=== PATIENT | female | born 1990 | race African-American/Black ===

== ENCOUNTER 2019-08-28 00:24 | Emergency (ER) | payer SELFPAY, OTHER ==
--- OUTSIDE RECORDS SUMMARY | 2019-08-28 00:28 | XMS REPORT ---
:1990 [facility] Organization [facility] Address [address] [place] [address] Care Team Providers Name Role Phone Unavailable Unavailable Unavailable Payers Payer Name Policy Type Policy Number Effective Date Expiration Date Problems This patient has no known problems. Allergies, Adverse Reactions, Alerts Allergy Allergy Status Severity Reaction(s) Onset Inactive Treating Comments Name Type Date Date Clinician No Known DA Active U 2013-01 Allergies -13 00:00:0 0 Medications This patient has no known medications. Results Test Description Test Time Test Comments Text Results Atomic Results Result Comments CBC W/O DIFF 2019-02-26 19:05:00 Test Item Value Reference Range Comments WHITE BLOOD CELL (test code=WBC) 8.4 K/MM3 3.8-9.8 RED BLOOD CELL (test code=RBC) 5.01 M/MM3 3.58-4.97 HEMOGLOBIN (test code=HGB) 10.9 G/DL 11.2-14.9 HEMATOCRIT (test code=HCT) 34.6 % 33.2-43.5 MEAN CELL VOLUME (test code=MCV) 69 fL 80.7-99.1 MEAN CELL HGB (test code=MCH) 21.8 pg 27.0-34.1 MEAN CELL HGB CONCETRATION (test code=MCHC) 31.5 % 32.2-35.7 RED CELL DISTRIBUTION WIDTH (test code=RDW) 17.2 % 12.1-15.2 PLATELET COUNT (test code=PLT) 338 K/MM3 129-368 NEUTROPHIL # (test code=NT#) 2.86 K/mm3 2.0-7.6 IMMATURE GRANULOCYTE # (test code=IG#) 0.02 x10 3/uL 0-0.03 LYMPHOCYTE # (test code=LY#) 4.77 K/mm3 1.0-3.8 MONOCYTE # (test code=MO#) 0.59 K/mm3 0.1-0.8 EOSINOPHIL # (test code=EO#) 0.11 K/mm3 0.0-0.2 BASOPHIL # (test code=BA#) 0.05 K/mm3 0.0-0.2 NUCLEATED RBC # (test code=NRBC#) 0.00 K/mm3 0.0-0.1 DIFFERENTIAL [id number] 19:05:00 Test Item Value Reference Range Comments RBC MORPHOLOGY REQUIRED (test code=RBCM) ABNORMAL ANISOCYTOSIS (test code=ANISO) SLIGHT NONE MICROCYTOSIS (test code=MICR) MODERATE NONE MACROCYTOSIS (test code=MACR) FEW NONE TARGET CELLS (test code=TGT) MODERATE NONE ELLIPTOCYTES (test code=ELL) FEW NONE PLATELET ESTIMATE (test code=PLTEST) ADEQUATE ADEQUATE PLATELET MORPHOLOGY (test code=PLTMORPH) NORMAL NORMAL BASIC METABOLIC [id number] 18:42:00 Test Item Value Reference Range Comments SODIUM (test code=NA) 138 MMOL/L 137-145 POTASSIUM (test code=K) 4.5 MMOL/L 3.5-5.1 CHLORIDE (test code=CL) 110 MMOL/L 98-107 CARBON DIOXIDE (test code=CO2) 22 MMOL/L 22-30 GLUCOSE (test code=GLU) 91 MG/DL 74-106 BLOOD UREA NITROGEN (test 15 MG/DL 7-17 code=BUN) GLOMERULAR FILTRATION RATE > 60 Reporting units: ml/min/1.73 (test code=GFR) m2 (Modified MDRD Formula)Reference Range: > or=60 ml/min/1.73 m2 CREATININE (test code=CREAT) 0.70 MG/DL 0.52-1.04 CALCIUM (test code=CA) 9.2 MG/DL 8.4-10.2 HEPATIC FUNCTION [id number] 18:42:00 Test Item Value Reference Range Comments TOTAL PROTEIN (test code=PROT) 7.1 G/DL 6.3-8.2 ALBUMIN (test code=ALB) 4.2 G/DL 3.5-5.0 BILIRUBIN TOTAL (test code=BILT) 0.5 MG/DL 0.2-1.3 BILIRUBIN DIRECT (test code=BILD) 0.0 MG/DL 0.0-0.3 SGOT/AST (test code=AST) 19 UNITS/L 14-36 SGPT/ALT (test code=ALT) 12 UNITS/L 9-52 ALKALINE PHOSPHATASE (test code=ALKP) 85 UNITS/L 38-126 [id number] 18:42:00 Test Item Value Reference Range Comments LIPASE (test code=LIP) 109 UNITS/L 23-300 HCG SERUM [id number] 18:42:00 Test Item Value Reference Range Comments HCG SERUM QUAL (test code=HCGQL) NEGATIVE NEGATIVE BASIC METABOLIC [id number] 18:40:00 Test Item Value Reference Range Comments SODIUM (test code=NA) 138 MMOL/L 137-145 POTASSIUM (test code=K) 4.5 MMOL/L 3.5-5.1 CHLORIDE (test code=CL) 110 MMOL/L 98-107 CARBON DIOXIDE (test code=CO2) 22 MMOL/L 22-30 GLUCOSE (test code=GLU) 91 MG/DL 74-106 BLOOD UREA NITROGEN (test 15 MG/DL 7-17 code=BUN) GLOMERULAR FILTRATION RATE > 60 Reporting units: ml/min/1.73 (test code=GFR) m2 (Modified MDRD Formula)Reference Range: > or=60 ml/min/1.73 m2 CREATININE (test code=CREAT) 0.70 MG/DL 0.52-1.04 CALCIUM (test code=CA) 9.2 MG/DL 8.4-10.2 HEPATIC FUNCTION [id number] 18:40:00 Test Item Value Reference Range Comments TOTAL PROTEIN (test code=PROT) 7.1 G/DL 6.3-8.2 ALBUMIN (test code=ALB) 4.2 G/DL 3.5-5.0 BILIRUBIN TOTAL (test code=BILT) 0.5 MG/DL 0.2-1.3 BILIRUBIN DIRECT (test code=BILD) 0.0 MG/DL 0.0-0.3 SGOT/AST (test code=AST) 19 UNITS/L 14-36 SGPT/ALT (test code=ALT) 12 UNITS/L 9-52 ALKALINE PHOSPHATASE (test code=ALKP) 85 UNITS/L 38-126 [id number] 18:40:00 Test Item Value Reference Range Comments LIPASE (test code=LIP) 109 UNITS/L 23-300 HCG SERUM [id number] 18:40:00 Test Item Value Reference Range Comments HCG SERUM QUAL (test code=HCGQL) NEGATIVE BASIC METABOLIC [id number] 18:39:00 Test Item Value Reference Range Comments SODIUM (test code=NA) 138 MMOL/L 137-145 POTASSIUM (test code=K) 4.5 MMOL/L 3.5-5.1 CHLORIDE (test code=CL) 110 MMOL/L 98-107 CARBON DIOXIDE (test code=CO2) 22 MMOL/L 22-30 GLUCOSE (test code=GLU) 91 MG/DL 74-106 BLOOD UREA NITROGEN (test 15 MG/DL 7-17 code=BUN) GLOMERULAR FILTRATION RATE > 60 Reporting units: ml/min/1.73 (test code=GFR) m2 (Modified MDRD Formula)Reference Range: > or=60 ml/min/1.73 m2 CREATININE (test code=CREAT) 0.70 MG/DL 0.52-1.04 CALCIUM (test code=CA) MG/DL 8.7-9.7 HEPATIC FUNCTION [id number] 18:39:00 Test Item Value Reference Range Comments TOTAL PROTEIN (test code=PROT) 7.1 G/DL 6.3-8.2 ALBUMIN (test code=ALB) 4.2 G/DL 3.5-5.0 BILIRUBIN TOTAL (test code=BILT) 0.5 MG/DL 0.2-1.3 BILIRUBIN DIRECT (test code=BILD) 0.0 MG/DL 0.0-0.3 SGOT/AST (test code=AST) 19 UNITS/L 14-36 SGPT/ALT (test code=ALT) UNITS/L 9-52 ALKALINE PHOSPHATASE (test code=ALKP) 85 UNITS/L 38-126 [id number] 18:39:00 Test Item Value Reference Range Comments LIPASE (test code=LIP) UNITS/L 23-300 HCG SERUM [id number] 18:39:00 Test Item Value Reference Range Comments HCG SERUM QUAL (test code=HCGQL) NEGATIVE BASIC METABOLIC [id number] 18:37:00 Test Item Value Reference Range Comments SODIUM (test code=NA) 138 MMOL/L 137-145 POTASSIUM (test code=K) 4.5 MMOL/L 3.5-5.1 CHLORIDE (test code=CL) 110 MMOL/L 98-107 CARBON DIOXIDE (test code=CO2) MMOL/L 22-30 GLUCOSE (test code=GLU) MG/DL 74-106 BLOOD UREA NITROGEN (test code=BUN) MG/DL 7-17 GLOMERULAR FILTRATION RATE (test code=GFR) CREATININE (test code=CREAT) MG/DL 0.52-1.04 CALCIUM (test code=CA) MG/DL 8.7-9.7 HEPATIC FUNCTION [id number] 18:37:00 Test Item Value Reference Range Comments TOTAL PROTEIN (test code=PROT) G/DL 6.3-8.2 ALBUMIN (test code=ALB) 4.2 G/DL 3.5-5.0 BILIRUBIN TOTAL (test code=BILT) MG/DL 0.2-1.3 BILIRUBIN DIRECT (test code=BILD) MG/DL 0.0-0.3 SGOT/AST (test code=AST) UNITS/L 15-37 SGPT/ALT (test code=ALT) UNITS/L 9-52 ALKALINE PHOSPHATASE (test code=ALKP) UNITS/L 38-126 [id number] 18:37:00 Test Item Value Reference Range Comments LIPASE (test code=LIP) UNITS/L 23-300 HCG SERUM [id number] 18:37:00 Test Item Value Reference Range Comments HCG SERUM QUAL (test code=HCGQL) NEGATIVE BASIC METABOLIC [id number] 18:36:00 Test Item Value Reference Range Comments SODIUM (test code=NA) 138 MMOL/L 137-145 POTASSIUM (test code=K) MMOL/L 3.5-5.1 CHLORIDE (test code=CL) 110 MMOL/L 98-107 CARBON DIOXIDE (test code=CO2) MMOL/L 22-30 GLUCOSE (test code=GLU) MG/DL 74-106 BLOOD UREA NITROGEN (test code=BUN) MG/DL 7-17 GLOMERULAR FILTRATION RATE (test code=GFR) CREATININE (test code=CREAT) MG/DL 0.52-1.04 CALCIUM (test code=CA) MG/DL 8.7-9.7 HEPATIC FUNCTION [id number] 18:36:00 Test Item Value Reference Range Comments TOTAL PROTEIN (test code=PROT) G/DL 6.3-8.2 ALBUMIN (test code=ALB) 4.2 G/DL 3.5-5.0 BILIRUBIN TOTAL (test code=BILT) MG/DL 0.2-1.3 BILIRUBIN DIRECT (test code=BILD) MG/DL 0.0-0.3 SGOT/AST (test code=AST) UNITS/L 15-37 SGPT/ALT (test code=ALT) UNITS/L 9-52 ALKALINE PHOSPHATASE (test code=ALKP) UNITS/L 38-126 [id number] 18:36:00 Test Item Value Reference Range Comments LIPASE (test code=LIP) UNITS/L 23-300 HCG SERUM [id number] 18:36:00 Test Item Value Reference Range Comments HCG SERUM QUAL (test code=HCGQL) NEGATIVE URINALYSIS [id number] 18:33:00 Test Item Value Reference Range Comments UA COLOR (test code=COLU) YELLOW YELLOW UA APPEARANCE (test SLIGHT CLOUDY CLEAR Previously reported code=APPU) result: CLEAR Edited by: [email or web address] on 02/26/19:162724 183: APPEARANCE previously reported as: CLEAR UA GLUCOSE DIPSTICK (test NORMAL MG/DL NORMAL code=DGLUU) UA BILIRUBIN DIPSTICK NEGATIVE MG/DL NEGATIVE (test code=BILU) UA KETONE DIPSTICK (test NEGATIVE MG/DL NEGATIVE code=KETU) UA SPECIFIC GRAVITY (test 1.015 1.003-1.030 code=SGU) UA BLOOD DIPSTICK (test 50 Art/mm3 NEGATIVE code=ARLENE) UA PH DIPSTICK (test 7.0 5.0-9.0 code=BREE) UA PROTEIN DIPSTICK (test NEGATIVE MG/DL NEGATIVE code=PROU) UA UROBILINIOGEN DIPSTICK 4 MG/DL NORMAL (test code=URO) UA NITRITE DIPSTICK (test NEGATIVE NEGATIVE code=ABEL) UA LEUKOCYTE ESTERASE 100 /mm3 NEGATIVE DIPSTICK (test code=LEUU) UA CULTURE NEEDED? (test NO, WBC<10 Criteria Culture Chk code=UACULT) SOURCE OF URINE: CLEAN CATCHUA [id number] 18:33:00 Test Item Value Reference Range Comments UA RBC (test code=RBCU) 3-5 RBC/HPF 0-3 UA WBC (test code=XWBCU) 3-5 WBC/HPF 0-5 UA EPITHELIAL CELLS (test code=EPIU) FEW EPI/HPF FEW UA BACTERIA (test code=XBACU) FEW NONE UA AMORPHOUS SEDIMENT (test code=AMORU) FEW NONE SOURCE OF URINE: CLEAN CATCHURINALYSIS [id number] 18:27:00 Test Item Value Reference Range Comments UA COLOR (test code=COLU) YELLOW YELLOW UA APPEARANCE (test code=APPU) CLEAR CLEAR UA GLUCOSE DIPSTICK (test code=DGLUU) NORMAL MG/DL NORMAL UA BILIRUBIN DIPSTICK (test code=BILU) NEGATIVE MG/DL NEGATIVE UA KETONE DIPSTICK (test code=KETU) NEGATIVE MG/DL NEGATIVE UA SPECIFIC GRAVITY (test code=SGU) 1.015 1.003-1.030 UA BLOOD DIPSTICK (test code=ARLENE) 50 Art/mm3 NEGATIVE UA PH DIPSTICK (test code=BREE) 7.0 5.0-9.0 UA PROTEIN DIPSTICK (test code=PROU) NEGATIVE MG/DL NEGATIVE UA UROBILINIOGEN DIPSTICK (test code=URO) 4 MG/DL NORMAL UA NITRITE DIPSTICK (test code=ABEL) NEGATIVE NEGATIVE UA LEUKOCYTE ESTERASE DIPSTICK (test 100 /mm3 NEGATIVE code=LEUU) UA CULTURE NEEDED? (test code=UACULT) Criteria Culture Chk SOURCE OF URINE: CLEAN CATCHUA [id number] 18:27:00 Test Item Value Reference Range Comments UA RBC (test code=RBCU) RBC/HPF 0-3 UA WBC (test code=XWBCU) WBC/HPF 0-5 UA EPITHELIAL CELLS (test code=EPIU) EPI/HPF FEW UA BACTERIA (test code=XBACU) NONE SOURCE OF URINE: CLEAN CATCHURINALYSIS [id number] 18:27:00 Test Item Value Reference Range Comments UA COLOR (test code=COLU) YELLOW YELLOW UA APPEARANCE (test code=APPU) CLEAR CLEAR UA GLUCOSE DIPSTICK (test code=DGLUU) NORMAL MG/DL NORMAL UA BILIRUBIN DIPSTICK (test code=BILU) NEGATIVE MG/DL NEGATIVE UA KETONE DIPSTICK (test code=KETU) NEGATIVE MG/DL NEGATIVE UA SPECIFIC GRAVITY (test code=SGU) 1.015 1.003-1.030 UA BLOOD DIPSTICK (test code=ARLENE) 50 Art/mm3 NEGATIVE UA PH DIPSTICK (test code=BREE) 7.0 5.0-9.0 UA PROTEIN DIPSTICK (test code=PROU) NEGATIVE MG/DL NEGATIVE UA UROBILINIOGEN DIPSTICK (test code=URO) 4 MG/DL NORMAL UA NITRITE DIPSTICK (test code=ABEL) NEGATIVE NEGATIVE UA LEUKOCYTE ESTERASE DIPSTICK (test 100 /mm3 NEGATIVE code=LEUU) UA CULTURE NEEDED? (test code=UACULT) Criteria Culture Chk SOURCE OF URINE: CLEAN CATCHUA [id number] 18:27:00 Test Item Value Reference Range Comments UA RBC (test code=RBCU) RBC/HPF 0-3 UA WBC (test code=XWBCU) WBC/HPF 0-5 UA EPITHELIAL CELLS (test code=EPIU) EPI/HPF FEW UA BACTERIA (test code=XBACU) NONE SOURCE OF URINE: CLEAN CATCHCBC W/O [id number] 18:25:00 Test Item Value Reference Range Comments WHITE BLOOD CELL (test code=WBC) 8.4 K/MM3 3.8-9.8 RED BLOOD CELL (test code=RBC) 5.01 M/MM3 3.58-4.97 HEMOGLOBIN (test code=HGB) 10.9 G/DL 11.2-14.9 HEMATOCRIT (test code=HCT) 34.6 % 33.2-43.5 MEAN CELL VOLUME (test code=MCV) 69 fL 80.7-99.1 MEAN CELL HGB (test code=MCH) 21.8 pg 27.0-34.1 MEAN CELL HGB CONCETRATION (test code=MCHC) 31.5 % 32.2-35.7 RED CELL DISTRIBUTION WIDTH (test code=RDW) 17.2 % 12.1-15.2 PLATELET COUNT (test code=PLT) 338 K/MM3 129-368 NEUTROPHIL # (test code=NT#) 2.86 K/mm3 2.0-7.6 IMMATURE GRANULOCYTE # (test code=IG#) 0.02 x10 3/uL 0-0.03 LYMPHOCYTE # (test code=LY#) 4.77 K/mm3 1.0-3.8 MONOCYTE # (test code=MO#) 0.59 K/mm3 0.1-0.8 EOSINOPHIL # (test code=EO#) 0.11 K/mm3 0.0-0.2 BASOPHIL # (test code=BA#) 0.05 K/mm3 0.0-0.2 NUCLEATED RBC # (test code=NRBC#) 0.00 K/mm3 0.0-0.1 DIFFERENTIAL [id number] 18:25:00 Test Item Value Reference Range Comments RBC MORPHOLOGY REQUIRED (test code=RBCM) PLATELET ESTIMATE (test code=PLTEST) ADEQUATE PLATELET MORPHOLOGY (test code=PLTMORPH) NORMAL CBC W/O [id number] 18:25:00 Test Item Value Reference Range Comments WHITE BLOOD CELL (test code=WBC) 8.4 K/MM3 3.8-9.8 RED BLOOD CELL (test code=RBC) 5.01 M/MM3 3.58-4.97 HEMOGLOBIN (test code=HGB) 10.9 G/DL 11.2-14.9 HEMATOCRIT (test code=HCT) 34.6 % 33.2-43.5 MEAN CELL VOLUME (test code=MCV) 69 fL 80.7-99.1 MEAN CELL HGB (test code=MCH) 21.8 pg 27.0-34.1 MEAN CELL HGB CONCETRATION (test code=MCHC) 31.5 % 32.2-35.7 RED CELL DISTRIBUTION WIDTH (test code=RDW) 17.2 % 12.1-15.2 PLATELET COUNT (test code=PLT) 338 K/MM3 129-368 NEUTROPHIL # (test code=NT#) 2.86 K/mm3 2.0-7.6 IMMATURE GRANULOCYTE # (test code=IG#) 0.02 x10 3/uL 0-0.03 LYMPHOCYTE # (test code=LY#) 4.77 K/mm3 1.0-3.8 MONOCYTE # (test code=MO#) 0.59 K/mm3 0.1-0.8 EOSINOPHIL # (test code=EO#) 0.11 K/mm3 0.0-0.2 BASOPHIL # (test code=BA#) 0.05 K/mm3 0.0-0.2 NUCLEATED RBC # (test code=NRBC#) 0.00 K/mm3 0.0-0.1 DIFFERENTIAL [id number] 18:25:00 Test Item Value Reference Range Comments RBC MORPHOLOGY REQUIRED (test code=RBCM) PLATELET ESTIMATE (test code=PLTEST) ADEQUATE PLATELET MORPHOLOGY (test code=PLTMORPH) NORMAL
[2019-08-28] MEDS ORDERED: AMLODIPINE 5 MG TAB ONE (01:04)
[2019-08-28] MEDS ORDERED: MORPHINE 2 MG/ML SYR ONE (01:04)
[2019-08-28] MEDS ORDERED: ONDANSETRON 4 MG/2 ML VIAL ONE (01:04)
[2019-08-28] MEDS ORDERED: LABETALOL 20 MG/4ML SYRINGE IV ONE ×2 (01:04→02:08)
[2019-08-28 01:33] LABS: Absolute Lymphocytes (CBC) 5.9 K/uL (0.7-4.9); Basophils % 0.5 % (0-1.3); Lymphocytes % 52.2 % (15.3-44.8); MPV 7.5 fL (7.6-11.3); RBC Red Blood Cell Count 5.62 M/uL (3.86-4.86)
[2019-08-28 01:34] LABS: Urine Blood 2+ (NEG); Urine Glucose NEGATIVE (NEG); Urine Protein NEGATIVE (NEG); Urine Specific Gravity >1.030 (1.005-1.030)
[2019-08-28 01:34] LABS: Protime INR 1.15
[2019-08-28 01:48] LABS: ALT/SGPT 53 U/L (12-78); AST/SGOT 27 U/L (15-37); Alkaline Phosphatase 109 U/L (45-117); BUN Blood Urea Nitrogen 14 mg/dL (7-18); Bicarbonate 26 mmol/L (21-32); Bilirubin Direct 0.1 mg/dL (0-0.2); Bilirubin Total 0.4 mg/dL (0.2-1.0); Glucose Level 87 mg/dL (74-106); Lipase 138 U/L (73-393); Magnesium 2.1 mg/dL (1.8-2.4); NT PRO-BNP 153 pg/mL (<125); Potassium 3.9 mmol/L (3.5-5.1); Protein, Total 7.6 g/dL (6.4-8.2); Sodium Level 139 mmol/L (136-145); Troponin (Emerg Dept Use Only) < 0.02 ng/mL (0.0-0.045)
[2019-08-28 01:59] LABS: Urine Amorphous Sediment 1+ /HPF (NONE SEEN); Urine Bacteria 20-50 /HPF (<20); Urine Culture Reflex Order REFLEXED; Urine Mucus 2+ /HPF (NONE SEEN)
[2019-08-28 02:00] LABS: Urine Sperm PRESENT (NONE SEEN); Urine Trichomonas PRESENT (NONE SEEN); Urine Yeast MANY (NONE SEEN)
[2019-08-28 02:03] LABS: Barbiturates NEGATIVE (NEGATIVE); Benzodiazepines NEGATIVE (NEGATIVE); Cocaine NEGATIVE (NEGATIVE); METHAMPHETAM NEGATIVE (NEGATIVE); Methadone NEGATIVE (NEGATIVE); Opiates NEGATIVE (NEGATIVE); Phencyclidine NEGATIVE (NEGATIVE); THC Cannibis POSITIVE (NEGATIVE)
[2019-08-28] MEDS ORDERED: LABETALOL HCL 100 MG TAB ONE (02:07)
[2019-08-28 02:14] LABS: Blood Morphology Comment NOTED (NOT SEEN); Elliptocytes 1+; Hypochromasia 2+; Macrocytosis 1+; Platelet Estimate ADEQ; Target Cells 2+
--- NOTE | 2019-08-28 02:40 | ER ---
Nurse's Notes [facility] Name: Karsten Zamora Age: 29 yrs Sex: Female : 1990 Arrival Date: 08/28/2019 Time: 00:28 Bed 5 Private MD: Diagnosis: Headache;Essential (primary) hypertension;Urinary tract infection, site not specified;Trichomoniasis Presentation: 08/27 00:45 Chief complaint: Patient states: Headache that began yesterday, worse today with light lp1 sensitivity, pain behind eyes, noise sensitivity; Patient states hx of migraines but knows this is more related to her blood pressure being high; Denies any chest pain, shortness of breath. Coronavirus screen: The patient has NOT traveled to a country currently being monitored by the CDC within the last 14 days. The patient has NOT had contact with any known and/or suspected case of coronavirus. Ebola Screen: No symptoms or risks identified at this time. Initial Sepsis Screen: Does the patient meet any 2 criteria? No. Patient's initial sepsis screen is negative. Does the patient have a suspected source of infection? No. Patient's initial sepsis screen is negative. Risk Assessment: Do you want to hurt yourself or someone else? Patient reports no desire to harm self or others. Onset of symptoms was August 27, 2019. 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 - Social history:: Smoking status: Patient reports the use of cigarette tobacco products, smokes one-half pack cigarettes per day. - Family history:: not pertinent. Screenin:47 Abuse screen: Denies threats or abuse. Denies injuries from another. Nutritional lp1 screening: No deficits noted. Tuberculosis screening: No symptoms or risk factors identified. Fall Risk None identified. Assessment: 08/26 12:55 General: Appears distressed, Behavior is crying. Pain: Complains of pain in forehead, ah right eye and left eye Pain does not radiate. Pain currently is 10 out of 10 on a pain scale. Quality of pain is described as throbbing, Pain began 1 day ago. Is continuous, Alleviated by darkness Aggravated by light Also complains of nausea. Neuro: Level of Consciousness is awake, alert, Oriented to person, place, time. Cardiovascular: Reports shortness of breath, when lying flat Heart tones S1 S2 present Capillary refill < 3 seconds. Respiratory: Airway is patent Respiratory effort is even, unlabored, Respiratory pattern is regular, symmetrical, Breath sounds are clear. GI: Bowel sounds present X 4 quads. Reports nausea. : No signs and/or symptoms were reported regarding the genitourinary system. EENT: No signs and/or symptoms were reported regarding the EENT system. Derm: Skin is intact, Skin is dry. Musculoskeletal: No signs and/or symptoms reported regarding the musculoskeletal system. 08/27 01:30 Reassessment: Patient appears in no apparent distress at this time. Patient is alert, ah oriented x 3, equal unlabored respirations, skin warm/dry/pink. Pt laughing and joking with her daughter about the way the morphine makes her feel. She states that she does have some relief right now with her headache. 02:30 Reassessment: Patient appears in no apparent distress at this time. Patient and/or ah family updated on plan of care and expected duration. Pain level reassessed. Patient is alert, oriented x 3, equal unlabored respirations, skin warm/dry/pink. Pt lying in bed resting with eyes closed and resp even and unlabored. No needs voiced at this time. Patient states feeling better. Patient states symptoms have improved. Vital Signs: 00:45 BP 187 / 116; Pulse 84; Resp 18; Temp 98.3(O); Pulse Ox 99% on R/A; Weight 83.91 kg lp1 (R); Height 5 ft. 5 in. (165.10 cm); Pain 10/10; 01:15 BP 186 / 122; ah 01:20 BP 187 / 112; ah 02:40 BP 150 / 81; Pulse 81; Resp 17; Pulse Ox 99% ; rr5 02:45 BP 142 / 89; ah 00:45 Body Mass Index 30.79 (83.91 kg, 165.10 cm) lp1 ED Course: 00:28 Patient arrived in ED. jg7 00:47 Triage completed. lp1 00:47 Arm band placed on. lp1 00:48 Anny Ochoa, RN is Primary Nurse. ah 00:48 Patient has correct armband on for positive identification. Pulse ox on. NIBP on. lp1 00:51 Thor Thornton MD is Attending Physician. toñito 01:21 UDS Sent. ds4 01:21 CBC with Automated Diff Sent. ds4 01:22 Basic Metabolic Panel Sent. ds4 01:22 Basic Metabolic Panel Sent. ds4 01:22 CBC with Diff Sent. ds4 01:22 LFT's Sent. ds4 01:22 Magnesium Sent. ds4 01:22 NT PRO-BNP Sent. ds4 01:22 PT-INR Sent. ds4 01:22 Troponin (emerg Dept Use Only) Sent. ds4 01:31 X-ray(s) taken. ah 01:34 XRAY Chest (1 view) In Process Unspecified. EDMS 01:[address] via wheelchair. ah 01:50 Patient moved back from CT. ah 01:54 ED physician to see patient. ah 01:56 CT Head Brain wo Cont In Process Unspecified. EDMS 02:39 Suleman Vazquez MD is Referral Physician. toñito 03:00 No provider procedures requiring assistance completed. IV discontinued, intact, ah bleeding controlled, No redness/swelling at site. Pressure dressing applied. Administered Medications: 01:20 Drug: Norvasc 10 mg Route: PO; ah 03:09 Follow up: Response: No adverse reaction ah 01:22 Drug: Zofran (Ondansetron) 4 mg Route: IVP; Site: left antecubital; ah 03:09 Follow up: Response: No adverse reaction ah 01:23 Drug: morphine 2 mg Route: IVP; Site: left antecubital; ah 03:09 Follow up: Response: No adverse reaction ah 01:25 Drug: Trandate 10 mg Route: IVP; Site: left antecubital; ah 03:09 Follow up: Response: No adverse reaction ah 02:05 Drug: Trandate 100 mg Route: PO; ah 03:08 Follow up: Response: No adverse reaction ah 02:15 Drug: Trandate 20 mg Route: IVP; Site: left antecubital; ah 03:08 Follow up: Response: No adverse reaction 02:44 Drug: Rocephin 1 grams Route: IV; Rate: per protocol; Site: left antecubital; rr5 03:08 Follow up: Response: No adverse reaction; IV Status: Completed infusion; IV Intake: 10ml 02:44 Drug: Hydrochlorothiazide 25 mg Route: PO; rr5 03:08 Follow up: Response: No adverse reaction ah Intake: 03:08 IV: 10ml; Total: 10ml. Outcome: 02:39 Discharge ordered by . toñito 03:00 Discharged to home ambulatory. 03:00 Condition: stable 03:00 Discharge instructions given to patient, Instructed on discharge instructions, follow up and referral plans. no drinking with medication, medication usage, Demonstrated understanding of instructions, follow-up care, medications, Prescriptions given X 5 03:11 Patient left the ED. Signatures: Dispatcher [employer] EDMS Thor Thornton MD MD cha Pena, Laura, RN RN lp1 Cirilo Truong ds4 Jt Blank RN RN rr5 Veronica Duggan Amy, RN RN
--- NOTE | 2019-08-28 02:41 | EDPHYS ---
Physician Documentation [facility] Name: Karsten Zamora Age: 29 yrs Sex: Female : 1990 Arrival Date: 08/28/2019 Time: 00:28 Bed 5 Private MD: KATIE Physician Thor Thornton HPI: 08/27 01:57 This 29 yrs old Black Female presents to ER via Ambulatory with complaints of Headache, toñito High Blood Pressure, Numbness Of Face. 01:57 The patient complains of pain to the forehead, right eye, left eye, left side of toñito forehead, left temporal area, right temporal area and right side of forehead. The patient describes the headache as a pressure. Onset: The symptoms/episode began/occurred 3 day(s) ago. Associated signs and symptoms: The patient has no apparent associated signs or symptoms. Severity of symptoms: At its worst the pain was mild, moderate, in the emergency department the pain is unchanged. Headache History: Denies prior headaches. The symptoms are alleviated by nothing. the symptoms are aggravated by nothing. The patient has experienced similar episodes in the past, a few times. 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 - Social history:: Smoking status: Patient reports the use of cigarette tobacco products, smokes one-half pack cigarettes per day. - Family history:: not pertinent. ROS: 01:57 Constitutional: Negative for fever, chills, and weight loss, Eyes: Negative for injury, toñito pain, redness, and discharge, ENT: Negative for injury, pain, and discharge, Neck: Negative for injury, pain, and swelling, Cardiovascular: Negative for chest pain, palpitations, and edema, Respiratory: Negative for shortness of breath, cough, wheezing, and pleuritic chest pain, Abdomen/GI: Negative for abdominal pain, nausea, vomiting, diarrhea, and constipation, Back: Negative for injury and pain, : Negative for injury, bleeding, discharge, and swelling, MS/Extremity: Negative for injury and deformity, Skin: Negative for injury, rash, and discoloration, Psych: Negative for depression, anxiety, suicide ideation, homicidal ideation, and hallucinations, Allergy/Immunology: Negative for hives, rash, and allergies, Endocrine: Negative for neck swelling, polydipsia, polyuria, polyphagia, and marked weight changes, Hematologic/Lymphatic: Negative for swollen nodes, abnormal bleeding, and unusual bruising. Exam: 01:57 Constitutional: This is a well developed, well nourished patient who is awake, alert, toñito and in no acute distress. Head/Face: Normocephalic, atraumatic. Eyes: Pupils equal round and reactive to light, extra-ocular motions intact. Lids and lashes normal. Conjunctiva and sclera are non-icteric and not injected. Cornea within normal limits. Periorbital areas with no swelling, redness, or edema. ENT: Nares patent. No nasal discharge, no septal abnormalities noted. Tympanic membranes are normal and external auditory canals are clear. Oropharynx with no redness, swelling, or masses, exudates, or evidence of obstruction, uvula midline. Mucous membranes moist. Neck: Trachea midline, no thyromegaly or masses palpated, and no cervical lymphadenopathy. Supple, full range of motion without nuchal rigidity, or vertebral point tenderness. No Meningismus. Chest/axilla: Normal chest wall appearance and motion. Nontender with no deformity. No lesions are appreciated. Cardiovascular: Regular rate and rhythm with a normal S1 and S2. No gallops, murmurs, or rubs. Normal PMI, no JVD. No pulse deficits. Respiratory: Lungs have equal breath sounds bilaterally, clear to auscultation and percussion. No rales, rhonchi or wheezes noted. No increased work of breathing, no retractions or nasal flaring. Abdomen/GI: Soft, non-tender, with normal bowel sounds. No distension or tympany. No guarding or rebound. No evidence of tenderness throughout. Back: No spinal tenderness. No costovertebral tenderness. Full range of motion. Skin: Warm, dry with normal turgor. Normal color with no rashes, no lesions, and no evidence of cellulitis. MS/ Extremity: Pulses equal, no cyanosis. Neurovascular intact. Full, normal range of motion. Neuro: Awake and alert, GCS 15, oriented to person, place, time, and situation. Cranial nerves II-XII grossly intact. Motor strength 5/5 in all extremities. Sensory grossly intact. Cerebellar exam normal. Normal gait. Psych: Awake, alert, with orientation to person, place and time. Behavior, mood, and affect are within normal limits. 01:57 Musculoskeletal/extremity: DVT Exam: No signs of deep vein thrombosis. no pain, no swelling, no tenderness, negative Homans' sign noted on exam, no appreciated bluish discoloration, no erythema, no increased warmth. Vital Signs: 00:45 BP 187 / 116; Pulse 84; Resp 18; Temp 98.3(O); Pulse Ox 99% on R/A; Weight 83.91 kg lp1 (R); Height 5 ft. 5 in. (165.10 cm); Pain 10/10; 01:15 BP 186 / 122; ah 01:20 BP 187 / 112; ah 02:40 BP 150 / 81; Pulse 81; Resp 17; Pulse Ox 99% ; rr5 02:45 BP 142 / 89; ah 00:45 Body Mass Index 30.79 (83.91 kg, 165.10 cm) lp1 MDM: 00:56 Patient medically screened. [place] 01:59 Data reviewed: vital signs, nurses notes, lab test result(s), EKG, radiologic studies, [place] CT scan, plain films. 03 00:55 Order name: Basic Metabolic Panel [place] 08/27 00:55 Order name: CBC with Diff [place] 08/27 00:55 Order name: LFT's; Complete Time: 01:55 [place] 08/27 00:55 Order name: Magnesium; Complete Time: 01:56 [place] 08/27 00:55 Order name: NT PRO-BNP; Complete Time: 01:55 [place] 08/27 00:55 Order name: PT-INR; Complete Time: 01:55 [place] 08/27 00:55 Order name: Troponin (emerg Dept Use Only); Complete Time: 01:56 [place] 08/27 00:55 Order name: Lipase; Complete Time: 01:56 [place] 08/27 00:55 Order name: UDS; Complete Time: 02:36 [place] 08/27 00:55 Order name: Basic Metabolic Panel; Complete Time: 01:55 [facility]OR 08/27 00:55 Order name: CBC with Automated Diff; Complete Time: 02:36 EDMS 08/27 01:21 Order name: Urine Microscopic Only; Complete Time: 02:36 ds4 08/27 01:27 Order name: Urine Dipstick--Ancillary (enter results); Complete Time: 01:55 mw2 08/27 01:27 Order name: Urine --Ancillary (enter results); Complete Time: 01:55 [facility] 08/27 00:55 Order name: XRAY Chest (1 view) [place] 08/27 00:55 Order name: EKG; Complete Time: 00:56 [place] 08/27 00:55 Order name: Cardiac monitoring; Complete Time: 01:21 [place] 08/27 00:55 Order name: EKG - Nurse/Tech; Complete Time: 01:21 [place] 08/27 00:55 Order name: IV Saline Lock; Complete Time: 01:21 [place] 08/27 00:55 Order name: CT Head Brain wo Cont [place] 08/27 02:02 Order name: Urine Culture [facility] 08/27 02:14 Order name: Manual Differential; Complete Time: 02:36 [facility] 08/27 00:55 Order name: Labs collected and sent; Complete Time: 01:21 [place] 08/27 00:55 Order name: O2 Per Protocol; Complete Time: 01:21 [place] 08/27 00:55 Order name: O2 Sat Monitoring; Complete Time: 01:22 [place] 08/27 00:55 Order name: Urine Dipstick-Ancillary (obtain specimen); Complete Time: 01: [place] 08/27 00:55 Order name: Urine Test (obtain specimen); Complete Time: 01:21 [place] Administered Medications: 01:20 Drug: Norvasc 10 mg Route: PO; 03:09 Follow up: Response: No adverse reaction 01:22 Drug: Zofran (Ondansetron) 4 mg Route: IVP; Site: left antecubital; 03:09 Follow up: Response: No adverse reaction 01:23 Drug: morphine 2 mg Route: IVP; Site: left antecubital; 03:09 Follow up: Response: No adverse reaction 01:25 Drug: Trandate 10 mg Route: IVP; Site: left antecubital; 03:09 Follow up: Response: No adverse reaction 02:05 Drug: Trandate 100 mg Route: PO; 03:08 Follow up: Response: No adverse reaction 02:15 Drug: Trandate 20 mg Route: IVP; Site: left antecubital; ah 03:08 Follow up: Response: No adverse reaction 02:44 Drug: Rocephin 1 grams Route: IV; Rate: per protocol; Site: left antecubital; rr5 03:08 Follow up: Response: No adverse reaction; IV Status: Completed infusion; IV Intake: 10mlah 02:44 Drug: Hydrochlorothiazide 25 mg Route: PO; rr5 03:08 Follow up: Response: No adverse reaction Disposition: 08/28/19 02:39 Discharged to Home. Impression: Headache, Essential (primary) hypertension, Urinary tract infection, site not specified, Trichomoniasis. - Condition is Stable. - Discharge Instructions: General Headache Without Cause, Hypertension, Trichomoniasis, Urinary Tract Infection, Adult, Urinary Tract Infection, Adult, Poxm-je-Erma, Hypertension, [id number], How to Take Your Blood Pressure, Mxqz-hp-Bowl, Aspirin and Your Heart, General Headache Without Cause, Gfwj-[id number], Managing Your Hypertension. - Prescriptions for Norvasc 5 mg Oral Tablet - take 1 tablet by ORAL route once daily; 20 tablet. Trandate 200 mg Oral Tablet - take 0.5 tablet by ORAL route every 12 hours; 30 tablet. Hydrochlorothiazide 12.5 mg Oral Capsule - take 1 tablet by ORAL route once daily; 20 tablet. Flagyl 500 mg Oral Tablet - take 4 tablet by ORAL route one time for 1 day; 4 tablet. Bactrim DS 800- 160 mg Oral Tablet - take 1 tablet by ORAL route every 12 hours for 7 days; 14 tablet. - Medication Reconciliation Form, Thank You Letter, Antibiotic Education, Prescription Opioid Use form. - Follow up: Private Physician; When: 2 - 3 days; Reason: Recheck today's complaints, Continuance of care, Re-evaluation by your physician. Follow up: Suleman Vazqeuz; When: 2 - 3 days; Reason: Recheck today's complaints, Continuance of care, Re-evaluation by your physician. - Problem is new. - Symptoms have improved. Signatures: Dispatcher [employer] Thor Zhu MD MD cha Pena, Laura RN RN lp1 Jt Blank RN RN rr5 Anny Ochoa RN RN Corrections: (The following items were deleted from the chart) 03:11 02:39 08/28/2019 02:39 Discharged to Home. Impression: Headache; Essential (primary) ah hypertension; Urinary tract infection, site not specified; Trichomoniasis. Condition is Stable. Discharge Instructions: General Headache Without Cause, Hypertension, Hypertension, [id number], How to Take Your Blood Pressure, [id number], Aspirin and Your Heart, General Headache Without Cause, [id number]-[id number], Managing Your Hypertension. Prescriptions for Norvasc 5 mg Oral Tablet - take 1 tablet by ORAL route once daily; 20 tablet, Trandate 200 mg Oral Tablet - take 0.5 tablet by ORAL route every 12 hours; 30 tablet, Hydrochlorothiazide 12.5 mg Oral Capsule - take 1 tablet by ORAL route once daily; 20 tablet. and Forms are Medication Reconciliation Form, Thank You Letter, Antibiotic Education, Prescription Opioid Use. Follow up: Private Physician; When: 2 - 3 days; Reason: Recheck today's complaints, Continuance of care, Re-evaluation by your physician. Follow up: Suleman Vazquez; When: 2 - 3 days; Reason: Recheck today's complaints, Continuance of care, Re-evaluation by your physician. Problem is new. Symptoms have improved. toñito
[2019-08-28] MEDS ORDERED: hydroCHLOROthiazide 25 MG TAB ONE (02:44)
[2019-08-28] MEDS ORDERED: CEFTRIAXONE/SWI 1gm 1 GM/10 ML SYR ONE (02:45)
[2019-08-28 03:35] VITALS: BP 142/89; O2SAT 99
[2019-08-28 04:03] VITALS: TEMP 98.3
--- NOTE | 2019-08-28 07:29 | EKG ---
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
--- NOTE | 2019-08-28 08:37 | RAD REPORT ---
EXAM DESCRIPTION: RAD - Chest Single View - 08/28/2019 1:34 am CLINICAL HISTORY: COUGH COMPARISON: None TECHNIQUE: AP portable chest image was obtained 08/28/2019 1:34 am . FINDINGS: Lungs are clear. Heart and vasculature are normal. No measurable pleural effusion and no p neumothorax. No acute bony abnormality seen. No acute aortic findings suspected. IMPRESSION: No acute cardiopulmonary process.
--- NOTE | 2019-08-28 11:34 | RAD REPORT ---
EXAM DESCRIPTION: CT - Head Brain Wo Cont - 08/28/2019 6:00 am CLINICAL HISTORY: The patient is 29 years old and is Female; HEADACHE TECHNIQUE: Axial computed tomography images of the head/brain without intravenous contrast. Sagitt al and coronal reformatted images were created and reviewed. This CT exam was performed using one o r more of the following dose reduction techniques: automated exposure control, adjustment of the mA and/or kV according to patient size, and/or use of iterative reconstruction technique. COMPARISON: No relevant prior studies available. FINDINGS: BRAIN: Unremarkable. The lubin-white matter differentiation is preserved . No hemorrhag e. No significant white matter disease. No edema. No extra-axial fluid collections. VENTRICLES: Unremarkable. No ventriculomegaly. BONES/JOINTS: No acute fracture. SOFT TISSUES: Unremarkable. SINUSES: Unremarkable as visualized. No acute sinusitis. MASTOID AIR CELLS: Unremarkable as visualized. No mastoid effusion. ORBITS: Unremarkable as visualized. IMPRESSION: No acute intracranial findings. Electronically signed by: Jenna Abad MD 08/28/2019 2:18 AM CDT Due to temporary technical issues with the PACS/Fluency reporting system, reports are being signed by the in house radiologist as a courtesy to ensure prompt reporting. The interpreting radiologist is f ully responsible for the content of the report.
== END 2019-08-28 03:11 | disposition home or self-care (01) ==
LOC: ER 00:24
DX: N39.0 Urinary tract infection, site not specified (principal); A59.9 Trichomoniasis, unspecified; I10 Essential (primary) hypertension; Z72.0 Tobacco use
CPT/HCPCS: 96365; 93005; 87088; 85025; 87086; 80048; 36415; 83735; 81025; 85610; 80076; 80307 ×8; 84484; 83690; 83880; 70450; 71045; 96375; 99284; J2270; J0696; J2405; 81003; 81015

== ENCOUNTER 2020-08-22 21:30 | Emergency (ER) | payer OTHER ==
--- OUTSIDE RECORDS SUMMARY | 2020-08-22 21:32 | XMS REPORT | Continuity of Care Document ---
:1990 Author Organization [facility] t Address [address] [place] [address] Care Team Providers Name Role Phone Unavailable Unavailable Unavailable Payers Payer Name Policy Type Policy Number Effective Date Expiration Date S ource Problems This patient has no known problems. Allergies, Adverse Reactions, Alerts Allergy Allergy Status Severity Reaction(s) Onset Inactive Treating Comm ents Source Name Type Date Date Clinician No Known DA Active U [facility] All[facility]ie 01-27 s 00:00: [address] Medications This patient has no known medications. Procedures This patient has no known procedures. Results Test Description Test Time Test Comments Results Result Comments Source CBC W/O DIFF 2019-02-26 19:05:00 Test Item Value Reference Range Interpretation Comme nts WHITE BLOOD CELL (test code = WBC) 8.4 K/MM3 3.8-9.8 N RED BLOOD CELL (test code = RBC) 5.01 M/MM3 3.58-4.97 H HEMOGLOBIN (test code = HGB) 10.9 G/DL 11.2-14.9 L HEMATOCRIT (test code = HCT) 34.6 % 33.2-43.5 N MEAN CELL VOLUME (test code = MCV) 69 fL 80.7-99.1 L MEAN CELL HGB (test code = MCH) 21.8 pg 27.0-34.1 L MEAN CELL HGB CONCETRATION (test code = MCHC) 31.5 % 32.2-35. 7 L RED CELL DISTRIBUTION WIDTH (test code = RDW) 17.2 % 12.1-15. 2 H PLATELET COUNT (test code = PLT) 338 K/MM3 129-368 N NEUTROPHIL # (test code = NT#) 2.86 K/mm3 2.0-7.6 N IMMATURE GRANULOCYTE # (test code = IG#) 0.02 x10 3/uL 0-0.03 N LYMPHOCYTE # (test code = LY#) 4.77 K/mm3 1.0-3.8 H MONOCYTE # (test code = MO#) 0.59 K/mm3 0.1-0.8 N EOSINOPHIL # (test code = EO#) 0.11 K/mm3 0.0-0.2 N BASOPHIL # (test code = BA#) 0.05 K/mm3 0.0-0.2 N NUCLEATED RBC # (test code = NRBC#) 0.00 K/mm3 0.0-0.1 N DIFFERENTIAL [id number] 19:05:00 Test Item Value Reference Range Interpretation Comments RBC MORPHOLOGY REQUIRED (test code = ABNORMAL RBCM) ANISOCYTOSIS (test code = ANISO) SLIGHT NONE MICROCYTOSIS (test code = MICR) MODERATE NONE MACROCYTOSIS (test code = MACR) FEW NONE TARGET CELLS (test code = TGT) MODERATE NONE ELLIPTOCYTES (test code = ELL) FEW NONE PLATELET ESTIMATE (test code = ADEQUATE ADEQUATE PLTEST) PLATELET MORPHOLOGY (test code = NORMAL NORMAL PLTMORPH) BASIC METABOLIC [id number] 18:42:00 Test Item Value Reference Range Interpretation Comments SODIUM (test code = 138 MMOL/L 137-145 N NA) POTASSIUM (test code = 4.5 MMOL/L 3.5-5.1 N K) CHLORIDE (test code = 110 MMOL/L 98-107 H CL) CARBON DIOXIDE (test 22 MMOL/L 22-30 N code = CO2) GLUCOSE (test code = 91 MG/DL 74-106 N GLU) BLOOD UREA NITROGEN 15 MG/DL 7-17 N (test code = BUN) GLOMERULAR FILTRATION > 60 Report ing units: RATE (test code = GFR) ml/mi n/1.73 m2 (Modified MDRD Formula)Referen ce Range: > or = 6 0 ml/min/1.73 m2 CREATININE (test code 0.70 MG/DL 0.52-1.04 N = CREAT) CALCIUM (test code = 9.2 MG/DL 8.4-10.2 N CA) HEPATIC FUNCTION [id number] 18:42:00 Test Item Value Reference Range Interpretation Comments TOTAL PROTEIN (test code = PROT) 7.1 G/DL 6.3-8.2 N ALBUMIN (test code = ALB) 4.2 G/DL 3.5-5.0 N BILIRUBIN TOTAL (test code = BILT) 0.5 MG/DL 0.2-1.3 N BILIRUBIN DIRECT (test code = 0.0 MG/DL 0.0-0.3 N BILD) SGOT/AST (test code = AST) 19 UNITS/L 14-36 N SGPT/ALT (test code = ALT) 12 UNITS/L 9-52 N ALKALINE PHOSPHATASE (test code = 85 UNITS/L 38-126 N ALKP) [id number] 18:42:00 Test Item Value Reference Range Interpretation Comments LIPASE (test code = LIP) 109 UNITS/L 23-300 N HCG SERUM [id number] 18:42:00 Test Item Value Reference Range Interpretation Comments HCG SERUM QUAL (test code = HCGQL) NEGATIVE NEGATIVE A BASIC METABOLIC [id number] 18:40:00 Test Item Value Reference Range Interpretation Comments SODIUM (test code = 138 MMOL/L 137-145 N NA) POTASSIUM (test code = 4.5 MMOL/L 3.5-5.1 N K) CHLORIDE (test code = 110 MMOL/L 98-107 H CL) CARBON DIOXIDE (test 22 MMOL/L 22-30 N code = CO2) GLUCOSE (test code = 91 MG/DL 74-106 N GLU) BLOOD UREA NITROGEN 15 MG/DL 7-17 N (test code = BUN) GLOMERULAR FILTRATION > 60 Report ing units: RATE (test code = GFR) ml/mi n/1.73 m2 (Modified MDRD Formula)Referen ce Range: > or = 6 0 ml/min/1.73 m2 CREATININE (test code 0.70 MG/DL 0.52-1.04 N = CREAT) CALCIUM (test code = 9.2 MG/DL 8.4-10.2 N CA) HEPATIC FUNCTION [id number] 18:40:00 Test Item Value Reference Range Interpretation Comments TOTAL PROTEIN (test code = PROT) 7.1 G/DL 6.3-8.2 N ALBUMIN (test code = ALB) 4.2 G/DL 3.5-5.0 N BILIRUBIN TOTAL (test code = BILT) 0.5 MG/DL 0.2-1.3 N BILIRUBIN DIRECT (test code = 0.0 MG/DL 0.0-0.3 N BILD) SGOT/AST (test code = AST) 19 UNITS/L 14-36 N SGPT/ALT (test code = ALT) 12 UNITS/L 9-52 N ALKALINE PHOSPHATASE (test code = 85 UNITS/L 38-126 N ALKP) [id number] 18:40:00 Test Item Value Reference Range Interpretation Comments LIPASE (test code = LIP) 109 UNITS/L 23-300 N HCG SERUM [id number] 18:40:00 Test Item Value Reference Range Interpretation Comments HCG SERUM QUAL (test code = HCGQL) NEGATIVE BASIC METABOLIC [id number] 18:39:00 Test Item Value Reference Range Interpretation Comments SODIUM (test code = 138 MMOL/L 137-145 N NA) POTASSIUM (test code = 4.5 MMOL/L 3.5-5.1 N K) CHLORIDE (test code = 110 MMOL/L 98-107 H CL) CARBON DIOXIDE (test 22 MMOL/L 22-30 N code = CO2) GLUCOSE (test code = 91 MG/DL 74-106 N GLU) BLOOD UREA NITROGEN 15 MG/DL 7-17 N (test code = BUN) GLOMERULAR FILTRATION > 60 Report ing units: RATE (test code = GFR) ml/mi n/1.73 m2 (Modified MDRD Formula)Referen ce Range: > or = 6 0 ml/min/1.73 m2 CREATININE (test code 0.70 MG/DL 0.52-1.04 N = CREAT) CALCIUM (test code = MG/DL 8.7-9.7 CA) HEPATIC FUNCTION [id number] 18:39:00 Test Item Value Reference Range Interpretation Comments TOTAL PROTEIN (test code = PROT) 7.1 G/DL 6.3-8.2 N ALBUMIN (test code = ALB) 4.2 G/DL 3.5-5.0 N BILIRUBIN TOTAL (test code = BILT) 0.5 MG/DL 0.2-1.3 N BILIRUBIN DIRECT (test code = 0.0 MG/DL 0.0-0.3 N BILD) SGOT/AST (test code = AST) 19 UNITS/L 14-36 N SGPT/ALT (test code = ALT) UNITS/L 9-52 ALKALINE PHOSPHATASE (test code = 85 UNITS/L 38-126 N ALKP) [id number] 18:39:00 Test Item Value Reference Range Interpretation Comments LIPASE (test code = LIP) UNITS/L 23-300 HCG SERUM [id number] 18:39:00 Test Item Value Reference Range Interpretation Comments HCG SERUM QUAL (test code = HCGQL) NEGATIVE BASIC METABOLIC [id number] 18:37:00 Test Item Value Reference Range Interpretation Comments SODIUM (test code = NA) 138 MMOL/L 137-145 N POTASSIUM (test code = K) 4.5 MMOL/L 3.5-5.1 N CHLORIDE (test code = CL) 110 MMOL/L 98-107 H CARBON DIOXIDE (test code = CO2) MMOL/L 22-30 GLUCOSE (test code = GLU) MG/DL 74-106 BLOOD UREA NITROGEN (test code = MG/DL 7-17 BUN) GLOMERULAR FILTRATION RATE (test code = GFR) CREATININE (test code = CREAT) MG/DL 0.52-1.04 CALCIUM (test code = CA) MG/DL 8.7-9.7 HEPATIC FUNCTION [id number] 18:37:00 Test Item Value Reference Range Interpretation Comments TOTAL PROTEIN (test code = PROT) G/DL 6.3-8.2 ALBUMIN (test code = ALB) 4.2 G/DL 3.5-5.0 N BILIRUBIN TOTAL (test code = BILT) MG/DL 0.2-1.3 BILIRUBIN DIRECT (test code = BILD) MG/DL 0.0-0.3 SGOT/AST (test code = AST) UNITS/L 15-37 SGPT/ALT (test code = ALT) UNITS/L 9-52 ALKALINE PHOSPHATASE (test code = UNITS/L 38-126 ALKP) [id number] 18:37:00 Test Item Value Reference Range Interpretation Comments LIPASE (test code = LIP) UNITS/L 23-300 HCG SERUM [id number] 18:37:00 Test Item Value Reference Range Interpretation Comments HCG SERUM QUAL (test code = HCGQL) NEGATIVE BASIC METABOLIC [id number] 18:36:00 Test Item Value Reference Range Interpretation Comments SODIUM (test code = NA) 138 MMOL/L 137-145 N POTASSIUM (test code = K) MMOL/L 3.5-5.1 CHLORIDE (test code = CL) 110 MMOL/L 98-107 H CARBON DIOXIDE (test code = CO2) MMOL/L 22-30 GLUCOSE (test code = GLU) MG/DL 74-106 BLOOD UREA NITROGEN (test code = MG/DL 7-17 BUN) GLOMERULAR FILTRATION RATE (test code = GFR) CREATININE (test code = CREAT) MG/DL 0.52-1.04 CALCIUM (test code = CA) MG/DL 8.7-9.7 HEPATIC FUNCTION [id number] 18:36:00 Test Item Value Reference Range Interpretation Comments TOTAL PROTEIN (test code = PROT) G/DL 6.3-8.2 ALBUMIN (test code = ALB) 4.2 G/DL 3.5-5.0 N BILIRUBIN TOTAL (test code = BILT) MG/DL 0.2-1.3 BILIRUBIN DIRECT (test code = BILD) MG/DL 0.0-0.3 SGOT/AST (test code = AST) UNITS/L 15-37 SGPT/ALT (test code = ALT) UNITS/L 9-52 ALKALINE PHOSPHATASE (test code = UNITS/L 38-126 ALKP) [id number] 18:36:00 Test Item Value Reference Range Interpretation Comments LIPASE (test code = LIP) UNITS/L 23-300 HCG SERUM [id number] 18:36:00 Test Item Value Reference Range Interpretation Comments HCG SERUM QUAL (test code = HCGQL) NEGATIVE URINALYSIS [id number] 18:33:00 Test Item Value Reference Range Interpretation Comments UA COLOR (test code = YELLOW YELLOW COLU) UA APPEARANCE (test SLIGHT CLOUDY CLEAR Previou sly code = APPU) reported result : CLEAR Edited by : ERI on 02/26/19:638210 /08/05: APPEARANCE previously reported as: CLEAR UA GLUCOSE DIPSTICK NORMAL MG/DL NORMAL (test code = DGLUU) UA BILIRUBIN DIPSTICK NEGATIVE MG/DL NEGATIVE (test code = BILU) UA KETONE DIPSTICK NEGATIVE MG/DL NEGATIVE (test code = KETU) UA SPECIFIC GRAVITY 1.015 1.003-1.030 N (test code = SGU) UA BLOOD DIPSTICK 50 Art/mm3 NEGATIVE A (test code = ARLENE) UA PH DIPSTICK (test 7.0 5.0-9.0 N code = BREE) UA PROTEIN DIPSTICK NEGATIVE MG/DL NEGATIVE (test code = PROU) UA UROBILINIOGEN 4 MG/DL NORMAL A DIPSTICK (test code = URO) UA NITRITE DIPSTICK NEGATIVE NEGATIVE (test code = ABEL) UA LEUKOCYTE ESTERASE 100 /mm3 NEGATIVE A DIPSTICK (test code = LEUU) UA CULTURE NEEDED? NO, WBC<10 Culture Chk (test code = UACULT) Criteria SOURCE OF URINE: CLEAN CATCHUA [id number] 18:33:00 Test Item Value Reference Range Interpretation Comments UA RBC (test code = RBCU) 3-5 RBC/HPF 0-3 A UA WBC (test code = XWBCU) 3-5 WBC/HPF 0-5 UA EPITHELIAL CELLS (test code = FEW EPI/HPF FEW EPIU) UA BACTERIA (test code = XBACU) FEW NONE UA AMORPHOUS SEDIMENT (test code FEW NONE A = AMORU) SOURCE OF URINE: CLEAN CATCHURINALYSIS [id number] 18:27:00 Test Item Value Reference Range Interpretation Comments UA COLOR (test code = COLU) YELLOW YELLOW UA APPEARANCE (test code = CLEAR CLEAR APPU) UA GLUCOSE DIPSTICK (test code NORMAL MG/DL NORMAL = DGLUU) UA BILIRUBIN DIPSTICK (test NEGATIVE MG/DL NEGATIVE code = BILU) UA KETONE DIPSTICK (test code NEGATIVE MG/DL NEGATIVE = KETU) UA SPECIFIC GRAVITY (test code 1.015 1.003-1.030 N = SGU) UA BLOOD DIPSTICK (test code = 50 Art/mm3 NEGATIVE A ARLENE) UA PH DIPSTICK (test code = 7.0 5.0-9.0 N BREE) UA PROTEIN DIPSTICK (test code NEGATIVE MG/DL NEGATIVE = PROU) UA UROBILINIOGEN DIPSTICK 4 MG/DL NORMAL A (test code = URO) UA NITRITE DIPSTICK (test code NEGATIVE NEGATIVE = ABEL) UA LEUKOCYTE ESTERASE DIPSTICK 100 /mm3 NEGATIVE A (test code = LEUU) UA CULTURE NEEDED? (test code Criteria Culture Chk = UACULT) SOURCE OF URINE: CLEAN CATCHUA [id number] 18:27:00 Test Item Value Reference Range Interpretation Comments UA RBC (test code = RBCU) RBC/HPF 0-3 UA WBC (test code = XWBCU) WBC/HPF 0-5 UA EPITHELIAL CELLS (test code = EPI/HPF FEW EPIU) UA BACTERIA (test code = XBACU) NONE SOURCE OF URINE: CLEAN CATCHURINALYSIS [id number] 18:27:00 Test Item Value Reference Range Interpretation Comments UA COLOR (test code = COLU) YELLOW YELLOW UA APPEARANCE (test code = CLEAR CLEAR APPU) UA GLUCOSE DIPSTICK (test code NORMAL MG/DL NORMAL = DGLUU) UA BILIRUBIN DIPSTICK (test NEGATIVE MG/DL NEGATIVE code = BILU) UA KETONE DIPSTICK (test code NEGATIVE MG/DL NEGATIVE = KETU) UA SPECIFIC GRAVITY (test code 1.015 1.003-1.030 N = SGU) UA BLOOD DIPSTICK (test code = 50 Art/mm3 NEGATIVE A ARLENE) UA PH DIPSTICK (test code = 7.0 5.0-9.0 N BREE) UA PROTEIN DIPSTICK (test code NEGATIVE MG/DL NEGATIVE = PROU) UA UROBILINIOGEN DIPSTICK 4 MG/DL NORMAL A (test code = URO) UA NITRITE DIPSTICK (test code NEGATIVE NEGATIVE = ABEL) UA LEUKOCYTE ESTERASE DIPSTICK 100 /mm3 NEGATIVE A (test code = LEUU) UA CULTURE NEEDED? (test code Criteria Culture Chk = UACULT) SOURCE OF URINE: CLEAN CATCHUA [id number] 18:27:00 Test Item Value Reference Range Interpretation Comments UA RBC (test code = RBCU) RBC/HPF 0-3 UA WBC (test code = XWBCU) WBC/HPF 0-5 UA EPITHELIAL CELLS (test code = EPI/HPF FEW EPIU) UA BACTERIA (test code = XBACU) NONE SOURCE OF URINE: CLEAN CATCHCBC W/O [id number] 18:25:00 Test Item Value Reference Range Interpretation Comments WHITE BLOOD CELL (test code = 8.4 K/MM3 3.8-9.8 N WBC) RED BLOOD CELL (test code = 5.01 M/MM3 3.58-4.97 H RBC) HEMOGLOBIN (test code = HGB) 10.9 G/DL 11.2-14.9 L HEMATOCRIT (test code = HCT) 34.6 % 33.2-43.5 N MEAN CELL VOLUME (test code = 69 fL 80.7-99.1 L MCV) MEAN CELL HGB (test code = MCH) 21.8 pg 27.0-34.1 L MEAN CELL HGB CONCETRATION 31.5 % 32.2-35.7 L (test code = MCHC) RED CELL DISTRIBUTION WIDTH 17.2 % 12.1-15.2 H (test code = RDW) PLATELET COUNT (test code = 338 K/MM3 129-368 N PLT) NEUTROPHIL # (test code = NT#) 2.86 K/mm3 2.0-7.6 N IMMATURE GRANULOCYTE # (test 0.02 x10 3/uL 0-0.03 N code = IG#) LYMPHOCYTE # (test code = LY#) 4.77 K/mm3 1.0-3.8 H MONOCYTE # (test code = MO#) 0.59 K/mm3 0.1-0.8 N EOSINOPHIL # (test code = EO#) 0.11 K/mm3 0.0-0.2 N BASOPHIL # (test code = BA#) 0.05 K/mm3 0.0-0.2 N NUCLEATED RBC # (test code = 0.00 K/mm3 0.0-0.1 N NRBC#) DIFFERENTIAL [id number] 18:25:00 Test Item Value Reference Range Interpretation Comments RBC MORPHOLOGY REQUIRED (test code = RBCM) PLATELET ESTIMATE (test code = PLTEST) ADEQUATE PLATELET MORPHOLOGY (test code = NORMAL PLTMORPH) CBC W/O [id number] 18:25:00 Test Item Value Reference Range Interpretation Comments WHITE BLOOD CELL (test code = 8.4 K/MM3 3.8-9.8 N WBC) RED BLOOD CELL (test code = 5.01 M/MM3 3.58-4.97 H RBC) HEMOGLOBIN (test code = HGB) 10.9 G/DL 11.2-14.9 L HEMATOCRIT (test code = HCT) 34.6 % 33.2-43.5 N MEAN CELL VOLUME (test code = 69 fL 80.7-99.1 L MCV) MEAN CELL HGB (test code = MCH) 21.8 pg 27.0-34.1 L MEAN CELL HGB CONCETRATION 31.5 % 32.2-35.7 L (test code = MCHC) RED CELL DISTRIBUTION WIDTH 17.2 % 12.1-15.2 H (test code = RDW) PLATELET COUNT (test code = 338 K/MM3 129-368 N PLT) NEUTROPHIL # (test code = NT#) 2.86 K/mm3 2.0-7.6 N IMMATURE GRANULOCYTE # (test 0.02 x10 3/uL 0-0.03 N code = IG#) LYMPHOCYTE # (test code = LY#) 4.77 K/mm3 1.0-3.8 H MONOCYTE # (test code = MO#) 0.59 K/mm3 0.1-0.8 N EOSINOPHIL # (test code = EO#) 0.11 K/mm3 0.0-0.2 N BASOPHIL # (test code = BA#) 0.05 K/mm3 0.0-0.2 N NUCLEATED RBC # (test code = 0.00 K/mm3 0.0-0.1 N NRBC#) DIFFERENTIAL [id number] 18:25:00 Test Item Value Reference Range Interpretation Comments RBC MORPHOLOGY REQUIRED (test code = RBCM) PLATELET ESTIMATE (test code = PLTEST) ADEQUATE PLATELET MORPHOLOGY (test code = NORMAL PLTMORPH)
[2020-08-23 01:16] LABS: Protime INR 1.2
[2020-08-23 01:17] LABS: Absolute Lymphocytes (CBC) 5.1 K/uL (0.7-4.9); Hematocrit 41.2 % (36.0-45.0); Lymphocytes % 44.1 % (15.3-44.8); MPV 7.5 fL (7.6-11.3); RBC Red Blood Cell Count 6.36 M/uL (3.86-4.86)
[2020-08-23 01:24] LABS: ALT/SGPT 89 U/L (12-78); AST/SGOT 39 U/L (15-37); Albumin 4.4 g/dL (3.4-5.0); Alkaline Phosphatase 94 U/L (45-117); BUN Blood Urea Nitrogen 6 mg/dL (7-18); Bicarbonate 30 mmol/L (21-32); Bilirubin Direct 0.1 mg/dL (0-0.2); Bilirubin Total 0.6 mg/dL (0.2-1.0); Glucose Level 89 mg/dL (74-106); Magnesium 2.2 mg/dL (1.8-2.4); NT PRO-BNP 138 pg/mL (<125); Potassium 3.5 mmol/L (3.5-5.1); Protein, Total 8.3 g/dL (6.4-8.2); Sodium Level 136 mmol/L (136-145); Troponin (Emerg Dept Use Only) < 0.02 ng/mL (0.0-0.045)
--- NOTE | 2020-08-23 01:40 | ER ---
Nurse's Notes [facility] Name: Karsten Zamora Age: 30 yrs Sex: Female : 1990 Arrival Date: 08/22/2020 Time: 21:30 Bed 23 Private MD: Diagnosis: Essential (primary) hypertension;Urinary tract infection, site not specified Presentation: 08/22 21:38 Chief complaint: Patient states: HTN and GURROLA for 2 days. + nausea. Coronavirus screen: ll1 Client denies travel out of the [place] in the last 14 days. At this time, the client does not indicate any symptoms associated with coronavirus-19. Ebola Screen: Patient denies travel to an Ebola-affected area in the 21 days before illness onset. Initial Sepsis Screen: Does the patient meet any 2 criteria? No. Patient's initial sepsis screen is negative. Does the patient have a suspected source of infection? Yes: Other: GURROLA. Risk Assessment: Do you want to hurt yourself or someone else? Patient reports no desire to harm self or others. Onset of symptoms was August 21, 2020. 21:38 Method Of Arrival: Ambulatory [facility] 21:38 Acuity: JOSE 3 ll1 [employer] CHAIR: 08/23 01:19 LMP 08/08/2020 sf Historical: - Allergies: 08/22 21:40 No Known Allergies; ll1 - Home Meds: 08/23 01:19 hydrochlorothiazide 25 mg oral tab 1 tab once daily [Active]; amlodipine 10 mg tab 1 sf tab once daily [Active]; - PMHx: 08/22 21:40 Hypertension; ll1 - PSHx: 21:40 None; ll1 - Immunization history:: Flu vaccine is up to date. - Social history:: Smoking status: Patient reports the use of cigarette tobacco products, smokes one-half pack cigarettes per day, Patient uses alcohol, occasionally. street drugs, marijuana. Screenin/09 01:19 Abuse screen: Denies threats or abuse. Denies injuries from another. Nutritional sf screening: No deficits noted. Tuberculosis screening: No symptoms or risk factors identified. Never had TB. Possible symptoms: None Risk factors: None. Fall Risk None identified. No fall in past 12 months (0 pts). IV access (20 points). Total Lamas Fall Scale indicates No Risk (0-24 pts). Assessment: 08/22 22:57 Reassessment: Patient is alert, oriented x 3, equal unlabored respirations, skin bb warm/dry/pink. pt instructed on wait time. 08/23 01:16 General: Appears in no apparent distress. comfortable, Behavior is calm, cooperative, sf appropriate for age. Pain: Complains of pain in head Pain currently is 4 out of 10 on a pain scale. Neuro: Level of Consciousness is awake, alert, Oriented to person, place, time, situation, Appropriate for age Reports headache in entire photophobia Denies weakness blurred vision dizziness, difficulty swallowing, paresthesias numbness. Cardiovascular: No deficits noted. Patient's skin is warm and dry. Respiratory: No deficits noted. Airway is patent Respiratory effort is even, unlabored, Respiratory pattern is regular, symmetrical. Vital Signs: 08/22 21:38 BP 157 / 117; Pulse 89; Resp 18; Temp 97.6; Pulse Ox 100% ; Weight 77.11 kg; Height 5 ll1 ft. 6 in. (167.64 cm); Pain 6/10; 22:58 BP 145 / 103; Pulse 84; Resp 16 S; Pulse Ox 100% on R/A; bb 08/23 01:19 BP 129 / 95; Pulse 77; Resp 16; Pulse Ox 100% ; sf 01:52 BP 122 / 75; Pulse 72; Resp 16; Pulse Ox 100% ; sf 02:00 BP 113 / 77; Pulse 72; Resp 16; Pulse Ox 100% ; sf 03 21:38 Body Mass Index 27.44 (77.11 kg, 167.64 cm) ll1 [place] Coma Score: 01:36 Eye Response: spontaneous(4). Verbal Response: oriented(5). Motor Response: obeys toñito commands(6). Total: 15. ED Course: 08/22 21:30 Patient arrived in ED. cl3 21:40 Triage completed. ll1 21:40 Arm band placed on. ll1 08/23 00:36 Thor Thornton MD is Attending Physician. toñito 00:57 Inserted saline lock: 22 gauge in right antecubital area, using aseptic technique. ar5 Blood collected. 01:01 XRAY Chest (1 view) In Process Unspecified. EDMS 01:09 Jose R Macario RN is Primary Nurse. sf 01:19 Patient has correct armband on for positive identification. Bed in low position. Call sf light in reach. Side rails up X 1. Pulse ox on. NIBP on. Door closed. Noise minimized. Visitors limited. Lights dimmed. Verbal reassurance given. 01:21 CT Head Brain wo Cont Sent. sf 01:38 CT Head Brain wo Cont In Process Unspecified. EDWY 01:38 Suleman Vazquez MD is Referral Physician. toñito 01:54 No provider procedures requiring assistance completed. sf 02:23 IV discontinued, intact, bleeding controlled, No redness/swelling at site. Pressure sf dressing applied. Administered Medications: 01:51 Not Given (Patient up for discharge before given): NS 0.9% 1000 ml IV at 75 ml/hr sf continuous Outcome: 01:39 Discharge ordered by . toñito 02:23 Discharged to home ambulatory. sf 02:23 Condition: stable 02:23 Discharge instructions given to patient, Instructed on discharge instructions, follow up and referral plans. medication usage, Demonstrated understanding of instructions, follow-up care, medications. 02:23 Patient left the ED. sf Signatures: Dispatcher [employer] EDWY Thor Thornton MD MD cha Ballard, Brenda, RN RN Lisa Huerta ar5 Maria Mares cl3 Julio Mares RN RN ll1 Jose R Macario RN RN sf
--- NOTE | 2020-08-23 01:40 | EDPHYS ---
Physician Documentation [facility] Name: Karsten Zamora Age: 30 yrs Sex: Female : 1990 Arrival Date: 08/22/2020 Time: 21:30 Bed 23 Private MD: KATIE Physician Thor Thornton HPI: 08/23 01:32 This 30 yrs old Black Female presents to ER via Ambulatory with complaints of High toñito Blood Pressure. 01:32 The patient has elevated blood pressure and discovered this at home. Onset: The toñito symptoms/episode began/occurred today. Modifying factors: The symptoms are aggravated by activity, The symptoms are alleviated by remaining still. Associated signs and symptoms: Pertinent positives: headache. Severity of symptoms: At its worst the blood pressure was mild, in the emergency department the blood pressure is unchanged. The patient has experienced similar episodes in the past, several times. 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 - Social history:: Smoking status: Patient reports the use of cigarette tobacco products, smokes one-half pack cigarettes per day, Patient uses alcohol, occasionally. street drugs, marijuana. ROS: 08/23 01:34 Constitutional: Negative for fever, chills, and weight loss, Eyes: Negative for injury, toñito pain, redness, and discharge, ENT: Negative for injury, pain, and discharge, Neck: Negative for injury, pain, and swelling, Cardiovascular: Negative for chest pain, palpitations, and edema, Respiratory: Negative for shortness of breath, cough, wheezing, and pleuritic chest pain, Abdomen/GI: Negative for abdominal pain, nausea, vomiting, diarrhea, and constipation, Back: Negative for injury and pain, : Negative for injury, bleeding, discharge, and swelling, MS/Extremity: Negative for injury and deformity, Skin: Negative for injury, rash, and discoloration, Psych: Negative for depression, anxiety, suicide ideation, homicidal ideation, and hallucinations, Allergy/Immunology: Negative for hives, rash, and allergies, Endocrine: Negative for neck swelling, polydipsia, polyuria, polyphagia, and marked weight changes, Hematologic/Lymphatic: Negative for swollen nodes, abnormal bleeding, and unusual bruising. Neuro: Positive for headache. Exam: 01:34 Constitutional: This is a well developed, well nourished patient who is awake, alert, toñito and in no acute distress. Head/Face: Normocephalic, atraumatic. Eyes: Pupils equal round and reactive to light, extra-ocular motions intact. Lids and lashes normal. Conjunctiva and sclera are non-icteric and not injected. Cornea within normal limits. Periorbital areas with no swelling, redness, or edema. ENT: Nares patent. No nasal discharge, no septal abnormalities noted. Tympanic membranes are normal and external auditory canals are clear. Oropharynx with no redness, swelling, or masses, exudates, or evidence of obstruction, uvula midline. Mucous membranes moist. Neck: Trachea midline, no thyromegaly or masses palpated, and no cervical lymphadenopathy. Supple, full range of motion without nuchal rigidity, or vertebral point tenderness. No Meningismus. Chest/axilla: Normal chest wall appearance and motion. Nontender with no deformity. No lesions are appreciated. Cardiovascular: Regular rate and rhythm with a normal S1 and S2. No gallops, murmurs, or rubs. Normal PMI, no JVD. No pulse deficits. Respiratory: Lungs have equal breath sounds bilaterally, clear to auscultation and percussion. No rales, rhonchi or wheezes noted. No increased work of breathing, no retractions or nasal flaring. Abdomen/GI: Soft, non-tender, with normal bowel sounds. No distension or tympany. No guarding or rebound. No evidence of tenderness throughout. Back: No spinal tenderness. No costovertebral tenderness. Full range of motion. Female : Normal external genitalia. Skin: Warm, dry with normal turgor. Normal color with no rashes, no lesions, and no evidence of cellulitis. MS/ Extremity: Pulses equal, no cyanosis. Neurovascular intact. Full, normal range of motion. Neuro: Awake and alert, GCS 15, oriented to person, place, time, and situation. Cranial nerves II-XII grossly intact. Motor strength 5/5 in all extremities. Sensory grossly intact. Cerebellar exam normal. Normal gait. Psych: Awake, alert, with orientation to person, place and time. Behavior, mood, and affect are within normal limits. 01:34 Neck: External neck: no acute changes, Thyroid: appears normal, Trachea: is midline with no obvious abnormalities, no acute changes, ROM/movement: is normal, no acute changes, Lymph nodes: no appreciated lymphadenopathy. Vital Signs: 08/22 21:38 BP 157 / 117; Pulse 89; Resp 18; Temp 97.6; Pulse Ox 100% ; Weight 77.11 kg; Height 5 ll1 ft. 6 in. (167.64 cm); Pain 6/10; 22:58 BP 145 / 103; Pulse 84; Resp 16 S; Pulse Ox 100% on R/A; bb 08/23 01:19 BP 129 / 95; Pulse 77; Resp 16; Pulse Ox 100% ; sf 01:52 BP 122 / 75; Pulse 72; Resp 16; Pulse Ox 100% ; sf 02:00 BP 113 / 77; Pulse 72; Resp 16; Pulse Ox 100% ; sf 08/22 21:38 Body Mass Index 27.44 (77.11 kg, 167.64 cm) ll1 [place]ne Coma Score: 01:36 Eye Response: spontaneous(4). Verbal Response: oriented(5). Motor Response: obeys toñito commands(6). Total: 15. MDM: 00:36 Patient medically screened. toñito 01:36 Differential diagnosis: hypertensive crisis, Malignant HTN, CVA. Data reviewed: vital toñito signs, nurses notes, lab test result(s), EKG, radiologic studies, CT scan, plain films. Data interpreted: monitoring tech: rate is 77 beats/min, rhythm is regular. Test interpretation: by ED physician or midlevel provider: ECG. 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 08/23 00:35 Order name: Basic Metabolic Panel; Complete Time: 01:37 toñito 08/23 00:35 Order name: CBC with Diff toñito 08/23 00:35 Order name: LFT's; Complete Time: 01:37 [facility] 08/23 00:35 Order name: Magnesium; Complete Time: 01:37 [facility] 08/23 00:35 Order name: NT PRO-BNP; Complete Time: 01:37 [facility] 08/23 00:35 Order name: PT-INR; Complete Time: 01:37 [facility] 08/23 00:35 Order name: Troponin (emerg Dept Use Only); Complete Time: 01:37 [facility] 08/23 00:35 Order name: XRAY Chest (1 view) [facility] 08/23 00:35 Order name: UDS [facility] 08/23 00:35 Order name: CT Head Brain wo Cont [facility] 08/23 00:56 Order name: Urine Dipstick--Ancillary (enter results) [facility] 08/23 00:56 Order name: Urine --Ancillary (enter results) [facility] 08/23 01:23 Order name: CBC Smear Scan EDFL 08/23 00:35 Order name: EKG; Complete Time: 00:36 [facility] 08/23 00:35 Order name: Cardiac monitoring; Complete Time: 00:56 [facility] 08/23 00:35 Order name: EKG - Nurse/Tech; Complete Time: 01:10 [facility] 08/23 00:35 Order name: IV Saline Lock; Complete Time: 00:56 [facility] 08/23 00:35 Order name: Labs collected and sent; Complete Time: 00:56 [facility] 08/23 00:35 Order name: O2 Per Protocol; Complete Time: 00:56 [facility] 08/23 00:35 Order name: O2 Sat Monitoring; Complete Time: 00:56 [facility] 08/23 00:35 Order name: Urine Dipstick-Ancillary (obtain specimen); Complete Time: 00:55 [facility] 08/23 00:35 Order name: Urine Test (obtain specimen); Complete Time: 00:55 [facility] Administered Medications: 01:51 Not Given (Patient up for discharge before given): NS 0.9% 1000 ml IV at 75 ml/hr sf continuous Disposition: 08/23/20 01:39 Discharged to Home. Impression: Essential (primary) hypertension, Urinary tract infection, site not specified. - Condition is Stable. - Discharge Instructions: Hypertension, Urinary Tract Infection, Adult, Urinary Tract Infection, Adult, Ypmv-or-Ssty, Hypertension, Idwd-le-Dcdk, Hypokalemia. - Prescriptions for Norvasc 10 mg Oral Tablet - take 1 tablet by ORAL route once daily; 30 tablet. Hydrochlorothiazide 25 mg Oral Tablet - take 1 tablet by ORAL route once daily .; 30 tablet. Macrobid 100 mg Oral Capsule - take 1 capsule by ORAL route every 12 hours for 7 days; 14 capsule. - Medication Reconciliation Form, Thank You Letter, Antibiotic Education, Prescription Opioid Use form. - Follow up: Private Physician; When: 2 - 3 days; Reason: Recheck today's complaints, Continuance of care, Re-evaluation by your physician. Follow up: Suleman Vazquez MD; When: 2 - 3 days; Reason: Recheck today's complaints, Re-evaluation by your physician. - Problem is new. - Symptoms have improved. Signatures: Dispatcher [employer] EDMS Thor Thornton MD MD cha Lewis, Lynsay, RN RN ll1 Jose R Macario RN RN sf Corrections: (The following items were deleted from the chart) 02:23 01:39 08/23/2020 01:39 Discharged to Home. Impression: Essential (primary) sf hypertension; Urinary tract infection, site not specified. Condition is Stable. Forms are Medication Reconciliation Form, Thank You Letter, Antibiotic Education, Prescription Opioid Use. Follow up: Private Physician; When: 2 - 3 days; Reason: Recheck today's complaints, Continuance of care, Re-evaluation by your physician. Follow up: Suleman Vazquez; When: 2 - 3 days; Reason: Recheck today's complaints, Re-evaluation by your physician. Problem is new. Symptoms have improved. toñito
[2020-08-23 01:50] LABS: Barbiturates NEGATIVE (NEGATIVE); Benzodiazepines NEGATIVE (NEGATIVE); Cocaine NEGATIVE (NEGATIVE); METHAMPHETAM NEGATIVE (NEGATIVE); Methadone NEGATIVE (NEGATIVE); Opiates NEGATIVE (NEGATIVE); Phencyclidine NEGATIVE (NEGATIVE); THC Cannibis POSITIVE (NEGATIVE)
[2020-08-23 02:12] LABS: Urine Blood 2+ (NEG); Urine Glucose NEGATIVE (NEG); Urine Protein NEGATIVE (NEG); Urine Specific Gravity 1.025 (1.005-1.030); Urine pH 5.5 (5.0-7.0)
[2020-08-23 02:24] LABS: Blood Morphology Comment NOTED (NOT SEEN); Hypochromasia 2+; Platelet Estimate ADEQ; Polychromasia SLIGHT; Target Cells 2+; White Blood Cell Scan OK (OK)
[2020-08-23 02:56] VITALS: TEMP 97.6; O2SAT 100
[2020-08-23 03:03] VITALS: BP 113/77
--- NOTE | 2020-08-23 07:50 | RAD REPORT ---
EXAM DESCRIPTION: Pradeep Single View08/23/2020 1:01 am CLINICAL HISTORY: Cough COMPARISON: 2019 FINDINGS: The lungs appear clear of acute infiltrate. The heart is normal size IMPRESSION: No acute abnormalities displayed
--- NOTE | 2020-08-23 10:56 | RAD REPORT ---
EXAM DESCRIPTION: CT - Head Brain Wo Cont - 08/23/2020 6:53 am CLINICAL HISTORY: The patient is 30 years old and is Female; Headache;Dizziness TECHNIQUE: Axial computed tomography images of the head/brain without intravenous contrast. Sagitt al and coronal reformatted images were created and reviewed. This CT exam was performed using one o r more of the following dose reduction techniques: automated exposure control, adjustment of the mA and/or kV according to patient size, and/or use of iterative reconstruction technique. COMPARISON: CT head 08/27/2019. FINDINGS: Brain: Unremarkable. No hemorrhage. No significant white matter disease. No edema. Ventricles: Unremarkable. No ventriculomegaly. Bones/joints: Unremarkable. No acute fracture. Soft tissues: Unremarkable. Sinuses: Unremarkable as visualized. Mastoid air cells: Unremarkable as visualized. No mastoid effusion. IMPRESSION: No acute intracranial abnormality. Electronically signed by: Jacoby Martinez MD 08/23/2020 1:45 AM SUPERVISOR DEHYDROGENATION Due to temporary technical issues with the PACS/Fluency reporting system, reports are being signed by the in house radiologist without review as a courtesy to ensure prompt reporting. The interpreting r adiologist is fully responsible for the content of the report.
--- NOTE | 2020-08-24 05:05 | EKG ---
Test Date: 2020-08-23 Test Time: 01:07:47 Pony Edger: URMILA MEASUREMENT RESULTS: Intervals: Rate: 69 AL: 138 QRSD: 88 QT: 402 QTc: 430 [place]: P: 8 AL: 138 QRS: 31 T: 28 INTERPRETIVE STATEMENTS: Normal sinus rhythm Cannot rule out Anterior infarct, age undetermined Abnormal ECG Compared to ECG 08/28/2019 01:10:50 Myocardial infarct finding now present Electronically Signed On 08-24-20 05:03:44 ACCOUNT DEVELOPMENT SPECIALIST by Suleman Vazquez
== END 2020-08-23 02:23 | disposition home or self-care (01) ==
LOC: ER 21:30
DX: I10 Essential (primary) hypertension (principal); N39.0 Urinary tract infection, site not specified; F17.210 Nicotine dependence, cigarettes, uncomplicated
CPT/HCPCS: 36415; 70450; 71045; 80048; 80076; 80307; 81003; 81025; 83735; 83880; 84484; 85025; 85610; 93005; 99284

== ENCOUNTER 2021-06-02 20:24 | Emergency (ER) | payer SELFPAY, OTHER ==
--- OUTSIDE RECORDS SUMMARY | 2021-06-02 20:28 | XMS REPORT | Continuity of Care Document ---
:[address] [facility] t Address [address] [place] [address] Care Team Providers Name Role Phone Unavailable Unavailable Unavailable Payers Payer Name Policy Type Policy Number Effective Date Expiration Date S ource Problems This patient has no known problems. Allergies, Adverse Reactions, Alerts Allergy Allergy Status Severity Reaction(s) Onset Inactive Treating Comm ents Source Name Type Date Date Clinician No Known DA Active [facility] Allergie 01-27 [place] 00:00: [address] Medications This patient has no known [...] = NRBC#) 0.00 K/mm3 0.0-0.1 N DIFFERENTIAL [id number] 19:05:00 Test Item Value Reference Range Interpretation [...] code = NORMAL NORMAL PLTMORPH) BASIC METABOLIC [id number] 18:42:00 Test Item Value Reference Range Interpretation [...] 9.2 MG/DL 8.4-10.2 N CA) HEPATIC FUNCTION [id number] 18:42:00 Test Item Value Reference Range Interpretation [...] code = 85 UNITS/L 38-126 N ALKP) [id number] 18:42:00 Test Item Value Reference Range Interpretation Comments LIPASE (test code = LIP) 109 UNITS/L 23-300 N HCG SERUM [id number] 18:42:00 Test Item Value Reference Range Interpretation Comments HCG SERUM QUAL (test code = HCGQL) NEGATIVE NEGATIVE A BASIC METABOLIC [id number] 18:40:00 Test Item Value Reference Range Interpretation [...] 9.2 MG/DL 8.4-10.2 N CA) HEPATIC FUNCTION [id number] 18:40:00 Test Item Value Reference Range Interpretation [...] code = 85 UNITS/L 38-126 N ALKP) [id number] 18:40:00 Test Item Value Reference Range Interpretation Comments LIPASE (test code = LIP) 109 UNITS/L 23-300 N HCG SERUM [id number] 18:40:00 Test Item Value Reference Range Interpretation Comments HCG SERUM QUAL (test code = HCGQL) NEGATIVE BASIC METABOLIC [id number] 18:39:00 Test Item Value Reference Range Interpretation [...] code = MG/DL 8.7-9.7 CA) HEPATIC FUNCTION [id number] 18:39:00 Test Item Value Reference Range Interpretation [...] code = 85 UNITS/L 38-126 N ALKP) [id number] 18:39:00 Test Item Value Reference Range Interpretation Comments LIPASE (test code = LIP) UNITS/L 23-300 HCG SERUM [id number] 18:39:00 Test Item Value Reference Range Interpretation Comments HCG SERUM QUAL (test code = HCGQL) NEGATIVE BASIC METABOLIC [id number] 18:37:00 Test Item Value Reference Range Interpretation [...] code = CA) MG/DL 8.7-9.7 HEPATIC FUNCTION [id number] 18:37:00 Test Item Value Reference Range Interpretation Comments TOTAL PROTEIN (test code = PROT) G/DL 6.3-8.2 ALBUMIN (test code = ALB) 4.2 G/DL 3.5-5.0 N BILIRUBIN TOTAL (test code = BILT) MG/DL 0.2-1.3 BILIRUBIN DIRECT (test code = BILD) MG/DL 0.0-0.3 SGOT/AST (test code = AST) UNITS/L 15-37 SGPT/ALT (test code = ALT) UNITS/L 9-52 ALKALINE PHOSPHATASE (test code = UNITS/L 38-126 ALKP) [id number] 18:37:00 Test Item Value Reference Range Interpretation Comments LIPASE (test code = LIP) UNITS/L 23-300 HCG SERUM [id number] 18:37:00 Test Item Value Reference Range Interpretation Comments HCG SERUM QUAL (test code = HCGQL) NEGATIVE BASIC METABOLIC [id number] 18:36:00 Test Item Value Reference Range Interpretation [...] code = CA) MG/DL 8.7-9.7 HEPATIC FUNCTION [id number] 18:36:00 Test Item Value Reference Range Interpretation Comments TOTAL PROTEIN (test code = PROT) G/DL 6.3-8.2 ALBUMIN (test code = ALB) 4.2 G/DL 3.5-5.0 N BILIRUBIN TOTAL (test code = BILT) MG/DL 0.2-1.3 BILIRUBIN DIRECT (test code = BILD) MG/DL 0.0-0.3 SGOT/AST (test code = AST) UNITS/L 15-37 SGPT/ALT (test code = ALT) UNITS/L 9-52 ALKALINE PHOSPHATASE (test code = UNITS/L 38-126 ALKP) [id number] 18:36:00 Test Item Value Reference Range Interpretation Comments LIPASE (test code = LIP) UNITS/L 23-300 HCG SERUM [id number] 18:36:00 Test Item Value Reference Range Interpretation Comments HCG SERUM QUAL (test code = HCGQL) NEGATIVE URINALYSIS [id number] 18:33:00 Test Item Value Reference Range Interpretation Comments UA COLOR (test code = YELLOW YELLOW COLU) UA APPEARANCE (test SLIGHT CLOUDY CLEAR Previou sly code = APPU) reported result : CLEAR Edited by : ERI on 02/26/19:303611 /08/05: APPEARANCE previously reported as: CLEAR UA [...] UACULT) Criteria SOURCE OF URINE: CLEAN CATCHUA [id number] 18:33:00 Test Item Value Reference Range Interpretation Comments UA RBC (test code = RBCU) 3-5 RBC/HPF 0-3 A UA WBC (test code = XWBCU) 3-5 WBC/HPF 0-5 UA EPITHELIAL CELLS (test code = FEW EPI/HPF FEW EPIU) UA BACTERIA (test code = XBACU) FEW NONE UA AMORPHOUS SEDIMENT (test code FEW NONE A = AMORU) SOURCE OF URINE: CLEAN CATCHURINALYSIS [id number] 18:27:00 Test Item Value Reference Range Interpretation [...] = UACULT) SOURCE OF URINE: CLEAN CATCHUA [id number] 18:27:00 Test Item Value Reference Range Interpretation Comments UA RBC (test code = RBCU) RBC/HPF 0-3 UA WBC (test code = XWBCU) WBC/HPF 0-5 UA EPITHELIAL CELLS (test code = EPI/HPF FEW EPIU) UA BACTERIA (test code = XBACU) NONE SOURCE OF URINE: CLEAN CATCHURINALYSIS [id number] 18:27:00 Test Item Value Reference Range Interpretation [...] = UACULT) SOURCE OF URINE: CLEAN CATCHUA [id number] 18:27:00 Test Item Value Reference Range Interpretation Comments UA RBC (test code = RBCU) RBC/HPF 0-3 UA WBC (test code = XWBCU) WBC/HPF 0-5 UA EPITHELIAL CELLS (test code = EPI/HPF FEW EPIU) UA BACTERIA (test code = XBACU) NONE SOURCE OF URINE: CLEAN CATCHCBC W/O [id number] 18:25:00 Test Item Value Reference Range Interpretation [...] = 0.00 K/mm3 0.0-0.1 N NRBC#) DIFFERENTIAL [id number] 18:25:00 Test Item Value Reference Range Interpretation Comments RBC MORPHOLOGY REQUIRED (test code = RBCM) PLATELET ESTIMATE (test code = PLTEST) ADEQUATE PLATELET MORPHOLOGY (test code = NORMAL PLTMORPH) CBC W/O [id number] 18:25:00 Test Item Value Reference Range Interpretation [...] = 0.00 K/mm3 0.0-0.1 N NRBC#) DIFFERENTIAL [id number] 18:25:00 Test Item Value Reference Range Interpretation Comments RBC MORPHOLOGY REQUIRED (test code = RBCM) PLATELET ESTIMATE (test code = PLTEST) ADEQUATE PLATELET MORPHOLOGY (test code = NORMAL PLTMORPH)
[2021-06-03 01:02] LABS: Urine Blood Negative (Negative); Urine Glucose Negative (Negative); Urine Protein Negative (Negative); Urine Specific Gravity 1.025 (1.005-1.030); Urine pH 5.5 (5.0-7.0)
[2021-06-03 01:13] LABS: Absolute Lymphocytes (CBC) 1.8 K/uL (0.7-4.9); Basophils % 0.5 % (0-1.3); Hematocrit 39.4 % (36.0-45.0); Lymphocytes % 36.1 % (15.3-44.8); MPV 7.7 fL (7.6-11.3); RBC Red Blood Cell Count 6.16 M/uL (3.86-4.86)
[2021-06-03] MEDS ORDERED: MORPHINE 4 MG/ML SYR ONE (01:13)
[2021-06-03] MEDS ORDERED: ONDANSETRON 4 MG/2 ML VIAL ONE (01:14)
[2021-06-03] MEDS ORDERED: NA CHLORIDE 0.9% 1,000 ML ONE (01:14)
[2021-06-03] MEDS ORDERED: FAMOTIDINE 20 MG/2 ML VIAL IV ONE (01:14)
[2021-06-03 01:15] LABS: Urine Blood 2+ (Negative); Urine Glucose Negative (Negative); Urine Protein 2+ (Negative); Urine Specific Gravity >=1.030 (1.005-1.030); Urine pH 5.5 (5.0-7.0)
[2021-06-03 01:33] LABS: ALT/SGPT 23 U/L (12-78); AST/SGOT 17 U/L (15-37); Alkaline Phosphatase 89 U/L (45-117); BUN Blood Urea Nitrogen 9 mg/dL (7-18); Bicarbonate 23 mmol/L (21-32); Bilirubin Direct 0.1 mg/dL (0-0.2); Bilirubin Total 0.4 mg/dL (0.2-1.0); Glucose Level 114 mg/dL (74-106); Lipase 81 U/L (73-393); Potassium 3.1 mmol/L (3.5-5.1); Protein, Total 8.4 g/dL (6.4-8.2); Sodium Level 136 mmol/L (136-145)
[2021-06-03 01:38] LABS: Anisocytosis 1+; Blood Morphology Comment NOTED (NOT SEEN); Hypochromasia 1+; Macrocytosis 1+; Platelet Estimate ADEQ; White Blood Cell Scan OK (OK)
[2021-06-03] MEDS ORDERED: CIPROFLOXACIN HCL 500 MG TAB ONE (03:25)
[2021-06-03] MEDS ORDERED: POTASSIUM 25 MEQ EFFERV TAB ONE (03:25)
--- NOTE | 2021-06-03 03:43 | ER ---
Nurse's Notes [facility] Name: Karsten Zamora Age: 30 yrs Sex: Female : 1990 Arrival Date: 06/02/2021 Time: 20:30 Bed 15 Private MD: Diagnosis: Nausea with vomiting, unspecified;Diarrhea, unspecified;Hypokalemia Presentation: 06/02 21:35 Chief complaint: Patient states: she ate seafood Saturday night and about 10 minutes bb afterwards started feeling sick, vomiting, diarrhea, chills, headache, feeling weak, and has abdominal pain. Coronavirus screen: headache, vomiting. Client presents with at least one sign or symptom that may indicate coronavirus-19. Standard/surgical mask placed on the client. Ebola Screen: No symptoms or risks identified at this time. Initial Sepsis Screen: Does the patient meet any 2 criteria? No. Patient's initial sepsis screen is negative. Does the patient have a suspected source of infection? No. Patient's initial sepsis screen is negative. Risk Assessment: Do you want to hurt yourself or someone else? Patient reports no desire to harm self or others. Onset of symptoms was May 30, 2021. 21:35 Method Of Arrival: Ambulatory bb 21:35 Acuity: JOSE 3 bb Triage Assessment: 21:38 General: Appears in no apparent distress. uncomfortable, Behavior is cooperative, bb anxious. Pain: Complains of pain in abdomen Pain currently is 10 out of 10 on a pain scale. Neuro: Level of Consciousness is awake, alert, obeys commands, Oriented to person, place, time, situation. Cardiovascular: Capillary refill < 3 seconds. Respiratory: Respiratory effort is even, unlabored, Respiratory pattern is regular. GI: Abdomen is round Reports lower abdominal pain, upper abdominal pain, diarrhea, nausea, vomiting. Derm: Skin is dry, Skin is normal, Skin temperature is warm. Musculoskeletal: Circulation, motion, and sensation intact. 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 - Social history:: Smoking status: Patient reports the use of cigarette tobacco products. Screenin/18 03:20 Abuse screen: Denies threats or abuse. Denies injuries from another. Nutritional lp1 screening: No deficits noted. Tuberculosis screening: No symptoms or risk factors identified. Fall Risk None identified. Assessment: 03:30 Reassessment: Reports slight pain still present to pelvic area of abdomen Patient lp1 states feeling better. Patient states symptoms have improved. 03:56 Reassessment: Patient unable to tolerate full amount of potassium medication. lp1 03:56 General: Appears in no apparent distress. comfortable, Behavior is calm. Pain: lp1 Complains of pain in right lower quadrant and left lower quadrant. Neuro: Level of Consciousness is awake, alert, obeys commands, Gait is steady. Respiratory: Respiratory effort is even, unlabored. GI: Abdomen is non-distended, Reports lower abdominal pain, decreased at this time. Derm: Skin is intact, Skin is dry, Skin is normal. Musculoskeletal: No deficits noted. Vital Signs: 06/02 21:35 BP 123 / 87; Pulse 101; Resp 18 S; Temp 99.5(O); Pulse Ox 100% on R/A; Weight 95.25 kg bb (R); Height 5 ft. 6 in. (167.64 cm) (R); Pain 10/10; 06/03 03:29 BP 120 / 84; Pulse 93; Resp 18; Pulse Ox 100% on R/A; lp1 06/02 21:35 Body Mass Index 33.89 (95.25 kg, 167.64 cm) bb ED Course: 06/02 20:30 Patient arrived in ED. es 21:38 Triage completed. bb 21:38 Arm band placed on Patient placed in waiting room, Patient notified of wait time. bb 06/03 00:32 Thor Meier PA is PHCP. cp 00:32 Edwardo Santiago MD is Attending Physician. cp 01:24 SARS-COV-2 RT PCR Sent. ld1 02:05 CT Abd/Pelvis - IV Contrast Only In Process Unspecified. EDMS 03:33 Patient has correct armband on for positive identification. lp1 03:55 No provider procedures requiring assistance completed. IV discontinued, No lp1 redness/swelling at site. Pressure dressing applied. Administered Medications: 01:24 Drug: Pepcid (famotidine) 20 mg Route: IVP; Site: right antecubital; ld1 03:33 Follow up: Response: No adverse reaction lp1 01:25 Drug: NS 0.9% 1000 ml Route: IV; Rate: 1 bolus; Site: right antecubital; ld1 03:33 Follow up: IV Status: Completed infusion; IV Intake: 1000ml lp1 01:25 Drug: Zofran (Ondansetron) 4 mg Route: IVP; Site: right antecubital; ld1 03:33 Follow up: Response: Marked relief of symptoms lp1 01:25 Drug: morphine 4 mg Route: IVP; Site: right antecubital; ld1 03:33 Follow up: Response: Pain is decreased lp1 03:31 Drug: Cipro (ciprofloxacin) 500 mg Route: PO; lp1 03:31 Drug: Potassium Effervescent Tablet 50 mEq Route: PO; lp1 03:52 Not Given (Patient unable to toleratee): Potassium Effervescent Tablet 25 mEq PO once; lp1 dissolve in 4 ounces of water or juice Intake: 03:33 IV: 1000ml; Total: 1000ml. lp1 Outcome: 03:42 Discharge ordered by . cp 03:55 Discharged to home ambulatory, with friend. lp1 03:55 Condition: good 03:55 Discharge instructions given to patient, Instructed on discharge instructions, follow up and referral plans. medication usage, Demonstrated understanding of instructions, follow-up care, medications, Prescriptions given X 3. 03:57 Patient left the ED. lp1 Signatures: Dispatcher [employer] Tashia Soliman Brenda RN RN Nubia Linares RN RN lp1 Thor Meier PA PA cp Dibbern, Lauren RN RN ld1
--- NOTE | 2021-06-03 03:44 | EDPHYS ---
Physician Documentation [facility] Name: Karsten Zamora Age: 30 yrs Sex: Female : 1990 Arrival Date: 06/02/2021 Time: 20:30 Bed 15 Private MD: ED Physician Edwardo Santiago HPI: 06/03 01:00 This 30 yrs old Black Female presents to ER via Ambulatory with complaints of Food cp poisoning. 01:00 The patient presents to the emergency department with nausea, that is moderate, cp vomiting, that is continuous, diarrhea, that is continuous, abdominal pain, of the abdomen diffusely, described as achy, and does not radiate. 01:00 Onset: The symptoms/episode began/occurred 3 day(s) ago. Possible causes: bad food cp exposure, sea food. Associated signs and symptoms: Pertinent positives: abdominal pain, anorexia, diarrhea, nausea, vomiting, body aches, headache, general weakness, Pertinent negatives: fever, GI bleeding. Severity of symptoms: in the emergency department the symptoms are unchanged despite home interventions. 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 - Social history:: Smoking status: Patient reports the use of cigarette tobacco products. ROS: 06/03 01:05 Constitutional: Negative for body aches, chills, fever, poor PO intake. cp 01:05 Eyes: Negative for injury, pain, redness, and discharge. cp 01:05 Cardiovascular: Negative for chest pain, edema, palpitations. 01:05 Respiratory: Negative for cough, shortness of breath, wheezing. 01:05 Abdomen/GI: Positive for abdominal pain, nausea, vomiting, and diarrhea, anorexia, Negative for hematemesis, black/tarry stool. 01:05 : Negative for urinary symptoms. cp 01:05 Neuro: Positive for headache, weakness, Negative for altered mental status, numbness. 01:05 All other systems are negative. Exam: 01:10 Constitutional: The patient appears in no acute distress, alert, awake, non-toxic, well cp developed, well nourished. 01:10 Head/Face: Normocephalic, atraumatic. cp 01:10 Eyes: Periorbital structures: appear normal, Conjunctiva: normal, no exudate, no injection, Sclera: no appreciated abnormality, Lids and lashes: appear normal, bilaterally. 01:10 ENT: External ear(s): are unremarkable, Nose: is normal, Mouth: is normal, Posterior pharynx: Airway: no evidence of obstruction, patent. 01:10 Chest/axilla: Inspection: normal. 01:10 Cardiovascular: Rate: tachycardic, Rhythm: regular. 01:10 Respiratory: the patient does not display signs of respiratory distress, Respirations: normal, no use of accessory muscles, no retractions, labored breathing, is not present, Breath sounds: are clear throughout, no decreased breath sounds, no stridor, no wheezing. 01:10 Abdomen/GI: Inspection: abdomen appears normal, Bowel sounds: active, all quadrants, Palpation: soft, in all quadrants, moderate abdominal tenderness, in all quadrants, rebound tenderness, is not appreciated, involuntary guarding, is not appreciated. 01:10 Back: pain, is absent, ROM is normal. 01:10 Neuro: Orientation: to person, place \T\ time. Mentation: is normal, Motor: moves all fours, strength is normal, Sensation: is normal. Vital Signs: 06/02 21:35 BP 123 / 87; Pulse 101; Resp 18 S; Temp 99.5(O); Pulse Ox 100% on R/A; Weight 95.25 kg bb (R); Height 5 ft. 6 in. (167.64 cm) (R); Pain 03/26; 06/03 03:29 BP 120 / 84; Pulse 93; Resp 18; Pulse Ox 100% on R/A; lp1 06/02 21:35 Body Mass Index 33.89 (95.25 kg, 167.64 cm) bb MDM: 00:37 Patient medically screened. cp 01:00 Differential diagnosis: gastritis, appendicitis, viral gastroenteritis, cp gastroenteritis, colitis, dehydration, electrolyte abnormality. 03:40 Data reviewed: vital signs, nurses notes, lab test result(s), radiologic studies, CT cp scan. Counseling: I had a detailed discussion with the patient and/or guardian regarding: the historical points, exam findings, and any diagnostic results supporting the discharge/admit diagnosis, lab results, radiology results. Response to treatment: the patient's symptoms have markedly improved after treatment, Vital signs stable. Patient reports nausea abdominal pain markedly improved. Vomiting resolved. Discussed results of CT and labs. Will replace potassium orally and discharge to home for continued monitoring with a prescription for oral Cipro and antiemetic. 06/03 00:52 Order name: Basic Metabolic Panel; Complete Time: 02:22 ld1 06/03 02:22 Interpretation: Normal except: GLUC 114; K 3.1. cp 06/03 00:52 Order name: CBC with Diff; Complete Time: 02:22 ld1 06/03 02:23 Interpretation: Normal except: RBC 6.16; MCV 64.0; MCH 20.1; MCHC 31.4; RDW 16.2. cp 06/03 00:52 Order name: Hepatic Function; Complete Time: 02:22 ld1 06/03 02:23 Interpretation: Normal except: TP 8.4; GLOB 4.4; A/G 0.9. cp 06/03 00:52 Order name: Lipase; Complete Time: 02:22 ld1 06/03 01:02 Order name: Urine Dipstick-Ancillary; Complete Time: 02:22 EDMS 06/03 00:55 Order name: CT Abd/Pelvis - IV Contrast Only cp 06/03 01:15 Order name: Urine --Ancillary (enter results); Complete Time: 02:22 cs9 06/03 01:15 Order name: Urine Dipstick-Ancillary; Complete Time: 02:22 EDMS 06/03 02:24 Interpretation: Normal except: UBLD 2+; UKET Trace; UPROT 2+. cp 06/03 01:16 Order name: Urine Dipstick-Ancillary EDOH 06/03 01:16 Order name: SARS-COV-2 RT PCR; Complete Time: 02:22 EDMS 06/03 01:16 Order name: CBC Smear Scan; Complete Time: 02:22 EDMS 06/03 00:52 Order name: IV Saline Lock; Complete Time: 00:56 ld1 06/03 00:52 Order name: Labs collected and sent; Complete Time: 00:56 ld1 06/03 00:52 Order name: Urine Dipstick-Ancillary (obtain specimen); Complete Time: :07 ld1 06/03 00:52 Order name: Urine Test (obtain specimen); Complete Time: :07 ld1 Administered Medications: 01:24 Drug: Pepcid (famotidine) 20 mg Route: IVP; Site: right antecubital; ld1 03:33 Follow up: Response: No adverse reaction lp1 01:25 Drug: NS 0.9% 1000 ml Route: IV; Rate: 1 bolus; Site: right antecubital; ld1 03:33 Follow up: IV Status: Completed infusion; IV Intake: 1000ml lp1 01:25 Drug: Zofran (Ondansetron) 4 mg Route: IVP; Site: right antecubital; ld1 03:33 Follow up: Response: Marked relief of symptoms lp1 01:25 Drug: morphine 4 mg Route: IVP; Site: right antecubital; ld1 03:33 Follow up: Response: Pain is decreased lp1 03:31 Drug: Cipro (ciprofloxacin) 500 mg Route: PO; lp1 03:31 Drug: Potassium Effervescent Tablet 50 mEq Route: PO; lp1 03:52 Not Given (Patient unable to toleratee): Potassium Effervescent Tablet 25 mEq PO once; lp1 dissolve in 4 ounces of water or juice Disposition: 07:00 Co-signature as Attending Physician, Edwardo Santiago MD. [email or web address] Disposition Summary: 06/03/21 03:42 Discharge Ordered Location: Home cp Problem: new cp Symptoms: have improved cp Condition: Stable cp Diagnosis - Nausea with vomiting, unspecified cp - Diarrhea, unspecified cp - Hypokalemia cp Followup: cp - With: Private Physician - When: 1 - 2 days - Reason: Worsening of condition Discharge Instructions: - Discharge Summary Sheet cp - Food Choices to Help Relieve Diarrhea, Adult cp - Diarrhea, Adult cp - Nausea and Vomiting, Adult cp - Hypokalemia cp Forms: - Medication Reconciliation Form cp - Thank You Letter cp - Antibiotic Education cp - Prescription Opioid Use cp Prescriptions: - Zofran 4 mg Oral Tablet - take 1 tablet by ORAL route every 12 hours As needed; 20 tablet; Refills: 0, cp Product Selection Permitted - Cipro 500 mg Oral Tablet - take 1 tablet by ORAL route every 12 hours for 7 days; 14 tablet; Refills: 0, cp Product Selection Permitted - dicyclomine 20 mg Oral Tablet - take 1 tablet by ORAL route 4 times per day; 30 tablet; Refills: 0, Product cp Selection Permitted Signatures: Dispatcher [employer] EDCaitlin Stone RN RN bb Nubia Mortensen RN RN lp1 Thor Meier PA PA cp Edwardo Santiago MD MD mh7 Mavis Yang RN RN ld1 Corrections: (The following items were deleted from the chart) 01:16 00:55 CORONAVIRUS+MR.LAB.BRZ ordered. EDMS EDMS 03:36 01:00 Associated signs and symptoms: Pertinent positives: abdominal pain, diarrhea, cp nausea, vomiting, body aches, Pertinent negatives: fever, GI bleeding, cp
[2021-06-03 04:10] VITALS: TEMP 99.5; O2SAT 100
[2021-06-03 04:12] VITALS: BP 120/84
--- NOTE | 2021-06-04 13:17 | RAD REPORT ---
EXAM DESCRIPTION: CT Abdomen and Pelvis With Intravenous Contrast CLINICAL HISTORY: The patient is 30 years old and is Female; ABD PAIN TECHNIQUE: Axial computed tomography images of the abdomen and pelvis with intravenous contrast. S agittal and coronal reformatted images were created and reviewed. This CT exam was performed using one or more of the following dose reduction techniques: automated exposure control, adjustment of t he mA and/or kV according to patient size, and/or use of iterative reconstruction technique. COMPARISON: No relevant prior studies available. FINDINGS: Lung bases: Unremarkable. No mass. No consolidation. ABDOMEN: Liver: Ill-defined 1 cm low-density lesion in the right liver which is nonspecific but may repres ent a small hemangioma. Gallbladder and bile ducts: Unremarkable. No calcified stones. No ductal dilation. Pancreas: Unremarkable. No mass. No ductal dilation. Spleen: Unremarkable. No splenomegaly. Adrenals: Unremarkable. No mass. Kidneys and ureters: Unremarkable. No solid mass. No hydronephrosis. Stomach and bowel: There are a few scattered colonic diverticula. No obstruction. No mucosal thickening. PELVIS: Appendix: No findings to suggest acute appendicitis. Bladder: Unremarkable. No mass. Reproductive: 2 cm right ovarian cyst. ABDOMEN and PELVIS: Intraperitoneal space: Unremarkable. No free air. No significant fluid collection. Bones/joints: No acute fracture. No dislocation. Soft tissues: Unremarkable. Vasculature: Unremarkable. No abdominal aortic aneurysm. Lymph nodes: Unremarkable. No enlarged lymph nodes. IMPRESSION: No acute findings in the abdomen or pelvis. 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 The interpreting radiologist is fully responsible for the content of the report.
== END 2021-06-03 03:57 | disposition home or self-care (01) ==
LOC: ER 20:24
DX: E87.6 Hypokalemia (principal); R19.7 Diarrhea, unspecified; I10 Essential (primary) hypertension; Z72.0 Tobacco use; Z20.822 Contact with and (suspected) exposure to COVID-19
CPT/HCPCS: 36415; 74177; 80048; 80076; 81003; 81025; 83690; 85025; 96361; 96374; 96375; 99284; J2405; J7030; Q9967; U0003

== ENCOUNTER 2021-08-22 10:36 | Emergency (ER) | payer OTHER, SELFPAY ==
--- OUTSIDE RECORDS SUMMARY | 2021-08-22 10:39 | XMS REPORT | Continuity of Care Document ---
:1990 Author Organization [facility] t Address [address] [place] [address] Care Team Providers Name Role Phone Unavailable Unavailable Unavailable Payers Payer Name Policy Type Policy Number Effective Date Expiration Date S ource Problems This patient has no known problems. Allergies, Adverse Reactions, Alerts Allergy Allergy Status Severity Reaction(s) Onset Inactive Treating Comm ents Source Name Type Date Date Clinician No Known DA Active U [facility] Allergie 01-27 s 00:00: [address] Medications This patient has no known [...] = NRBC#) 0.00 K/mm3 0.0-0.1 N DIFFERENTIAL [id number] 19:05:00 Test Item Value Reference Range Interpretation [...] code = NORMAL NORMAL PLTMORPH) BASIC METABOLIC [id number] 18:42:00 Test Item Value Reference Range Interpretation [...] 9.2 MG/DL 8.4-10.2 N CA) HEPATIC FUNCTION [id number] 18:42:00 Test Item Value Reference Range Interpretation [...] code = 85 UNITS/L 38-126 N ALKP) [id number] 18:42:00 Test Item Value Reference Range Interpretation Comments LIPASE (test code = LIP) 109 UNITS/L 23-300 N HCG SERUM [id number] 18:42:00 Test Item Value Reference Range Interpretation Comments HCG SERUM QUAL (test code = HCGQL) NEGATIVE NEGATIVE A BASIC METABOLIC [id number] 18:40:00 Test Item Value Reference Range Interpretation [...] 9.2 MG/DL 8.4-10.2 N CA) HEPATIC FUNCTION [id number] 18:40:00 Test Item Value Reference Range Interpretation [...] code = 85 UNITS/L 38-126 N ALKP) [id number] 18:40:00 Test Item Value Reference Range Interpretation Comments LIPASE (test code = LIP) 109 UNITS/L 23-300 N HCG SERUM [id number] 18:40:00 Test Item Value Reference Range Interpretation Comments HCG SERUM QUAL (test code = HCGQL) NEGATIVE BASIC METABOLIC [id number] 18:39:00 Test Item Value Reference Range Interpretation [...] code = MG/DL 8.7-9.7 CA) HEPATIC FUNCTION [id number] 18:39:00 Test Item Value Reference Range Interpretation [...] code = 85 UNITS/L 38-126 N ALKP) [id number] 18:39:00 Test Item Value Reference Range Interpretation Comments LIPASE (test code = LIP) UNITS/L 23-300 HCG SERUM [id number] 18:39:00 Test Item Value Reference Range Interpretation Comments HCG SERUM QUAL (test code = HCGQL) NEGATIVE BASIC METABOLIC [id number] 18:37:00 Test Item Value Reference Range Interpretation [...] code = CA) MG/DL 8.7-9.7 HEPATIC FUNCTION [id number] 18:37:00 Test Item Value Reference Range Interpretation Comments TOTAL PROTEIN (test code = PROT) G/DL 6.3-8.2 ALBUMIN (test code = ALB) 4.2 G/DL 3.5-5.0 N BILIRUBIN TOTAL (test code = BILT) MG/DL 0.2-1.3 BILIRUBIN DIRECT (test code = BILD) MG/DL 0.0-0.3 SGOT/AST (test code = AST) UNITS/L 15-37 SGPT/ALT (test code = ALT) UNITS/L 9-52 ALKALINE PHOSPHATASE (test code = UNITS/L 38-126 ALKP) [id number] 18:37:00 Test Item Value Reference Range Interpretation Comments LIPASE (test code = LIP) UNITS/L 23-300 HCG SERUM [id number] 18:37:00 Test Item Value Reference Range Interpretation Comments HCG SERUM QUAL (test code = HCGQL) NEGATIVE BASIC METABOLIC [id number] 18:36:00 Test Item Value Reference Range Interpretation [...] code = CA) MG/DL 8.7-9.7 HEPATIC FUNCTION [id number] 18:36:00 Test Item Value Reference Range Interpretation Comments TOTAL PROTEIN (test code = PROT) G/DL 6.3-8.2 ALBUMIN (test code = ALB) 4.2 G/DL 3.5-5.0 N BILIRUBIN TOTAL (test code = BILT) MG/DL 0.2-1.3 BILIRUBIN DIRECT (test code = BILD) MG/DL 0.0-0.3 SGOT/AST (test code = AST) UNITS/L 15-37 SGPT/ALT (test code = ALT) UNITS/L 9-52 ALKALINE PHOSPHATASE (test code = UNITS/L 38-126 ALKP) [id number] 18:36:00 Test Item Value Reference Range Interpretation Comments LIPASE (test code = LIP) UNITS/L 23-300 HCG SERUM [id number] 18:36:00 Test Item Value Reference Range Interpretation Comments HCG SERUM QUAL (test code = HCGQL) NEGATIVE URINALYSIS [id number] 18:33:00 Test Item Value Reference Range Interpretation Comments UA COLOR (test code = YELLOW YELLOW COLU) UA APPEARANCE (test SLIGHT CLOUDY CLEAR Previou sly code = APPU) reported result : CLEAR Edited by : ERI on 02/26/19:637463 /08/05: APPEARANCE previously reported as: CLEAR UA [...] UACULT) Criteria SOURCE OF URINE: CLEAN CATCHUA [id number] 18:33:00 Test Item Value Reference Range Interpretation Comments UA RBC (test code = RBCU) 3-5 RBC/HPF 0-3 A UA WBC (test code = XWBCU) 3-5 WBC/HPF 0-5 UA EPITHELIAL CELLS (test code = FEW EPI/HPF FEW EPIU) UA BACTERIA (test code = XBACU) FEW NONE UA AMORPHOUS SEDIMENT (test code FEW NONE A = AMORU) SOURCE OF URINE: CLEAN CATCHURINALYSIS [id number] 18:27:00 Test Item Value Reference Range Interpretation [...] = UACULT) SOURCE OF URINE: CLEAN CATCHUA [id number] 18:27:00 Test Item Value Reference Range Interpretation Comments UA RBC (test code = RBCU) RBC/HPF 0-3 UA WBC (test code = XWBCU) WBC/HPF 0-5 UA EPITHELIAL CELLS (test code = EPI/HPF FEW EPIU) UA BACTERIA (test code = XBACU) NONE SOURCE OF URINE: CLEAN CATCHURINALYSIS [id number] 18:27:00 Test Item Value Reference Range Interpretation [...] = UACULT) SOURCE OF URINE: CLEAN CATCHUA [id number] 18:27:00 Test Item Value Reference Range Interpretation Comments UA RBC (test code = RBCU) RBC/HPF 0-3 UA WBC (test code = XWBCU) WBC/HPF 0-5 UA EPITHELIAL CELLS (test code = EPI/HPF FEW EPIU) UA BACTERIA (test code = XBACU) NONE SOURCE OF URINE: CLEAN CATCHCBC W/O [id number] 18:25:00 Test Item Value Reference Range Interpretation [...] = 0.00 K/mm3 0.0-0.1 N NRBC#) DIFFERENTIAL [id number] 18:25:00 Test Item Value Reference Range Interpretation Comments RBC MORPHOLOGY REQUIRED (test code = RBCM) PLATELET ESTIMATE (test code = PLTEST) ADEQUATE PLATELET MORPHOLOGY (test code = NORMAL PLTMORPH) CBC W/O [id number] 18:25:00 Test Item Value Reference Range Interpretation [...] = 0.00 K/mm3 0.0-0.1 N NRBC#) DIFFERENTIAL [id number] 18:25:00 Test Item Value Reference Range Interpretation Comments RBC MORPHOLOGY REQUIRED (test code = RBCM) PLATELET ESTIMATE (test code = PLTEST) ADEQUATE PLATELET MORPHOLOGY (test code = NORMAL PLTMORPH)
[2021-08-22 10:55] LABS: Urine Blood 1+ (Negative); Urine Glucose Negative (Negative); Urine Protein Trace (Negative); Urine Specific Gravity >=1.030 (1.005-1.030)
[2021-08-22 11:15] LABS: Absolute Lymphocytes (CBC) 4.7 K/uL (0.7-4.9); Hematocrit 34.5 % (36.0-45.0); Lymphocytes % 45.2 % (15.3-44.8); MPV 7.3 fL (7.6-11.3); RBC Red Blood Cell Count 5.06 M/uL (3.86-4.86)
[2021-08-22 11:16] LABS: Urine Specific Gravity/Preg >1.030 (1.005-1.030)
--- NOTE | 2021-08-22 11:26 | RAD REPORT ---
EXAM DESCRIPTION: US - Abdomen Exam Limited - 08/22/2021 11:21 am CLINICAL HISTORY: ABD PAIN COMPARISON: No comparisons FINDINGS: The gallbladder demonstrates no gallstones. No pericholecystic fluid or gallbladder wall t hickening. The common bile duct is normal measuring 3 mm. The liver demonstrates no findings of intrahepatic biliary dilatation. IMPRESSION: Unremarkable examination.
[2021-08-22 11:31] LABS: ALT/SGPT 19 U/L (12-78); AST/SGOT 10 U/L (15-37); Albumin 3.7 g/dL (3.4-5.0); Alkaline Phosphatase 89 U/L (45-117); BUN Blood Urea Nitrogen 8 mg/dL (7-18); Bicarbonate 21 mmol/L (21-32); Bilirubin Direct 0.1 mg/dL (0-0.2); Bilirubin Total 0.6 mg/dL (0.2-1.0); Glucose Level 98 mg/dL (74-106); Lipase 104 U/L (73-393); Potassium 3.6 mmol/L (3.5-5.1); Protein, Total 6.9 g/dL (6.4-8.2); Sodium Level 137 mmol/L (136-145)
--- NOTE | 2021-08-22 11:55 | ER ---
Nurse's Notes [facility] Name: Karsten Zamora Age: 31 yrs Sex: Female : 1990 Arrival Date: 08/22/2021 Time: 10:42 Bed 15 Private MD: Diagnosis: Upper abdominal pain, unspecified; state, incidental Presentation: 08/22 10:52 Chief complaint: Patient states: Abdominal cramping, nausea, and mild diarrhea x 2 ph days, also states that menstrual cycle is late, LMP " early July.". Coronavirus screen: Vaccine status: Patient reports receiving the 1st dose of the Covid vaccine. Ebola Screen: No symptoms or risks identified at this time. Initial Sepsis Screen: Does the patient meet any 2 criteria? No. Patient's initial sepsis screen is negative. Does the patient have a suspected source of infection? No. Patient's initial sepsis screen is negative. Risk Assessment: Do you want to hurt yourself or someone else? Patient reports no desire to harm self or others. Onset of symptoms was August 22, 2021. 10:52 Method Of Arrival: Ambulatory ph 10:52 Acuity: JOSE 3 ph Triage Assessment: 10:55 General: Appears in no apparent distress. comfortable, Behavior is calm, cooperative, ph appropriate for age, Denies fever. Pain: Complains of pain in abdomen. GI: Reports upper abdominal pain, cramping, diarrhea, indigestion, nausea. Historical: - Allergies: 10:54 No Known Allergies; ph - Home Meds: 10:54 amlodipine 10 mg tab 1 tab once daily [Active]; hydrochlorothiazide 25 mg Oral tab 1 ph tab once daily [Active]; - PMHx: 10:54 Hypertension; ph - PSHx: 10:54 None; ph - Immunization history:: Client reports receiving the 1st dose of the Covid vaccine. - Social history:: Smoking status: Patient reports the use of cigarette tobacco products, 1 pp week. Screenin:00 Abuse screen: Denies threats or abuse. Denies injuries from another. Nutritional bp screening: No deficits noted. Tuberculosis screening: No symptoms or risk factors identified. Fall Risk None identified. Assessment: 11:00 General: SEE TRIAGE NOTE. bp 11:10 Reassessment: PT TO U/S. bp 12:03 Reassessment: PT D/C HOME AMBULATORY, DX WITH . bp Vital Signs: 10:52 BP 135 / 89; Pulse 86; Resp 18; Temp 97.9; Pulse Ox 100% ; Weight 90.72 kg; Height 5 ph ft. 6 in. (167.64 cm); 11:56 BP 122 / 77; Pulse 71; Resp 16; Pulse Ox 100% ; bp 10:52 Body Mass Index 32.28 (90.72 kg, 167.64 cm) ph ED Course: 10:42 Patient arrived in ED. kz 10:42 Divine Cabrera F[facility]C [facility] kb 10:42 Osbaldo Nation MD is Attending Physician. kb 10:48 Wayne Allen, RN is Primary Nurse. bp 10:54 Triage completed. ph 10:55 Arm band placed on Patient placed in an exam room. ph 11:00 Patient has correct armband on for positive identification. Bed in low position. Call bp light in reach. Side rails up X2. 11:05 Inserted saline lock: 22 gauge in right forearm, using aseptic technique. Blood bp collected. 11:21 US Abdomen Limited In Process Unspecified. EDMS 11:56 CBC Smear Scan Sent. bp 11:56 No provider procedures requiring assistance completed. IV discontinued, intact, bp bleeding controlled, No redness/swelling at site. Pressure dressing applied. Administered Medications: No medications were administered Outcome: 11:54 Discharge ordered by MD. kb 11:56 Discharged to home ambulatory. bp 11:56 Condition: stable 11:56 Discharge instructions given to patient, Instructed on discharge instructions, follow up and referral plans. Demonstrated understanding of instructions, follow-up care. 12:03 Patient left the ED. bp Signatures: Dispatcher [employer] EDMS Divine Cabrera FNP-C FNP-Linda Joseph, RN RN ph Wayne Allen, RN RN Mandy Jean-Baptiste
--- NOTE | 2021-08-22 11:55 | EDPHYS ---
Physician Documentation [facility] Name: Karsten Zamora Age: 31 yrs Sex: Female : 1990 Arrival Date: 08/22/2021 Time: 10:42 Bed 15 Private MD: ED Physician Osbaldo Nation HPI: 08/22 11:13 This 31 yrs old Black Female presents to ER via Ambulatory with complaints of Abdominal kb Pain. 11:13 The patient presents with abdominal pain in the upper abdomen. Onset: The kb symptoms/episode began/occurred 2 day(s) ago. The symptoms do not radiate. Associated signs and symptoms: Pertinent positives: diarrhea, nausea, Pertinent negatives: fever. The symptoms are described as constant. Modifying factors: The symptoms are alleviated by nothing, the symptoms are aggravated by nothing. Severity of pain: At its worst the pain was moderate in the emergency department the pain is unchanged. The patient has not experienced similar symptoms in the past. The patient has not recently seen a physician. Pt reports abd cramping, nausea and mild diarrhea for 2 days. . Historical: - Allergies: 10:54 No Known Allergies; ph - Home Meds: 10:54 amlodipine 10 mg tab 1 tab once daily [Active]; hydrochlorothiazide 25 mg Oral tab 1 ph tab once daily [Active]; - PMHx: 10:54 Hypertension; ph - PSHx: 10:54 None; ph - Immunization history:: Client reports receiving the 1st dose of the Covid vaccine. - Social history:: Smoking status: Patient reports the use of cigarette tobacco products, 1 pp week. ROS: 11:13 Constitutional: Negative for fever, chills, and weight loss. kb 11:13 Abdomen/GI: Positive for nausea, diarrhea, abdominal cramps. 11:13 All other systems are negative. Exam: 11:13 Constitutional: This is a well developed, well nourished patient who is awake, alert, kb and in no acute distress. Head/Face: Normocephalic, atraumatic. ENT: Moist Mucous membranes Respiratory: Respirations even and unlabored. No increased work of breathing. Talking in full sentences Skin: Warm, dry with normal turgor. Normal color. MS/ Extremity: Pulses equal, no cyanosis. Neurovascular intact. Full, normal range of motion. Neuro: Awake and alert, GCS 15, oriented to person, place, time, and situation. Moves all extremities. Normal gait. Psych: Awake, alert, with orientation to person, place and time. Behavior, mood, and affect are within normal limits. 11:13 Abdomen/GI: Inspection: abdomen appears normal, Bowel sounds: normal, in all quadrants, Palpation: soft, in all quadrants, moderate abdominal tenderness, in the right upper quadrant. Vital Signs: 10:52 BP 135 / 89; Pulse 86; Resp 18; Temp 97.9; Pulse Ox 100% ; Weight 90.72 kg; Height 5 ph ft. 6 in. (167.64 cm); 11:56 BP 122 / 77; Pulse 71; Resp 16; Pulse Ox 100% ; bp 10:52 Body Mass Index 32.28 (90.72 kg, 167.64 cm) ph MDM: 10:43 Patient medically screened. kb 11:13 Data reviewed: vital signs, nurses notes. Data interpreted: Pulse oximetry: on room air kb is 100 %. Interpretation: normal. 11:51 Counseling: I had a detailed discussion with the patient and/or guardian regarding: the kb historical points, exam findings, and any diagnostic results supporting the discharge/admit diagnosis, lab results, radiology results, the need for outpatient follow up, a family practitioner, to return to the emergency department if symptoms worsen or persist or if there are any questions or concerns that arise at home. 08/22 10:46 Order name: Basic Metabolic Panel; Complete Time: 11:32 kb 08/22 10:46 Order name: CBC with Diff kb 08/22 10:46 Order name: Hepatic Function; Complete Time: 11:32 kb 08/22 10:46 Order name: Lipase; Complete Time: 11:32 kb 08/22 10:55 Order name: Urine Dipstick-Ancillary; Complete Time: 11:02 EDMS 08/22 11:01 Order name: Urine --Ancillary (enter results); Complete Time: 11:19 bd 08/22 10:46 Order name: IV Saline Lock; Complete Time: 11:08 kb 08/22 10:46 Order name: Labs collected and sent; Complete Time: 11:09 kb 08/22 10:46 Order name: US Abdomen Limited; Complete Time: 11:28 kb 08/22 10:46 Order name: Urine Dipstick-Ancillary (obtain specimen); Complete Time: 11:08 kb 08/22 10:46 Order name: Urine Test (obtain specimen); Complete Time: 11:08 kb 08/22 11:05 Order name: Quantitative Hcg; Complete Time: 11:44 kb 08/22 11:31 Order name: CBC Smear Scan EDMS Administered Medications: No medications were administered Disposition: 17:05 Co-signature as Attending Physician, Osbaldo Nation MD. rn Disposition Summary: 08/22/21 11:54 Discharge Ordered Location: Home kb Condition: Stable kb Diagnosis - Upper abdominal pain, unspecified kb - state, incidental kb Followup: kb - With: Emergency Department - When: As needed - Reason: Worsening of condition Followup: kb - With: Private Physician - When: 2 - 3 days - Reason: Recheck today's complaints, Continuance of care, Re-evaluation by your physician Discharge Instructions: - Discharge Summary Sheet kb - Abdominal Pain, Adult, [id number] kb Forms: - Medication Reconciliation Form kb - Thank You Letter kb - Antibiotic Education kb - Prescription Opioid Use kb Signatures: Dispatcher [employer] EDMS Divine Cabrera, ELECTRIC ACCOUNTING MACHINE OPERATOR-C ELECTRIC ACCOUNTING MACHINE OPERATOR-Osbaldo Johnson MD MD rn Linda Nieves RN RN ph
[2021-08-22 12:13] LABS: Anisocytosis SLIGHT; Blood Morphology Comment NOTED (NOT SEEN); Platelet Estimate INCR; Polychromasia SLIGHT; Target Cells 1+; White Blood Cell Scan OK (OK)
[2021-08-22 12:14] VITALS: TEMP 97.9; O2SAT 100
[2021-08-22 12:15] VITALS: BP 122/77
== END 2021-08-22 12:03 | disposition home or self-care (01) ==
LOC: ER 10:36
DX: R10.11 Right upper quadrant pain (principal); Z33.1 Pregnant state, incidental; I10 Essential (primary) hypertension; Z72.0 Tobacco use
CPT/HCPCS: 36415; 76705; 80048; 80076; 81003; 81025; 83690; 84702; 85025; 99283

== ENCOUNTER 2022-04-03 23:10 | Emergency (ER) | payer OTHER, SELFPAY ==
--- OUTSIDE RECORDS SUMMARY | 2022-04-03 23:16 | XMS REPORT | Continuity of Care Document ---
:1990 Author Organization [facility] t Address [address] [place] [address] Care Team Providers Name Role Phone PCP, PATIENT DOES NOT HAVE A Primary Care Physician UnavailTERRA Garcia Attending Clinician Unavailable Álvaro Kurtz MD Attending Clinician ÁLVARO KURTZ Attending Clinician Unavailable 3, [facility] Us Room Attending Clinician Unavailable NANCY CAVANAUGH Attending Clinician Unavailable Nancy Nichols Attending Clinician [phone] ANNE BROWN Attending Clinician Unavailable Risk, Sqm-Mbwhl-Xb/High Attending Clinician Unavailable Anne Clancy Attending Clinician Panchito [facility] Attending Clinician Unavailable Ilan Monreal MD Attending Clinician ILAN MONREAL Attending Clinician Unavailable Thania Sutherland Attending Clinician THANIA COLON Attending Clinician Unavailable SULEMA BUNN Attending Clinician Unavailable SULEMA BUNN Attending Clinician Unavailable Provider, [facility] Temp Attending Clinician Unavailable Ramon Boyce Attending Clinician RAMON ESTRELLA Attending Clinician Unavailable Ultrasound, Ang-m Attending Clinician Unavailable Thor Suh DO Attending Clinician WATSON CARRASCO Attending Clinician Unavailable WATSON CARRASCO Attending Clinician Unavailable Watson Carrasco MD Attending Clinician Yoni Light MD Attending Clinician [phone] YONI LIGHT Attending Clinician Unavailable Harshal Regalado MD Attending Clinician HARSHAL REGALADO Attending Clinician Unavailable HARSHAL REGALADO Attending Clinician Unavailable Doctor Unassigned, [place] Attending Clinician Unavailable DC, SAKINA ERIBERTO Attending Clinician Unavailable Melvin ALVAREZ, Magdalena Trinh Attending Clinician Sakina Irwin MD Attending Clinician Thania Lomeli RN Attending Clinician Unavailable LEEANNA COLON Attending Clinician Unavailable Leeanna Rushing Attending Clinician Pcp, Patient Does Not Have A Attending Clinician [phone] June ALVAREZ, Jin Butterfield Attending Clinician Jeferson French MD Attending Clinician [phone] Visit, [facility] Nurse Attending Clinician Unavailable 1, [facility] Us Room Attending Clinician Unavailable Gerson Bird Attending Clinician GERSON ROSE Attending Clinician Unavailable ÁLVARO KURTZ Admitting Clinician Unavailable Álvaro Kurtz MD Admitting Clinician WATSON CARRASCO Admitting Clinician Unavailable Watson Carrasco MD Admitting Clinician SAKINA IRWIN Admitting Clinician Unavailable Sakina Irwin MD Admitting Clinician Payers Payer Name Policy Type Policy Number Effective Date Expiration Date S [employer] [id number] 2021 [place] 00:00:00 [place]ICAID OF [place] [id number] 2021 00:00:00 Problems Condition Condition Condition Status Onset Resolution Last Treating Co mments Source Name Details Category Date Date Treatment Clinician Date Non-reassu Non-reassu Disease Active 2021-06 U nivers ring ring 0-17 [place] 00 Medical monitoring monitoring Br anch tracing tracing 32 weeks 32 weeks Disease Active Unive rs gestation gestation 9-22 ity of of of 00:00: [place] 00 Medi milady Branch GERD GERD Disease Active Univers (gastroeso (gastroeso - it y of phageal phageal 00:00: [place] reflux reflux 00 Medical disease) disease) Branch Maternal Maternal Disease Active Unive rs syphilis, syphilis, 9-15 [place]y of complicati complicati [place] 00 Medical , , Br anch with with delivery delivery Pre-existi Pre-existi Disease Active U nivers ng ng 8-25 [place] essential essential [place] hypert[place] hypertens[place] 00 Me dical on during on during Bran ch in third in third trimester trimester Anemia of Anemia of Disease Active Uni vers mother in mother in 8-08 [place] of , , [place] antepartum antepartum 00 Me dical Branch Placenta Placenta Disease Active Unive rs previa previa 8-05 ity of 00:00: [place] 00 Medical Branch Maternal Maternal Disease Active Unive rs syphilis, syphilis, 6-09 ity of antepartum antepartum [place] 00 [place] Exposure Exposure Disease Active Unive rs to to 6-09 ity of antihypert antihypert [place] ensive ensive 00 Medical drug in drug in Branch utero utero Maternal Maternal Disease Active Unive rs chronic chronic 5-06 ity of hypertensi hypertensi [place] in 00 Medical second second Branch trimester trimester High-risk High-risk Disease Active Uni vers , , 3-24 it y of third third 00:00: [place] trimester trimester 00 [facility] milady Branch Multiparit Multiparit Disease Active U nivers y y 3-24 ity of 00:: [address] HTN HTN Disease Active Univers complicati complicati 3-24 it y of ng ng 00:00: [place] peripregna peripregna 00 Me dical ncy, ncy, Branch antepartum antepartum , first , first trimester trimester Obesity in Obesity in Disease Active U nivers 3-24 ity of 00:: [address] BMI BMI Disease Active Univers 33.0-33.9, 33.0-33.9, 3-24 it y of adult adult 00:00: [address] Former Former Disease Active Univers smoker smoker 24 ity of :: [address] Allergies, Adverse Reactions, Alerts Allergy Allergy Status Severity Reaction(s) Onset Inactive Treating Comm ents Source Name Type Date Date Clinician No Known DA Active U [facility] Allergie 8- [facility] 00:00: [address] NO KNOWN Drug Active Univers ALLERGIE Class ity of S [facility] Social History Social Habit Start Date Stop Date Quantity Comments Source History SDOH University o f Alcohol Frequency [place] M edical Branch History SDOH University o f Alcohol Std [place] Medical Drinks Branch History [facility] o f Alcohol Binge [place] Medic al [place] [facility] Exposure to 2022-03-23 2022-04-02 Not sure [place] of SARS-CoV-2 00:00:00 15:33:[address] [facility] (event) Branch Alcohol intake 2022-04-02 2022-04-02 Ex-drinker University of 00:00:00 00:00:00 (finding) [facility] Tobacco Comment 2022-01-19 2022-01-19 quit smoking with Un iversity of 00:00:00 00:00:[address] [facility] confirmation [place] Tobacco use and 2021-10-09 2021-10-09 Smokeless tobacco Me [facility]odist exposure 00:00:00 00:00:00 non-user Hospital Alcohol Comment 2021-09-07 2021-09-07 not while U niversity of 00:00:00 00:00:00 [facility] History of 2021-09-07 Cigarette Smoker Universi ty of tobacco use 00:00:00 [facility] Sex Assigned At [birth year] [facility] 00:00:00 00:00:00 Hospital Smoking Status Start Date Stop Date Source Ex-smoker 2022-01-19 00:00:00 2022-01-19 [place] o f [place] 00:00:00 [facility] Tobacco smoking [facility] consumption unknown Medications Ordered Filled Start Stop Current Ordering Indication Dosage Frequency Signature Comments Components Source Medication Medication Date Date Medication? Clinician (SIG) Name Name shawanda- 2021-06- No 2{tbl} 2 tablet, Univers acetaminoph 0-18 10-18 Oral, ity of en-caff 14:34: 16:22 ONCE, 1 [place] (ESGIC) 00 :00 dose, On Medical 50-325-40 [facility] Branch mg tablet 2 04/03/22 tablet at 0945, Routine amLODIPine 2021-06 Yes 10mg 10 mg, Unive rs (NORVASC) 0-18 Oral, ity of tablet 10 14:00: DAILY, [place] mg 00 First dose Medical on [facility] 04/03/22 at 0900, Until Discontinu ed, Routine hydroCHLORO 2021-06 Yes 25mg 25 mg, Univ ers thiazide 0-18 Oral, ity of (ESIDRIX) 14:00: DAILY, [place] tablet 25 00 First dose Medi milady mg on [facility] 04/03/22 at 0900, Until Discontinu ed, Routine 2021-06 Yes 1{tbl} 1 tablet, Un kamryn vitamin 0-18 Oral, ity of w/FA tablet 14:00: [place] 1 [place] 00 First dose Medic al on [facility] 04/03/22 at 0900, Until Discontinu ed, Routine acetaminoph 2021-06 No 1000mg 1,000 mg, Univers en 0-18 10-18 Oral, ity of (TYLENOL) 08:15: 07:36 ONCE, [place] tablet [place] :00 dose, On Medical 1,000 mg [facility] 04/03/22 at 0315, Routine alum-mag 2021-06 Yes 30mL 30 mL, Univers hydroxide-s 0-18 Oral, ity of imeth 00:26: Q6HPRN, [place] (MAALOX 29 Starting Medical PLUS / on Sat Branch MAG-AL 04/02/22 PLUS) at 1926, 200-200-20 Until mg/5 mL Discontinu suspension ed, 30 mL Routine, Indigestio n docusate 2021-06 Yes 200mg 200 mg, Unive rs (COLACE) 0-18 Oral, ity of capsule 200 00:26: QHSPRN, [place] mg 29 Starting Medical on [facility] Branch 04/02/22 at 1926, Until Discontinu ed, Routine, Constipati on magnesium 2021-06 Yes 30mL 30 mL, Univer s hydroxide 0-18 Oral, ity of (MILK OF 00:26: QDAILYPRN, [place] MAGNESIA) 29 Starting Medica l 400 mg/5 mL on [facility] Branch suspension 04/02/22 30 mL at 1926, Until Discontinu ed, Routine, Constipati on amLODIPine 2021-06- No 10mg Take 10 mg Univers 10 mg 0-17 10-17 by mouth ity of tablet 16:11: 00:00 daily. [place] 07 :00 Medical Branch hydroCHLORO 2021-06- No 25mg Take 25 mg Univers thiazide 25 0-17 10-17 by mouth ity of mg tablet 16:11: 00:00 daily. [place] 07 :00 Medical Branch amLODIPine 2021-06 Yes [id number] 10mg Take 1 U nivers 10 mg 0-17 tablet by ity of tablet 00:00: mouth in [place] the Medical morning. Branch hydroCHLORO 2021-06 Yes [id number] 25mg Take 1 Univers thiazide 25 0-17 tablet by ity of mg tablet 00:00: mouth in [facility] 00 the Medical morning. Branch amLODIPine 2021-06 Yes [id number] 10mg Take 1 U nivers 10 mg 0-17 tablet by ity of tablet 00:00: mouth in [place] 00 the Medical morning. Branch hydroCHLORO 2021-06 Yes [id number] 25mg Take 1 Univers thiazide 25 0-17 tablet by ity of mg tablet 00:00: mouth in [facility] 00 the Medical morning. Branch amoxicillin Yes 500mg Take 500 U nivers 500 mg 9-26 mg by ity of capsule 00:00: mouth in [place] the Medical morning Branch and 500 mg at noon and 500 mg in the evening. amoxicillin 2022-0 Yes 500mg Take 500 U nivers 500 mg 9-26 mg by ity of capsule 00:00: mouth in [place] 00 the Medical morning Branch and 500 mg at noon and 500 mg in the evening. amoxicillin 2022-0 Yes 500mg Take 500 U nivers 500 mg 9-26 mg by ity of capsule 00:00: mouth in [place] 00 the Medical morning Branch and 500 mg at noon and 500 mg in the evening. amoxicillin 2022-0 Yes 500mg Take 500 U nivers 500 mg 9-26 mg by ity of capsule 00:00: mouth in [place] [address] the Medical morning Branch and 500 mg at noon and 500 mg in the evening. amoxicillin 2022-0 Yes 500mg Take 500 U nivers 500 mg 9-26 mg by ity of capsule 00:00: mouth in [place] [address] the Medical morning Branch and 500 mg at noon and 500 mg in the evening. amoxicillin 2022-0 Yes 500mg Take 500 U nivers 500 mg 9-26 mg by ity of capsule 00:00: mouth in [place] [address] the Medical morning Branch and 500 mg at noon and 500 mg in the evening. amoxicillin 2022-0 Yes 500mg Take 500 U nivers 500 mg 9-26 mg by ity of capsule 00:00: mouth in [place] [address] the Medical morning Branch and 500 mg at noon and 500 mg in the evening. amoxicillin 2022-0 Yes 500mg Take 500 U nivers 500 mg 9-26 mg by ity of capsule 00:00: mouth in [place] [address] the Medical morning Branch and 500 mg at noon and 500 mg in the evening. amoxicillin 2022-0 Yes 500mg Take 500 U nivers 500 mg 9-26 mg by ity of capsule 00:00: mouth in [place] [address] the Medical morning Branch and 500 mg at noon and 500 mg in the evening. amLODIPine 2022-0 Yes 10mg Take 10 mg U nivers 10 mg 9-23 by mouth ity of tablet 10:29: daily. [address] hydroCHLORO 2022-0 Yes 25mg Take 25 mg Univers thiazide 25 9-23 by mouth ity of mg tablet 10:29: daily. [address] amLODIPine 2022-0 Yes 10mg Take 10 mg U nivers 10 mg 9-23 by mouth ity of tablet 10:29: daily. [address] hydroCHLORO 2021-0 Yes 25mg Take 25 mg Univers thiazide 25 9-23 by mouth ity of mg tablet 10:29: daily. [address] amLODIPine 2021-0 Yes 10mg Take 10 mg U nivers 10 mg 9-23 by mouth ity of tablet 10:29: daily. [address] hydroCHLORO 2021-0 Yes 25mg Take 25 mg Univers thiazide 25 9-23 by mouth ity of mg tablet 10:29: daily. [address] amLODIPine 2021-0 Yes 10mg Take 10 mg U nivers 10 mg 9-23 by mouth ity of tablet 10:29: daily. [address] hydroCHLORO 2021-0 Yes 25mg Take 25 mg Univers thiazide 25 9-23 by mouth ity of mg tablet 10:29: daily. [address] amLODIPine 2021-0 Yes 10mg Take 10 mg U nivers 10 mg 9-23 by mouth ity of tablet 10:29: daily. [address] hydroCHLORO 2021-0 Yes 25mg Take 25 mg Univers thiazide 25 9-23 by mouth ity of mg tablet 10:29: daily. [address] amLODIPine 2021-0 Yes 10mg Take 10 mg U nivers 10 mg 9-23 by mouth ity of tablet 10:29: daily. [address] hydroCHLORO 2021-0 Yes 25mg Take 25 mg Univers thiazide 25 9-23 by mouth ity of mg tablet 10:29: daily. [address] amLODIPine 2021-0 Yes 10mg Take 10 mg U nivers 10 mg 9-23 by mouth ity of tablet 10:29: daily. [address] hydroCHLORO 2021-0 Yes 25mg Take 25 mg Univers thiazide 25 9-23 by mouth ity of mg tablet 10:29: daily. [address] amLODIPine 2021-0 Yes 10mg Take 10 mg U nivers 10 mg 9-23 by mouth ity of tablet 10:29: daily. [address] hydroCHLORO 2021-0 Yes 25mg Take 25 mg Univers thiazide 25 9-23 by mouth ity of mg tablet 10:29: daily. [address] amLODIPine 2021-0 Yes 10mg Take 10 mg U nivers 10 mg 9-23 by mouth ity of tablet 10:29: daily. [address] hydroCHLORO 2021-0 Yes 25mg Take 25 mg Univers thiazide 25 9-23 by mouth ity of mg tablet 10:29: daily. [address] amLODIPine 2021-0 Yes 10mg Take 10 mg U nivers 10 mg 9-23 by mouth ity of tablet 10:29: daily. [address] hydroCHLORO 2021-0 Yes 25mg Take 25 mg Univers thiazide 25 9-23 by mouth ity of mg tablet 10:29: daily. [address] amLODIPine 2021-0 Yes 10mg Take 10 mg U nivers 10 mg 9-23 by mouth ity of tablet 10:29: daily. [address] hydroCHLORO 0 Yes 25mg Take 25 mg Univers thiazide 25 9-23 by mouth ity of mg tablet 10:29: daily. [address] pantoprazol 2021- No 40mg 40 mg, Uni vers e 03-08 Oral, ity of (PROTONIX) 16:25: 16:53 ONCE, 1 [place] tablet 00 :00 dose, On Medica l 40 mg Noemy [place] 03/08/22 at 1130, Routine amLODIPine 0 Yes 10mg Take 10 mg U nivers 10 mg 03-08 by mouth ity of tablet 11:59: daily. [address] hydroCHLORO 0 Yes 25mg Take 25 mg Univers thiazide 25 -22 by mouth ity of mg tablet 11:59: daily. [address] pantoprazol 0 Yes [id number] 40mg Take 1 Univers e 40 mg EC -22 tablet by ity of tablet 00:00: mouth in [place] [address] the Medical morning. [place] pantoprazol 2021-0 Yes [id number] 40mg Take 1 Univers e 40 mg EC 9-22 tablet by ity of tablet 00:00: mouth in [place] the Medical morning. Branch pantoprazol 2021-0 Yes [id number] 40mg Take 1 Univers e 40 mg EC 9-22 tablet by ity of tablet 00:00: mouth in [place] the Medical morning. [place] pantoprazol 2021-0 Yes [id number] 40mg Take 1 Univers e 40 mg EC 9-22 tablet by ity of tablet 00:00: mouth in [place] 00 the Medical morning. Branch pantoprazol 2021-0 Yes [id number] 40mg Take 1 Univers e 40 mg EC 9-22 tablet by ity of tablet 00:00: mouth in [place] the Medical morning. Branch pantoprazol 2021-0 Yes [id number] 40mg Take 1 Univers e 40 mg EC 9-22 tablet by ity of tablet 00:00: mouth in [place] the Medical morning. Branch pantoprazol 2021-0 Yes [id number] 40mg Take 1 Univers e 40 mg EC 9-22 tablet by ity of tablet 00:00: mouth in [place] the Medical morning. Branch pantoprazol 2021-0 Yes [id number] 40mg Take 1 Univers e 40 mg EC 9-22 tablet by ity of tablet 00:00: mouth in [place] the Medical morning. Branch pantoprazol 2021-0 Yes [id number] 40mg Take 1 Univers e 40 mg EC 9-22 tablet by ity of tablet 00:00: mouth in [place] the Medical morning. Branch pantoprazol 2021-0 Yes [id number] 40mg Take 1 Univers e 40 mg EC 9-22 tablet by ity of tablet 00:00: mouth in [place] the Medical morning. Branch pantoprazol 2021-0 Yes [id number] 40mg Take 1 Univers e 40 mg EC 9-22 tablet by ity of tablet 00:00: mouth in [place] the Medical morning. Branch pantoprazol 2021-0 Yes [id number] 40mg Take 1 Univers e 40 mg EC 9-22 tablet by ity of tablet 00:00: mouth in [place] the Medical morning. Branch pantoprazol 2021-0 Yes [id number] 40mg Take 1 Univers e 40 mg EC 9-22 tablet by ity of tablet 00:00: mouth in [place] the Medical morning. Branch pantoprazol 2021-0 Yes [id number] 40mg Take 1 Univers e 40 mg EC 9-22 tablet by ity of tablet 00:00: mouth in [place] 00 the Medical morning. Branch amLODIPine 2021-0 Yes 10mg Take 10 mg U nivers 10 mg 8-20 by mouth ity of tablet 16:56: daily. [address] Branch hydroCHLORO 2021-0 Yes 25mg Take 25 mg Univers thiazide 25 8-20 by mouth ity of mg tablet 16:56: daily. [address] amLODIPine 2021-0 Yes 10mg Take 10 mg U nivers 10 mg 8-20 by mouth ity of tablet 16:56: daily. [address] hydroCHLORO 2021-0 Yes 25mg Take 25 mg Univers thiazide 25 8-20 by mouth ity of mg tablet 16:56: daily. [address] amLODIPine 2021-0 Yes 10mg Take 10 mg U nivers 10 mg 8-20 by mouth ity of tablet 16:56: daily. [address] hydroCHLORO 2021-0 Yes 25mg Take 25 mg Univers thiazide 25 8-20 by mouth ity of mg tablet 16:56: daily. [address] amLODIPine 2021-0 Yes 10mg Take 10 mg U nivers 10 mg 8-20 by mouth ity of tablet 16:56: daily. [address] hydroCHLORO 2021-0 Yes 25mg Take 25 mg Univers thiazide 25 8-20 by mouth ity of mg tablet 16:56: daily. [address] amLODIPine 2021-0 Yes 10mg Take 10 mg U nivers 10 mg 8-20 by mouth ity of tablet 16:56: daily. [address] hydroCHLORO 2021-0 Yes 25mg Take 25 mg Univers thiazide 25 8-20 by mouth ity of mg tablet 16:56: daily. [address] ascorbic 2022-0 Yes [id number] 500mg Take 1 U nivers acid, 8-08 tablet by ity of vitamin C, 00:00: mouth in [place] 500 mg 00 the Medical tablet morning Branch and 1 tablet at noon and 1 tablet in the evening. ferrous 2022-0 Yes [id number] 325mg Take 1 Un kamryn sulfate 325 8-08 tablet by ity of mg (65 mg 00:00: [place] iron[place] 00 the Medical tablet morning Branch and 1 tablet in the evening. ascorbic 2022-0 Yes [id number] 500mg Take 1 U nivers acid, 8-08 tablet by ity of vitamin C, 00:00: mouth in [place] 500 mg 00 the Medical tablet morning Branch and 1 tablet at noon and 1 tablet in the evening. ferrous 2022-0 Yes [id number] 325mg Take 1 Un kamryn sulfate 325 8-08 tablet by ity of mg (65 mg 00:00: [place] iron[place] 00 the Medical tablet morning Branch and 1 tablet in the evening. ascorbic 2021-0 Yes [id number] 500mg Take 1 U nivers acid, 8-08 tablet by ity of vitamin C, 00:00: mouth in [place] 500 mg 00 the Medical tablet morning Branch and 1 tablet at noon and 1 tablet in the evening. ferrous 2021-0 Yes [id number] 325mg Take 1 Un kamryn sulfate 325 8-08 tablet by ity of mg (65 mg 00:00: [place] iron[place] 00 the Medical tablet morning Branch and 1 tablet in the evening. ascorbic 2021-0 Yes [id number] 500mg Take 1 U nivers acid, 8-08 tablet by ity of vitamin C, 00:00: mouth in [place] 500 mg 00 the Medical tablet morning Branch and 1 tablet at noon and 1 tablet in the evening. ferrous 2021-0 Yes [id number] 325mg Take 1 Un kamryn sulfate 325 8-08 tablet by ity of mg (65 mg 00:00: [place] iron[place] 00 the Medical tablet morning Branch and 1 tablet in the evening. ascorbic 0 Yes [id number] 500mg Take 1 U nivers acid, 8-08 tablet by ity of vitamin C, 00:00: mouth in [place] 500 mg 00 the Medical tablet morning Branch and 1 tablet at noon and 1 tablet in the evening. ferrous 2021-0 Yes [id number] 325mg Take 1 Un kamryn sulfate 325 8-08 tablet by ity of mg (65 mg 00:00: [place] iron[place] 00 the Medical tablet morning Branch and 1 tablet in the evening. ascorbic 2021-0 Yes [id number] 500mg Take 1 U nivers acid, 8-08 tablet by ity of vitamin C, 00:00: mouth in [place] 500 mg 00 the Medical tablet morning Branch and 1 tablet at noon and 1 tablet in the evening. ferrous 2021-0 Yes [id number] 325mg Take 1 Un kamryn sulfate 325 8-08 tablet by ity of mg (65 mg 00:00: [place] iron[place] 00 the Medical tablet morning Branch and 1 tablet in the evening. ascorbic 2021-0 Yes [id number] 500mg Take 1 U nivers acid, 8-08 tablet by ity of vitamin C, 00:00: mouth in [place] 500 mg 00 the Medical tablet morning Branch and 1 tablet at noon and 1 tablet in the evening. ferrous 2021-0 Yes [id number] 325mg Take 1 Un kamryn sulfate 325 8-08 tablet by ity of mg (65 mg 00:00: [place] iron[place] 00 the Medical tablet morning Branch and 1 tablet in the evening. ascorbic 2021-0 Yes [id number] 500mg Take 1 U nivers acid, 8-08 tablet by ity of vitamin C, 00:00: mouth in [place] 500 mg 00 the Medical tablet morning Branch and 1 tablet at noon and 1 tablet in the evening. ferrous 2021-0 Yes [id number] 325mg Take 1 Un kamryn sulfate 325 8-08 tablet by ity of mg (65 mg 00:00: [place] iron[place] 00 the Medical tablet morning Branch and 1 tablet in the evening. ascorbic 2021-0 Yes [id number] 500mg Take 1 U nivers acid, 8-08 tablet by ity of vitamin C, 00:00: mouth in [place] 500 mg 00 the Medical tablet morning Branch and 1 tablet at noon and 1 tablet in the evening. ferrous 2021-0 Yes [id number] 325mg Take 1 Un kamryn sulfate 325 8-08 tablet by ity of mg (65 mg 00:00: [place] iron[place] 00 the Medical tablet morning Branch and 1 tablet in the evening. ascorbic 2021-0 Yes [id number] 500mg Take 1 U nivers acid, 8-08 tablet by ity of vitamin C, 00:00: mouth in [place] 500 mg 00 the Medical tablet morning Branch and 1 tablet at noon and 1 tablet in the evening. ferrous 2021-0 Yes [id number] 325mg Take 1 Un kamryn sulfate 325 8-08 tablet by ity of mg (65 mg 00:00: [place] iron[place] 00 the Medical tablet morning Branch and 1 tablet in the evening. ascorbic 2021-0 Yes [id number] 500mg Take 1 U nivers acid, 8-08 tablet by ity of vitamin C, 00:00: mouth in [place] 500 mg 00 the Medical tablet morning Branch and 1 tablet at noon and 1 tablet in the evening. ferrous 2021-0 Yes [id number] 325mg Take 1 Un kamryn sulfate 325 8-08 tablet by ity of mg (65 mg 00:00: [place] iron[place] 00 the Medical tablet morning Branch and 1 tablet in the evening. ascorbic 2021-0 Yes [id number] 500mg Take 1 U nivers acid, 8-08 tablet by ity of vitamin C, 00:00: mouth in [place] 500 mg 00 the Medical tablet morning Branch and 1 tablet at noon and 1 tablet in the evening. ferrous 2021-0 Yes [id number] 325mg Take 1 Un kamryn sulfate 325 8-08 tablet by ity of mg (65 mg 00:00: [place] iron[place] 00 the Medical tablet morning Branch and 1 tablet in the evening. ascorbic 2021-0 Yes [id number] 500mg Take 1 U nivers acid, 8-08 tablet by ity of vitamin C, 00:00: mouth in [place] 500 mg 00 the Medical tablet morning Branch and 1 tablet at noon and 1 tablet in the evening. ferrous 2021-0 Yes [id number] 325mg Take 1 Un kamryn sulfate 325 8-08 tablet by ity of mg (65 mg 00:00: [place] 00 the Medical tablet morning Branch and 1 tablet in the evening. ascorbic 2021-0 Yes [id number] 500mg Take 1 U nivers acid, 8-08 tablet by ity of vitamin C, 00:00: mouth in [place] 500 mg 00 the Medical tablet morning Branch and 1 tablet at noon and 1 tablet in the evening. ferrous 2021-0 Yes [id number] 325mg Take 1 Un kamryn sulfate 325 8-08 tablet by ity of mg (65 mg 00:00: [place] 00 the Medical tablet morning Branch and 1 tablet in the evening. ascorbic 2021-0 Yes [id number] 500mg Take 1 U nivers acid, 8-08 tablet by ity of vitamin C, 00:00: mouth in [place] 500 mg 00 the Medical tablet morning Branch and 1 tablet at noon and 1 tablet in the evening. ferrous 2021-0 Yes [id number] 325mg Take 1 Un kamryn sulfate 325 8-08 tablet by ity of mg (65 mg 00:00: [place] 00 the Medical tablet morning Branch and 1 tablet in the evening. ascorbic 2021-0 Yes [id number] 500mg Take 1 U nivers acid, 8-08 tablet by ity of vitamin C, 00:00: mouth in [place] 500 mg 00 the Medical tablet morning Branch and 1 tablet at noon and 1 tablet in the evening. ferrous 2021-0 Yes [id number] 325mg Take 1 Un kamryn sulfate 325 8-08 tablet by ity of mg (65 mg [place] 00 [place] [facility] tablet morning Branch and 1 tablet in the evening. ascorbic 2021-0 Yes [id number] 500mg Take 1 U nivers acid, 8-08 tablet by ity of vitamin C, 00:00: mouth in [place] 500 mg 00 the Medical tablet morning Branch and 1 tablet at noon and 1 tablet in the evening. ferrous 2021-0 Yes [id number] 325mg Take 1 Un kamryn sulfate 325 8-08 tablet by ity [facility] mg (65 mg [place]: [place] 00 the Medical tablet morning Branch and 1 tablet in the evening. ascorbic 0 Yes [id number] 500mg Take 1 U nivers acid, 8-08 tablet by ity of vitamin C, 00:00: mouth in [place] 500 mg 00 the Medical tablet morning Branch and 1 tablet at noon and 1 tablet in the evening. ferrous 2021-0 Yes [id number] 325mg Take 1 Un kamryn sulfate 325 8-08 tablet by ity [facility] mg (65 mg [place]: [place] 00 the Medical tablet morning Branch and 1 tablet in the evening. ascorbic 2021-0 Yes [id number] 500mg Take 1 U nivers acid, 8-08 tablet by ity of vitamin C, 00:00: mouth in [place] 500 mg 00 the Medical tablet morning Branch and 1 tablet at noon and 1 tablet in the evening. ferrous 2021-0 Yes [id number] 325mg Take 1 Un kamryn sulfate 325 8-08 tablet by [facility] mg (65 mg [place]: [place] 00 the Medical tablet morning Branch and 1 tablet in the evening. ascorbic 2021-0 Yes [id number] 500mg Take 1 U nivers acid, 8-08 tablet by ity of vitamin C, 00:00: mouth in [place] 500 mg 00 the Medical tablet morning Branch and 1 tablet at noon and 1 tablet in the evening. ferrous 2021-0 Yes [id number] 325mg Take 1 Un kamryn sulfate 325 8-08 tablet by [facility] mg (65 mg [place]: [place] 00 the Medical tablet morning Branch and 1 tablet in the evening. aspirin 81 2021-0 Yes [id number] 81mg Take 1 U nivers mg EC 5-02 tablet by ity of tablet 00:00: mouth [place] 00 daily. Medical Branch aspirin 81 2021-0 Yes [id number] 81mg Take 1 U nivers mg EC 5-02 tablet by ity of tablet 00:00: mouth [place] 00 daily. Medical Branch aspirin 81 2021-0 Yes [id number] 81mg Take 1 U nivers mg EC 5-02 tablet by ity of tablet 00:00: mouth [place] 00 daily. Medical Branch aspirin 81 2021-0 Yes [id number] 81mg Take 1 U nivers mg EC 5-02 tablet by ity of tablet 00:00: mouth [place] 00 daily. Medical Branch aspirin 81 2021-0 Yes [id number] 81mg Take 1 U nivers mg EC 5-02 tablet by ity of tablet 00:00: mouth [place] 00 daily. Medical Branch aspirin 81 2021-0 Yes [id number] 81mg Take 1 U nivers mg EC 5-02 tablet by ity of tablet 00:00: mouth [place] 00 daily. Medical Branch aspirin 81 2021-0 Yes [id number] 81mg Take 1 U nivers mg EC 5-02 tablet by ity of tablet 00:00: mouth [place] 00 daily. Medical Branch aspirin 81 2021-0 Yes [id number] 81mg Take 1 U nivers mg EC 5-02 tablet by ity of tablet 00:00: mouth [place] 00 daily. Medical Branch aspirin 81 2021-0 Yes [id number] 81mg Take 1 U nivers mg EC 5-02 tablet by ity of tablet 00:00: mouth [place] 00 daily. Medical Branch aspirin 81 2021-0 Yes [id number] 81mg Take 1 U nivers mg EC 5-02 tablet by ity of tablet 00:00: mouth [place] 00 daily. Medical Branch aspirin 81 2021-0 Yes [id number] 81mg Take 1 U nivers mg EC 5-02 tablet by ity of tablet 00:00: mouth [place] 00 daily. Medical Branch aspirin 81 2021-0 Yes [id number] 81mg Take 1 U nivers mg EC 5-02 tablet by ity of tablet 00:00: mouth [place] 00 daily. Medical Branch aspirin 81 2021-0 Yes [id number] 81mg Take 1 U nivers mg EC 5-02 tablet by ity of tablet 00:00: mouth [place] 00 daily. Medical Branch aspirin 81 2021-0 Yes [id number] 81mg Take 1 U nivers mg EC 5-02 tablet by ity of tablet 00:00: mouth [place] 00 daily. Medical Branch aspirin 81 2021-0 Yes [id number] 81mg Take 1 U nivers mg EC 5-02 tablet by ity of tablet 00:00: mouth [place] 00 daily. Medical Branch aspirin 81 2021-0 Yes [id number] 81mg Take 1 U nivers mg EC 5-02 tablet by ity of tablet 00:00: mouth [place] 00 daily. Medical Branch aspirin 81 2021-0 Yes [id number] 81mg Take 1 U nivers mg EC 5-02 tablet by ity of tablet 00:00: mouth [place] 00 daily. Medical Branch aspirin 81 2021-0 Yes [id number] 81mg Take 1 U nivers mg EC 5-02 tablet by ity of tablet 00:00: mouth [place] 00 daily. Medical Branch aspirin 81 2021-0 Yes [id number] 81mg Take 1 U nivers mg EC 5-02 tablet by ity of tablet 00:00: mouth [place] 00 daily. Medical Branch aspirin 81 2021-0 Yes [id number] 81mg Take 1 U nivers mg EC 5-02 tablet by ity of tablet 00:00: mouth [place] 00 daily. Medical Branch ondansetron 2021-0 202- No 4mg Q6H Take 1 Met hodi (ZOFRAN) 4 4-25 05-26 tablet (4 st MG tablet 00:00: 04:59 mg total) [facility] 00 :00 by mouth l every 6 (six) hours for 30 days. 2021-0 Yes [id number] 1{packe Take 1 Univers vit 3-24 t} Packet by ity of 33-iron-fol 00:00: mouth [place] ic-dha 00 daily. Medical (SELECT-OB Branch + DHA) 29 mg iron-1 mg -250 mg combo pack 2021-0 Yes [id number] 1{packe Take 1 Univers vit 3-24 t} Packet by ity of 33-iron-fol 00:00: mouth [place] ic-dha 00 daily. Medical (SELECT-OB Branch + DHA) 29 mg iron-1 mg -250 mg combo pack Yes [id number] 1{packe Take 1 Univers vit 3-24 t} Packet by ity of 33-iron-fol 00:00: mouth [place] ic-dha 00 daily. Medical (SELECT-OB Branch + DHA) 29 mg iron-1 mg -250 mg combo pack 0 Yes [id number] 1{packe Take 1 Univers vit 3-24 t} Packet by ity of 33-iron-fol 00:00: mouth [place] ic-dha 00 daily. Medical (SELECT-OB Branch + DHA) 29 mg iron-1 mg -250 mg combo pack Yes [id number] 1{packe Take 1 Univers vit 3-24 t} Packet by ity of 33-iron-fol 00:00: mouth [place] ic-dha 00 daily. Medical (SELECT-OB Branch + DHA) 29 mg iron-1 mg -250 mg combo pack Yes [id number] 1{packe Take 1 Univers vit 3-24 t} Packet by ity of 33-iron-fol 00:00: mouth [place] ic-dha 00 daily. Medical (SELECT-OB Branch + DHA) 29 mg iron-1 mg -250 mg combo pack Yes [id number] 1{packe Take 1 Univers vit 3-24 t} Packet by ity of 33-iron-fol 00:00: mouth [place] ic-dha 00 daily. Medical (SELECT-OB Branch + DHA) 29 mg iron-1 mg -250 mg combo pack Yes [id number] 1{packe Take 1 Univers vit 3-24 t} Packet by ity of 33-iron-fol 00:00: mouth [place] ic-dha 00 daily. Medical (SELECT-OB Branch + DHA) 29 mg iron-1 mg -250 mg combo pack Yes [id number] 1{packe Take 1 Univers vit 3-24 t} Packet by ity of 33-iron-fol 00:00: mouth [place] ic-dha 00 daily. Medical (SELECT-OB Branch + DHA) 29 mg iron-1 mg -250 mg combo pack Yes [id number] 1{packe Take 1 Univers vit 3-24 t} Packet by ity of 33-iron-fol 00:00: mouth [place] ic-dha 00 daily. Medical (SELECT-OB Branch + DHA) 29 mg iron-1 mg -250 mg combo pack Yes [id number] 1{packe Take 1 Univers vit 3-24 t} Packet by ity of 33-iron-fol 00:00: mouth [place] ic-dha 00 daily. Medical (SELECT-OB Branch + DHA) 29 mg iron-1 mg -250 mg combo pack Yes [id number] 1{packe Take 1 Univers vit 3-24 t} Packet by ity of 33-iron-fol 00:00: mouth [place] ic-dha 00 daily. Medical (SELECT-OB Branch + DHA) 29 mg iron-1 mg -250 mg combo pack Yes [id number] 1{packe Take 1 Univers vit 3-24 t} Packet by ity of 33-iron-fol 00:00: mouth [place] ic-dha 00 daily. Medical (SELECT-OB Branch + DHA) 29 mg iron-1 mg -250 mg combo pack Yes [id number] 1{packe Take 1 Univers vit 3-24 t} Packet by ity of 33-iron-fol 00:00: mouth [place] ic-dha 00 daily. Medical (SELECT-OB Branch + DHA) 29 mg iron-1 mg -250 mg combo pack Yes [id number] 1{packe Take 1 Univers vit 3-24 t} Packet by ity of 33-iron-fol 00:00: mouth [place] ic-dha 00 daily. Medical (SELECT-OB Branch + DHA) 29 mg iron-1 mg -250 mg combo pack Yes [id number] 1{packe Take 1 Univers vit 3-24 t} Packet by ity of 33-iron-fol 00:00: mouth [place] ic-dha 00 daily. Medical (SELECT-OB Branch + DHA) 29 mg iron-1 mg -250 mg combo pack Yes [id number] 1{packe Take 1 Univers vit 3-24 t} Packet by ity of 33-iron-fol 00:00: mouth [place] ic-dha 00 daily. Medical (SELECT-OB Branch + DHA) 29 mg iron-1 mg -250 mg combo pack Yes [id number] 1{packe Take 1 Univers vit 3-24 t} Packet by ity of 33-iron-fol 00:00: mouth [place] ic-dha 00 daily. Medical (SELECT-OB Branch + DHA) 29 mg iron-1 mg -250 mg combo pack Yes [id number] 1{packe Take 1 Univers vit 3-24 t} Packet by ity of 33-iron-fol 00:00: mouth [place] ic-dha 00 daily. Medical (SELECT-OB Branch + DHA) 29 mg iron-1 mg -250 mg combo pack Yes [id number] 1{packe Take 1 Univers vit 3-24 t} Packet by ity of 33-iron-fol 00:00: mouth [place] ic-dha 00 daily. Medical (SELECT-OB Branch + DHA) 29 mg iron-1 mg -250 mg combo pack Immunizations Ordered Filled Immunization Date Status Comments Sour e Immunization Name Name TD 2022-02-08 Completed University of 00:00:00 [facility] TDAP 2022-02-08 Completed University of 00:00: [facility] TDAP 2022-02-08 Completed University of 00:00:00 [facility] TDAP 2022-02-08 Completed University of 00:00:00 [facility] TDAP 2022-02-08 Completed University of 00:00:00 [facility] TDAP 2022-02-08 Completed University of 00:00:00 [facility] TDAP 2022-02-08 Completed University of 00:00:00 [facility] TDAP 2022-02-08 Completed University of 00:00:00 [facility] TDAP 2022-02-08 Completed University of 00:00:00 [facility] TDAP 2022-02-08 Completed University of 00:00:00 [facility] TDAP 2022-02-08 Completed University of 00:00:00 [facility] TDAP 2022-02-08 Completed University of 00:00:00 [facility] TDAP 2022-02-08 Completed University of 00:00:00 [facility] TDAP 2022-02-08 Completed University of 00:00:00 [facility] TDAP 2022-02-08 Completed University of 00:00:00 [facility] TDAP 2022-02-08 Completed University of 00:00:00 [facility] TDAP 2022-02-08 Completed University of 00:00:00 [facility] TDAP 2022-02-08 Completed University of 00:00:00 [facility] TDAP 2022-02-08 Completed University of 00:00:00 [facility] TDAP 2022-02-08 Completed University of 00:00:00 [facility] Tdap 2021-10-09 Completed [facility] 00:00:00 [facility] SARS-COV-2 COVID-19 2021-02-16 Completed Unive rsity of PFIZER VACCINE 00:00:00 [facility] SARS-COV-2 COVID-19 2021-02-16 Completed Unive rsity of PFIZER VACCINE 00:00:00 [facility] SARS-COV-2 COVID-19 2021-02-16 Completed Unive rsity of PFIZER VACCINE 00:00:00 [facility] SARS-COV-2 COVID-19 2021-02-16 Completed Unive rsity of PFIZER VACCINE 00:00:00 [facility] SARS-COV-2 COVID-19 2021-02-16 Completed Unive rsity of PFIZER VACCINE 00:00:00 [facility] SARS-COV-2 COVID-19 2021-02-16 Completed Unive rsity of PFIZER VACCINE 00:00:00 [facility] SARS-COV-2 COVID-19 2021-02-16 Completed Unive rsity of PFIZER VACCINE 00:00:00 [facility] SARS-COV-2 COVID-19 2021-02-16 Completed Unive rsity of PFIZER VACCINE 00:00:00 [facility] SARS-COV-2 COVID-19 2021-02-16 Completed Unive rsity of PFIZER VACCINE 00:00:00 [facility] SARS-COV-2 COVID-19 2021-02-16 Completed Unive rsity of PFIZER VACCINE 00:00:00 [facility] SARS-COV-2 COVID-19 2021-02-16 Completed Unive rsity of PFIZER VACCINE 00:00:00 [facility] SARS-COV-2 COVID-19 2021-02-16 Completed Unive rsity of PFIZER VACCINE 00:00:00 [facility] SARS-COV-2 COVID-19 2021-02-16 Completed Unive rsity of PFIZER VACCINE 00:00:00 [facility] SARS-COV-2 COVID-19 2021-02-16 Completed Unive rsity of PFIZER VACCINE 00:00:00 [facility] SARS-COV-2 COVID-19 2021-02-16 Completed Unive rsity of PFIZER VACCINE 00:00:00 [facility] SARS-COV-2 COVID-19 2021-02-16 Completed Unive rsity of PFIZER VACCINE 00:00:00 [facility] SARS-COV-2 COVID-19 2021-02-16 Completed Unive rsity of PFIZER VACCINE 00:00:00 [facility] SARS-COV-2 COVID-19 2021-02-16 Completed Unive rsity of PFIZER VACCINE 00:00:00 [facility] SARS-COV-2 COVID-19 2021-02-16 Completed Unive rsity of PFIZER VACCINE 00:00:00 [facility] SARS-COV-2 COVID-19 2021-02-16 Completed Unive rsity of PFIZER VACCINE 00:00:00 [facility] SARS-COV-2 COVID-19 2021-01-20 Completed Unive rsity of PFIZER VACCINE 00:00:00 [facility] SARS-COV-2 COVID-19 2021-01-20 Completed Unive rsity of PFIZER VACCINE 00:00:00 [facility] SARS-COV-2 COVID-19 2021-01-20 Completed Unive rsity of PFIZER VACCINE 00:00:00 [facility] SARS-COV-2 COVID-19 2021-01-20 Completed Unive rsity of PFIZER VACCINE 00:00:00 [facility] SARS-COV-2 COVID-19 2021-01-20 Completed Unive rsity of PFIZER VACCINE 00:00:00 [facility] SARS-COV-2 COVID-19 2021-01-20 Completed Unive rsity of PFIZER VACCINE 00:00:00 [facility] SARS-COV-2 COVID-19 2021-01-20 Completed Unive rsity of PFIZER VACCINE 00:00:00 [facility] SARS-COV-2 COVID-19 2021-01-20 Completed Unive rsity of PFIZER VACCINE 00:00:00 [place] [facility] SARS-COV-2 COVID-19 2021-01-20 Completed Unive rsity of PFIZER VACCINE 00:00:00 [facility] SARS-COV-2 COVID-19 2021-01-20 Completed Unive rsity of PFIZER VACCINE 00:00:00 [facility] SARS-COV-2 COVID-19 2021-01-20 Completed Unive rsity of PFIZER VACCINE 00:00:00 [facility] SARS-COV-2 COVID-19 2021-01-20 Completed Unive rsity of PFIZER VACCINE 00:00:00 [facility] SARS-COV-2 COVID-19 2021-01-20 Completed Unive rsity of PFIZER VACCINE 00:00:00 [facility] SARS-COV-2 COVID-19 2021-01-20 Completed Unive rsity of PFIZER VACCINE 00:00:00 [facility] SARS-COV-2 COVID-19 2021-01-20 Completed Unive rsity of PFIZER VACCINE 00:00:00 [facility] SARS-COV-2 COVID-19 2021-01-20 Completed Unive rsity of PFIZER VACCINE 00:00:00 [facility] SARS-COV-2 COVID-19 2021-01-20 Completed Unive rsity of PFIZER VACCINE 00:00:00 [facility] SARS-COV-2 COVID-19 2021-01-20 Completed Unive rsity of PFIZER VACCINE 00:00:00 [facility] SARS-COV-2 COVID-19 2021-01-20 Completed Unive rsity of PFIZER VACCINE 00:00:00 [facility] SARS-COV-2 COVID-19 2021-01-20 Completed Unive rsity of PFIZER VACCINE 00:00:00 [facility] Vital Signs Vital Name Observation Time Observation Value Comments Source Heart rate 2022-04-03 18:30:00 120 /min [facility] ty of [facility] Oxygen saturation in 2022-04-03 18:30:00 100 /min [facility] Arterial blood by [facility] Pulse oximetry Branch Systolic blood 2022-04-03 16:17:00 120 mm[Hg] Univer sity of pressure [facility] Diastolic blood 2022-04-03 16:17:00 71 mm[Hg] Unive rsity of pressure [place] [facility] Body temperature 2022-04-03 16:17:00 37 [place] [facility] ers[facility] [place] [facility] Respiratory rate 2022-04-03 16:17:00 20 /min Univ ers[facility] [place] [facility] Systolic blood 2022-04-02 20:33:00 122 mm[Hg] Univer sity of pressure [place] [facility] Diastolic blood 2022-04-02 20:33:00 77 mm[Hg] Unive rsity of pressure [place] [facility] Heart rate 2022-04-02 20:33:00 100 /min [facility] [place] [facility] Body temperature 2022-04-02 20:33:00 36.5 [place] [facility] [place] [facility] Respiratory rate 2022-04-02 20:33:00 17 /min Univ ers[facility] [place] [facility] Body height 2022-04-02 20:33:00 162.6 cm [facility] [place] [facility] Body weight 2022-04-02 20:33:00 89.086 kg [facility] [place] [facility] BMI 2022-04-02 20:33:00 33.71 kg/m2 [facility] [place] [facility] Systolic blood 2022-03-29 18:35:00 127 mm[Hg] Univer sity of pressure [place] [facility] Diastolic blood 2022-03-29 18:35:00 88 mm[Hg] Unive rsity of pressure [place] [facility] Heart rate 2022-03-29 18:35:00 99 /min [facility] [place] [facility] Body temperature 2022-03-29 18:35:00 36.5 [place] [facility] [place] [facility] Respiratory rate 2022-03-29 18:35:00 18 /min Univ ers[facility] [place] [facility] Body height 2022-03-29 18:35:00 162.6 cm [facility] [place] [facility] Body weight 2022-03-29 18:35:00 89.16 kg [facility] [place] [facility] BMI 2022-03-29 18:35:00 33.74 kg/m2 [facility] [place] [facility] Systolic blood 2022-03-26 15:42:00 125 mm[Hg] Univer sity of pressure [place] [facility] Diastolic blood 2022-03-26 15:42:00 81 mm[Hg] Unive rsity of pressure [place] [facility] Heart rate 2022-03-26 15:42:00 98 /min [facility] [place] [facility] Body temperature 2022-03-26 15:42:00 36.61 [facility] [place] [facility] Respiratory rate 2022-03-26 15:42:00 18 /min Univ [facility] [place] [facility] Body height 2022-03-26 15:42:00 162.6 cm [facility] [place] [facility] Body weight 2022-03-26 15:42:00 87.998 kg [facility] [place] [facility] BMI 2022-03-26 15:42:00 33.30 kg/m2 [facility] [place] [facility] Systolic blood 2022-03-22 18:15:00 124 mm[Hg] Univer sity of pressure [place] [facility] Diastolic blood 2022-03-22 18:15:00 80 mm[Hg] Unive rsity of pressure [place] [facility] Heart rate 2022-03-22 18:15:00 91 /min [facility] [place] [facility] Body temperature 2022-03-22 18:15:00 36.67 [place] [facility] [place] [facility] Respiratory rate 2022-03-22 18:15:00 20 /min [facility] [place] [facility] Body weight 2022-03-22 18:15:00 87 kg [facility] [place] [facility] BMI 2022-03-22 18:15:00 32.91 kg/m2 [facility] [place] [facility] Systolic blood 2022-03-19 20:53:00 130 mm[Hg] Univer sity of pressure [place] [facility] Diastolic blood 2022-03-19 20:53:00 89 mm[Hg] Unive rsity of pressure [place] [facility] Heart rate 2022-03-19 20:53:00 102 /min [facility] [place] [facility] Body temperature 2022-03-19 20:53:00 36.83 [facility] [place] [facility] Respiratory rate 2022-03-19 20:53:00 18 /min [facility] [place] [facility] Body weight 2022-03-19 20:53:00 87.816 kg [facility] [place] [facility] BMI 2022-03-19 20:53:00 33.21 kg/m2 [facility] Systolic blood 2022-03-15 18:55:00 136 mm[Hg] Univer sity of pressure [place] [facility] Diastolic blood 2022-03-15 18:55:00 83 mm[Hg] Unive rsity of pressure [place] [facility] Heart rate 2022-03-15 18:55:00 108 /min [facility] [place] [facility] Body temperature 2022-03-15 18:55:00 36.83 [place] [facility] [place] [facility] Respiratory rate 2022-03-15 18:55:00 18 /min [facility] [place] [facility] Body weight 2022-03-15 18:55:00 87.635 kg [facility] [place] [facility] BMI 2022-03-15 18:55:00 33.15 kg/m2 [facility] [place] [facility] Systolic blood 2022-03-12 19:44:00 130 mm[Hg] Univer sity of pressure [place] [facility] Diastolic blood 2022-03-12 19:44:00 80 mm[Hg] Unive rsity of pressure [place] [facility] Heart rate 2022-03-12 19:44:00 104 /min [facility] [place] [facility] Body temperature 2022-03-12 19:44:00 36.67 [facility] [place] [facility] Respiratory rate 2022-03-12 19:44:00 18 /min [facility] [place] [facility] Body weight 2022-03-12 19:44:00 88.996 kg [facility] [place] [facility] BMI 2022-03-12 19:44:00 33.66 kg/m2 [facility] [place] [facility] Systolic blood 2022-03-09 15:27:00 130 mm[Hg] Univer sity of pressure [place] [facility] Diastolic blood 2022-03-09 15:27:00 77 mm[Hg] Unive rsity of pressure [facility] Heart rate 2022-03-09 15:27:00 101 /min [facility] Body temperature 2022-03-09 15:27:00 36.72 [facility] [place] [facility] Respiratory rate 2022-03-09 15:27:00 18 /min [facility] [place] [facility] Body weight 2022-03-09 15:27:00 87.726 kg [facility] [place] [facility] BMI 2022-03-09 15:27:00 33.18 kg/m2 [facility] [place] [facility] Systolic blood 2022-03-08 16:30:00 121 mm[Hg] Univer [facility]ity of pressure [place] [facility] Diastolic blood 2022-03-08 16:30:00 79 mm[Hg] Unive rsity of pressure [place] [facility] Heart rate 2022-03-08 16:30:00 96 /min [facility]i ty of [facility] Oxygen saturation in 2022-03-08 16:30:00 100 /min University of Arterial blood by [facility] Pulse oximetry Branch Body temperature 2022-03-08 16:00:00 36.22 [place] [facility] [place] [facility] Respiratory rate 2022-03-08 16:00:00 19 /min Univ ersity of [facility] Body height 2022-03-08 16:00:00 162.6 cm [facility] Body weight 2022-03-08 16:00:00 88.86 kg [facility] BMI 2022-03-08 16:00:00 33.61 kg/m2 [facility] [place] [facility] Systolic blood 2022-03-05 18:32:00 118 mm[Hg] Univer sity of pressure [facility] Diastolic blood 2022-03-05 18:32:00 80 mm[Hg] Unive rsity of pressure [facility] Heart rate 2022-03-05 18:32:00 98 /min [facility] Body temperature 2022-03-05 18:32:00 36.39 [facility] [place] [facility] Respiratory rate 2022-03-05 18:32:00 18 /min [facility] [place] [facility] Body weight 2022-03-05 18:32:00 88.225 kg [facility] BMI 2022-03-05 18:32:00 33.39 kg/m2 [facility] Systolic blood 2022-03-01 19:43:00 120 mm[Hg] Univer sity of pressure [facility] Diastolic blood 2022-03-01 19:43:00 80 mm[Hg] Unive rsity of pressure [facility] Heart rate 2022-03-01 19:43:00 102 /min [facility] Body temperature 2022-03-01 19:43:00 36.67 [facility] Respiratory rate 2022-03-01 19:43:00 18 /min [facility] 2022-03-01 19:43:00 87.726 kg [facility] BMI 2022-03-01 19:43:00 33.20 kg/m2 [facility] Systolic blood 2022-02-14 14:40:00 124 mm[Hg] Univer sity of pressure [facility] Diastolic blood 2022-02-14 14:40:00 88 mm[Hg] Unive rsity of [facility] Heart rate 2022-02-14 14:40:00 100 /min [facility] Body temperature 2022-02-14 14:40:00 36.39 [facility] 2022-02-14 14:40:00 20 /min [facility] Body height 2022-02-14 14:40:00 162.6 cm [facility] Body weight 2022-02-14 14:40:00 88.14 kg [facility] BMI 2022-02-14 14:40:00 33.35 kg/m2 [facility] Systolic blood 2021-10-14 22:48:11 129 mm[Hg] [facility] Di[facility] blood 2021-10-14 22:48:11 76 mm[Hg] [facility] pressure Heart rate 2021-10-14 22:48:11 100 /min [facility] Body temperature 2021-10-14 22:48:11 36.78 [facility] Respiratory rate 2021-10-14 22:48:11 18 /min [facility] Oxygen saturation in 2021-10-14 22:48:11 100 /min [facility] Arterial blood by Pulse oximetry Body height 2021-10-09 22:38:[address] [facility] Body weight 2021-10-09 22:38:[address] [facility] BMI 2021-10-09 22:38:00 35.36 kg/m2 [facility] Procedures Procedure Date / Time Performed Performing Clinician Sour e SECOND AND THIRD 2022-04-03 15:13:00 Ramon Estrella [facility] TRIMESTER ULTRASOUND Medical [facility] HEPATITIS B SURFACE 2022-04-03 02:20:00 Armida [facility] ANTIGEN [facility] HIV 1/2 AG-AB WITH 2022-04-03 02:20:00 Armida [facility] REFLEX [facility] GALV ONLY - SYPHILIS 2022-04-03 02:20:00 Armida [facility] IGG/IGM [facility] HB ABO GROUPING 2022-04-03 02:11:00 Jerry Perez [facility] NON-STRESS TEST 2022-04-02 21:27:43 Nancy Cavanaugh [facility] POCT URINALYSIS 2022-04-02 00:00:00 Ramon Estrella [facility] NON-STRESS TEST 2022-03-29 19:54:52 Anne Brown [facility] POCT URINALYSIS 2022-03-29 18:38:00 Ramon Estrella [facility] POCT URINALYSIS 2022-03-29 18:37:00 Ramon Estrella [facility] NON-STRESS TEST 2022-03-22 18:59:22 Thania Colon [facility] POCT URINALYSIS 2022-03-22 00:00:00 Ramon Estrella [facility] NON-STRESS TEST 2022-03-19 21:48:19 S[facility] POCT URINALYSIS 2022-03-19 21:13:00 Ramon Estrella [facility] POCT URINALYSIS 2022-03-15 19:38:00 Ramon Estrella [facility] NON-STRESS TEST 2022-03-15 19:11:57 Ramon Estrella [facility] NON-STRESS TEST 2022-03-12 20:12:26 Ramon Estrella [facility] POCT URINALYSIS 2022-03-12 19:46:00 Ramon Estrella [facility] NON-STRESS TEST 2022-03-09 17:01:12 Ramon Estrella Uni [facility] SECOND AND THIRD 2022-03-09 16:33:00 Ramon Estrella [facility] TRIMESTER ULTRASOUND [facility] POCT URINALYSIS 2022-03-09 15:38:00 Ramon Estrella [facility] CONSENT/REFUSAL FOR 2022-03-08 05:01:00 Doctor Unassigned, No Un [facility] DIAGNOSIS AND Name [facility] TREATMENT NON-STRESS TEST 2022-03-05 19:08:38 Ramon Estrella [facility] POCT URINALYSIS 2022-03-05 00:00:00 Ramon Estrella [facility] POCT URINALYSIS 2022-03-01 19:44:00 Ramon Estrella [facility] GROCERY ASSOCIATE CLINIC 2022-02-16 05:01:00 [facility] ULTR[facility] Name [facility] POCT URINALYSIS 2022-02-14 14:43:00 Ramon Estrella [facility] SUTURE REMOVAL 2021-10-14 23:09:[address] [facility] [place] RESUPERF WND FACE 2021-10-09 22:44:10 Jeferson French [facility] <2.5 CM [place] Plan of Care Planned Activity Planned Date Details Comments Source Encounters Start End Encounter Admission Attending Care Care Encounter Source Date/Time Date/Time Type Type Clinicians Facility Department ID 2022-04-03 Outpatient P [facility] ARMAAN [id number] Univers 13:57:53 [facility] 2022-04-03 2022-04-[address] [facility] [id number] Univers 14:30:00 14:30:00 [facility] 2022-04-02 2022-04-03 [facility] TERRA Kurtz 1.2.938.471 [id number] Univers 18:04:00 13:57:00 Encounter Álvaro Lee LIDA 350.1.13.10 ity of HOSPITAL 4.2.7.2.686 [place] [id number] [facility] [address] 2022-04-02 2022-04-03 Outpatient P KURTZ [facility] ARMAAN [id number] Univers 18:04:00 13:57:00 ÁLVARO [facility] 2022-04-03 2022-04-03 [employer] [facility] Us Room UNIVERSIT 1 .2.840.114 [id number] Univers 09:45:00 10:33:40 Visit Álvaro Kurtz [facility] 350.1.13. 10 ity of CLINICS 4.2.7.2.686 [place] [id number] [facility] [address] 2022-04-02 2022-04-02 Outpatient R AKINPATTIE, [facility] [id number] Univers 15:45:00 16:27:13 NANCY burgos o f [facility] 2022-04-02 2022-04-02 Routine Akinpe, [facility] 1.2.442.581 [id number] Univers 15:45:00 16:27:13 Nancy Durán GROCERY ASSOCIATE 350.1.13.10 ity of Visit REGIONAL 4.2.7.2.686 [place] as MATERNAL [id number] Med ical & CHILD [address] [place] [address] 2022-03-29 2022-03-[address] [facility] [id number] Univers 13:30:00 14:13:50 ANNE burgos [facility] 2022-03-29 2022-03-29 Routine Risk, Yma-Eqbxt-Le/High [facility] 1. 2.840.114 [id number] Univers 13:30:00 14:13:50 Anne Brown GROCERY ASSOCIATE 350.1.13.10 ity of Visit REGIONAL 4.2.7.2.686 [place] as MATERNAL [phone] [facility] ical & CHILD [address] [place] [address] 2022-03-26 2022-03-26 Office Faculty, Panchito Bergchmikie [facility] 1.2 .840.114 [id number] Univers 10:30:00 11:18:56 Visit HectorIssapeyman Reyez GROCERY ASSOCIATE 350.1.13.10 ity of REGIONAL 4.2.7.2.686 [place] as MATERNAL [id number] [facility] [address] [place] [address] 2022-03-26 2022-03-26 [facility] [id number] Univers 10:30:00 11:18:56 ILAN [facility] 2022-03-22 2022-03-22 Routine Risk, Whx-Jftml-Ef/High [facility] 1. 2.840.114 [id number] Univers 15:30:00 15:30:00 Colon Thania Tai GROCERY ASSOCIATE 350.1.13.10 ity of Visit REGIONAL 4.2.7.2.686 [place] as MATERNAL [id number] [facility] & CHILD [address] [place] [address] 2022-03-22 2022-03-[address] [facility] [id number] Univers 15:30:00 13:59:11 THANIA [facility] 2022-03-19 2022-03-19 Outpatient R [facility] [id number] Univers 15:30:00 16:46:31 MARIA ANTONIA SULEMA [facility] 2022-03-19 2022-03-19 Routine Provider, Ang-Rmchp Temp [facility] 1 .2.840.114 [id number] Univers 15:30:00 16:46:31 PremMitesh mazariegosah GROCERY ASSOCIATE 350.1.13.10 ity of Visit REGIONAL 4.2.7.2.686 [place] as MATERNAL [id number] [facility] & CHILD [address] [place] [address] 2022-03-15 2022-03-15 Routine Sameer [facility] 1.2.840.114 [id number] Univers 13:45:00 14:31:14 Rosmarikanda R GROCERY ASSOCIATE 350.1.13.10 ity of Visit REGIONAL 4.2.7.2.686 [place] as MATERNAL [id number] [facility] [address] [place] [address] 2022-03-15 2022-03-[address] [facility] [id number] Univers 13:45:00 14:31:14 ROSMARIKANDA itmuna o f [facility] 2022-03-12 2022-03-12 Routine [facility] 1.2.840.114 [id number] Univers 14:30:00 15:12:06 Francescanda R GROCERY ASSOCIATE 350.1.13.10 ity of Visit REGIONAL 4.2.7.2.686 [place] as MATERNAL [id number] Med ical & CHILD [address] [place] [address] 2022-03-12 2022-03-12 Outpatient R ESTRELLA, [facility] [id number] Univers 14:30:00 15:12:06 FRANCESCANDRobert eladiomuna o fernando [facility] 2022-03-09 2022-03-09 [employer] Ultrasound, [facility] 1.2 .840.114 [id number] Univers 11:15:00 12:00:00 Visit Melanie Estrellakirby R GROCERY ASSOCIATE 350.1.13.10 ity of Thor Suh REGIONAL 4.2.7.2.686 [place] MATERNAL [phone] Med ical & CHILD 369 [facility] 2022-03-09 2022-03-09 Routine [facility] 1.2.840.114 [id number] Univers 10:15:00 10:55:15 Francescanda R GROCERY ASSOCIATE 350.1.13.10 ity of Visit REGIONAL 4.2.7.2.686 [place] as MATERNAL [id number] [facility] ical & CHILD [address] [place] [address] 2022-03-09 2022-03-09 [facility] [id number] Univers 10:15:00 10:55:15 ROSMARIKANDA loretta o [facility] 2022-03-08 2022-03-08 Outpatient P WATSON CARRASCO [facility] ARMAAN [id number] Univers 10:35:00 11:59:00 WATSON CARRASCO itmuna [facility] 2022-03-08 2022-03-08 [facility] TERRA Carrasco 1.2.840.114 [id number] Univers 10:35:00 11:59:00 Encounter Watson GONSALES 350.1.13.10 ity of [facility] 4.2.7.2.686 [place] as [id number] [address] 2022-03-05 2022-03-05 [facility] [id number] Univers 13:45:00 14:08:26 ROSHUNDA ity o [facility] 2022-03-05 2022-03-05 Routine [facility] 1.2.840.114 [id number] Univers 13:45:00 14:08:26 Roshunda R GROCERY ASSOCIATE 350.1.13.10 ity of Visit [facility] 4.2.7.2.686 [place] as MATERNAL [id number] [facility] [address] [place] [address] 2022-03-01 2022-03-01 [facility] [id number] Univers 14:30:00 15:03:20 ROSHUNDA ity o [facility] 2022-03-01 2022-03-01 Routine [facility] 1.2.840.114 [id number] Univers 14:30:00 15:03:20 Roshunda R GROCERY ASSOCIATE 350.1.13.10 ity of Visit [facility] 4.2.7.2.686 [place] as MATERNAL [id number] [facility] & CHILD [address] [place] [address] 2022-02-26 2022-02-26 Telemedici Faculty, Panchito [facility] 1.2.840.114 [id number] Univers 09:30:00 10:00:00 ne Visit Yoni Light GROCERY ASSOCIATE 350.1 .13.10 ity of REGIONAL 4.2.7.2.686 [place] as MATERNAL [id number] [facility] [address] [place] [address] 2022-02-26 2022-02-[address] [facility] [id number] Univers 09:30:00 09:30:00 ity of [facility] 2022-02-26 2022-02-[address] [facility] [id number] Univers 09:30:00 09:30:00 CHASEY ity [facility] 2022-02-22 2022-02-[address] [facility] [id number] Univers 14:30:00 14:30:00 RAMON itmuna o f [facility] 2022-02-16 2022-02-16 [employer] Ultrasound, Ajit [facility] 1.2 .840.114 [id number] Univers 10:30:00 12:27:57 Visit Harshal Regalado GROCERY ASSOCIATE 350.1.13.10 ity of [facility] 4.2.7.2.686 [place] as MATERNAL [id number] Med ical & CHILD [address] [place] [address] 2022-02-16 2022-02-[address] [facility] [id number] Univers 10:30:00 10:30:00 ity [facility] 2022-02-16 2022-02-16 Outpatient P HARSHAL REGALADO [facility] [id number] Univers 10:30:00 10:30:00 HARSHAL REGALADO [facility] 2022-02-16 2022-02-16 Orders Doctor TERRA 1.2.840.114 [id number] Univers 00:00:00 00:00:00 Only Unassigned, ILDA 350.1.13.10 ity of Millard [facility] 4.2.7.2.686 [place] [id number] [address] 2022-02-14 2022-02-[address] [facility] [id number] Univers 09:15:00 10:06:36 NANCY burgos o f [facility] 2022-02-14 2022-02-14 Routine Afshan [facility] 1.2.725.266 [id number] Univers 09:15:00 10:06:36 Nancy Durán GROCERY ASSOCIATE 350.1.13.10 ity of Visit [facility] 4.2.7.2.686 [place] as MATERNAL [id number] Med ical & CHILD [address] [place] [address] 2022-02-14 2022-02-14 Shadi Estrella CTLUZ 1.2.050.138 [id number] Univers 00:00:00 00:00:00 Roshunda R GROCERY ASSOCIATE 350.1.13.10 ity of REGIONAL 4.2.7.2.686 [place] as MATERNAL [id number] [facility] [address] [place] [address] 2022-02-14 2022-02-14 Telephone Estrella [facility] 1.2.308.633 [id number] Univers 00:00:00 00:00:00 Roshunda R GROCERY ASSOCIATE 350.1.13.10 ity of REGIONAL 4.2.7.2.686 [place] as MATERNAL [id number] [facility] [address] [place] [address] 2022-02-08 2022-02-08 [facility] [id number] Univers 14:30:00 15:54:15 ROSMARIKANDA ity o f [facility] 2022-02-08 2022-02-08 Routine [facility] 1.2.840.114 [id number] Univers 14:30:00 15:54:15 Rosnda R GROCERY ASSOCIATE 350.1.13.10 ity of Visit REGIONAL 4.2.7.2.686 [place] as MATERNAL [id number] [facility] & [address] 2022-02-08 2022-02-[address] [facility] [id number] Univers 14:30:00 14:30:00 ROSNDA ity o f [facility] 2022-02-08 2022-02-08 Orders Doctor TERRA 1.2.840.114 [id number] Univers 00:00:00 00:00:00 Only Unassigned, ILDA 350.1.13.10 ity of [place] [facility] 4.2.7.2.686 [place] as [id number] [address] 2022-02-03 2022-02-03 Outpatient X SAKINA IRWIN [facility] ARMAAN [id number] Univers 14:11:00 16:45:00 ity of [facility] 2022-02-03 2022-02-03 Emergency Magdalena Charles [facility] 1.2.840 .114 [id number] Univers 14:11:00 16:45:00 Sakina Irwin [facility] 350.1.13.10 ity of [place] 4.2.7.2.686 [place] [facility] [id number] [facility] [address] 2022-02-03 2022-02-03 Nurse TERRA Lomeli 1.2.840.114 [id number] Univers 00:00:00 00:00:00 Triage Thania ILDA 350.1.13.10 it y of HOSPITAL 4.2.7.2.686 [place] as [id number] [facility] [address] 2022-02-03 2022-02-03 Orders Doctor TERRA 1.2.840.114 [id number] Univers 00:00:00 00:00:00 Only Unassigned, ILDA 350.1.13.10 ity of Millard [facility] 4.2.7.2.686 [place] as [phone] [facility] [address] 2022-01-22 2022-01-22 Telephone [facility] 1.2.840.114 [id number] Univers 00:00:00 00:00:00 Nancy C GROCERY ASSOCIATE 350.1.13.10 ity of REGIONAL 4.2.7.2.686 [place] as MATERNAL [id number] Med ical & CHILD [address] [place] [address] 2022-01-19 2022-01-[address] [facility] [id number] Univers 13:00:00 13:55:42 NANCY burgos o f [facility] 2022-01-19 2022-01-19 Routine [facility] 1.2.652.963 [id number] Univers 13:00:00 13:55:42 Nancy C GROCERY ASSOCIATE 350.1.13.10 ity of Visit [facility] 4.2.7.2.686 [place] as MATERNAL [id number] Med ical & CHILD [address] [place] [address] 2022-01-10 2022-01-[address] [facility] [id number] Univers 11:00:00 11:00:00 RAMON burgos o f [facility] 2022-01-08 2022-01-08 Telemedici Faculty, Panchito [facility] 1.2.840.114 [id number] Univers 09:15:00 09:45:00 ne Visit Watson Carrasco GROCERY ASSOCIATE 350.1.13.10 ity of REGIONAL 4.2.7.2.686 [place] as MATERNAL [id number] [facility] [address] [place] [address] 2022-01-08 2022-01-[address] [facility] [id number] Univers 09:15:00 09:15:00 ity of [facility] 2022-01-08 2022-01-08 Outpatient R WATSON CARRASCO [facility] [id number] Univers 09:15:00 09:15:00 WATSON CARRASCO [facility] 2022-01-08 2022-01-08 Telephone Sameer [facility] 1.2.260.552 [id number] Univers 00:00:00 00:00:00 Ramon R GROCERY ASSOCIATE 350.1.13.10 ity of [facility] 4.2.7.2.686 [place] as MATERNAL [id number] [facility] & [address] 2021-12-19 2021-12-19 Abstract [facility] 1.2.840.114 [id number] Univers 00:00:00 00:00:00 Jacksona R GROCERY ASSOCIATE 350.1.13.10 ity of [facility] 4.2.7.2.686 [place] as MATERNAL [id number] [facility] & [address] 2021-12-19 2021-12-19 Abstract [facility] 1.2.840.114 [id number] Univers 00:00:00 00:00:00 Melanienda R GROCERY ASSOCIATE 350.1.13.10 ity of [facility] 4.2.7.2.686 [place] as MATERNAL [id number] [facility] & CHILD [address] [place] [address] 2021-12-15 2021-12-[address] [facility] [id number] Univers 15:30:00 16:18:46 NANCY burgos o f [facility] 2021-12-15 2021-12-15 Routine [facility] 1.2.204.340 [id number] Univers 15:30:00 16:18:46 Nancy C GROCERY ASSOCIATE 350.1.13.10 ity of Visit REGIONAL 4.2.7.2.686 [place] as MATERNAL [id number] [facility] & [address] 2021-12-15 2021-12-15 [employer] [facility]trasound, [facility] 1.2 .840.114 [id number] Univers 14:15:00 16:03:46 Visit Watson Carrasco GROCERY ASSOCIATE 350.1.13.10 ity of [facility] 4.2.7.2.686 [place] as MATERNAL [id number] [facility] & CHILD [address] [place] [address] 2021-12-15 2021-12-15 Outpatient P WATSON CARRASCO [facility] [id number] Univers 14:15:00 16:03:46 [facility]SON CARRASCOUT [facility] 2021-12-15 2021-12-15 Outpatient P WATSON CARRASCO [facility] [id number] Univers 14:15:00 14:15:00 WATSON CARRASCO [facility] 2021-12-15 2021-12-15 Telephone [facility] 1.2.840.114 [id number] Univers 00:00:00 00:00:00 Nancy C GROCERY ASSOCIATE 350.1.13.10 ity of [facility] 4.2.7.2.686 [place] as MATERNAL [id number] [address] 2021-12-14 2021-12-14 Emergency X [facility] ERT [id number] Univers 18:33:00 20:08:00 LEEANNA [facility] 2021-12-14 2021-12-[address] [facility] 1.2.322.352 [id number] Univers 18:33:00 20:08:00 Leeanna BLUM 350.1.13.10 i ty [facility] 4.2.7.2.686 [id number] [address] 2021-12-14 2021-12-14 Orders Doctor ELLISON 1.2.840.114 [id number] Univers 00:00:00 00:00:00 Only Unassigned, ILDA 350.1.13.10 ity of Millard [facility] 4.2.7.2.686 [place] as [id number] [address] 2021-12-14 2021-12-14 Telephone Afshan [facility] 1.2.840.114 [id number] Univers 00:00:00 00:00:00 Nancy C GROCERY ASSOCIATE 350.1.13.10 ity of [facility] 4.2.7.2.686 [place] as MATERNAL [id number] [facility] ical & CHILD [address] [place] [address] 2021-11-23 2021-11-[address] [facility] [id number] Univers 13:30:00 13:30:00 ity [facility] 2021-11-23 2021-11-[address] [facility] [id number] Univers 10:30:00 11:24:55 THANIA burgos [facility] 2021-11-23 2021-11-23 Routine Risk, Ait-Puwxp-Yp/High [facility] 1. 2.840.114 [id number] Univers 10:30:00 11:24:55 ColonThania farias GROCERY ASSOCIATE 350.1.13.10 ity of Visit REGIONAL 4.2.7.2.686 [place] as MATERNAL [id number] [facility] & CHILD [address] [place] [address] 2021-11-06 2021-11-06 Telemedici Faculty, Panchito Gamino [facility] 1.2.840.114 [id number] Univers 10:30:00 11:00:00 ne Visit Thor Suh GROCERY ASSOCIATE 350.1.13.10 ity of REGIONAL 4.2.7.2.686 [place] as MATERNAL [id number] [facility] [address] [place] [address] 2021-11-06 2021-11-[address] [facility] [id number] Univers 10:30:00 10:30:00 THOR ity [facility] 2021-11-02 2021-11-[address] [facility] [id number] Univers 13:30:00 13:30:00 ity [facility] 2021-11-02 2021-11-[address] [facility] [id number] Univers 10:00:00 11:00:40 ANNE ity of [facility] 2021-11-02 2021-11-02 Routine Risk, Jyh-Ilizs-Yz/High [facility] 1. 2.840.114 [id number] Univers 10:00:00 11:00:40 Anne Brown K GROCERY ASSOCIATE 350.1.13.10 ity of Visit REGIONAL 4.2.7.2.686 [place] as MATERNAL [id number] Med ical & CHILD [address] [place] [address] 2021-11-01 2021-11-01 Telephone [facility] 1.2.802.047 [id number] Univers 00:00:00 00:00:00 Rosjaymiea R GROCERY ASSOCIATE 350.1.13.10 ity of REGIONAL 4.2.7.2.686 [place] as MATERNAL [id number] [facility] [address] [place] [address] 2021-10-26 2021-10-26 Telephone Radha [facility] 1.2.826.239 [id number] Univers 00:00:00 00:00:00 Patient GROCERY ASSOCIATE 350.1.13.10 it y of Does Not REGIONAL 4.2.7.2.686 [place] MATERNAL [id number] Med ical & CHILD [address] [place] [address] 2021-10-26 2021-10-26 Telephone Sameer [facility] 1.2.003.259 [id number] Univers 00:00:00 00:00:00 Jacksona R GROCERY ASSOCIATE 350.1.13.10 ity of REGIONAL 4.2.7.2.686 [place] as MATERNAL [id number] [facility] ical & CHILD [address] [place] [address] 2021-10-20 2021-10-[address] [facility] [id number] Univers 10:30:00 11:08:09 ROSMARIKANDA ity o f [facility] 2021-10-20 2021-10-20 Routine [facility] 1.2.840.114 [id number] Univers 10:30:00 11:08:09 Roshunda R GROCERY ASSOCIATE 350.1.13.10 ity of Visit REGIONAL 4.2.7.2.686 [place] as MATERNAL [id number] Med ical & CHILD [address] [place] [address] 2021-10-16 2021-10-16 Telemedici Myrtle, [facility]anch[facility] 1.2.840.114 [id number] Univers 10:00:00 10:30:00 ne Visit Yoni Light GROCERY ASSOCIATE 350.1 .13.10 ity of REGIONAL 4.2.7.2.686 [place] as MATERNAL [id number] Med ical & CHILD [address] [place] [address] 2021-10-16 2021-10-[address] [facility] [id number] Univers 10:00:00 10:00:00 [facility] 2021-10-14 2021-10-14 Emergency June, 1.2.840.1 [id number] Methodi 17:43:00 18:16:00 Jin [place] [address]5431.1.[address] 3.430.2.7 Hospit a .3.296605 l .8 2021-10-14 2021-10-14 Emergency [id number] 6544 [place] 00:00:00 00:00:[address] 2021-10-14 2021-10-14 Travel 1.2.840.1 1.2.451.464 [id number] [id number] Methodi 00:00:00 00:00:[address] 3.430.2.7 0.2.7.3.698 Ho spita .3.580001 084.8 l .8 2021-10-09 2021-10-09 Emergency Gillian, 1.2.840.1 [id number] 21 [id number] Methodi 17:36:00 18:19:[address] 3.430.2.7 Hospit a .3.811211 l .8 2021-10-09 2021-10-09 Emergency SCHEMIDT, [facility] [id number] 2671 [place] 00:00:00 00:00:[address] 2021-10-09 2021-10-09 Travel 1.2.840.1 1.2.213.364 [id number] Methodi 00:00:00 00:00:[address] 3.430.2.7 0.2.7.3.698 Ho spita .3.551862 084.8 l .8 2021-10-06 2021-10-[address] [facility] [id number] Univers 10:30:00 11:12:05 RAMON burgos o f [facility] 2021-10-06 2021-10-06 [facility] 1.2.840.114 [id number] Univers 10:30:00 11:12:05 Ramon Chapin GROCERY ASSOCIATE 350.1.13.10 ity of Visit REGIONAL 4.2.7.2.686 [place] as MATERNAL [id number] Med ical & CHILD [address] [place] [address] 2021-09-29 2021-09-29 [facility] 1.2 .840.114 [id number] Univers 08:30:00 08:45:00 Visit Ramon Estrella GROCERY ASSOCIATE 350.1.13.10 ity of REGIONAL 4.2.7.2.686 [place] as MATERNAL [id number] Med ical & CHILD [address] [place] [address] 2021-09-29 2021-09-29 [id number] Univers 08:30:00 08:30:00 RAMON itmuna o f [facility] 2021-09-22 2021-09-22 [facility] 1.2 .840.114 [id number] Univers 10:00:00 10:15:00 Visit Nancy Cavanaugh GROCERY ASSOCIATE 350.1.13. 10 ity of REGIONAL 4.2.7.2.686 [place] as MATERNAL [id number] Med ical & CHILD [address] [place] [address] 2021-09-22 2021-09-22 Outpatient R AFSHAN, [facility] [id number] Univers 10:00:00 10:04:54 NANCY burgos o [facility] 2021-09-18 2021-09-18 [employer], [facility] 1.2.840.114 [id number] Univers 11:00:00 11:15:00 ne Visit Ilan Monreal GROCERY ASSOCIATE 350.1.13.10 ity of REGIONAL 4.2.7.2.686 [place] as MATERNAL [id number] [facility] [address] [place] [address] 2021-09-18 2021-09-[address] [facility] [id number] Univers 11:00:00 11:00:00 [facility] 2021-09-18 2021-09-18 [facility] [id number] Univers 11:00:00 11:00:00 ILAN [facility] 2021-09-18 2021-09-[address] [facility] [id number] Univers 11:00:00 11:00:00 [facility] 2021-09-16 2021-09-16 [facility] [id number] Univers 00:00:00 00:00:00 Ramon Chapin GROCERY ASSOCIATE 350.1.13.10 ity of REGIONAL [id number] [place] as MATERNAL [phone] [facility] [address] [place] [address] 2021-09-15 2021-09-15 [employer] 1, [facility] Room [facility] 1.2. [id number] [id number] Univers 15:30:00 15:50:07 Visit Gerson Rose GROCERY ASSOCIATE 350.1.13.10 ity of REGIONAL [id number] [place] as MATERNAL [phone] [facility] ical & CHILD [address] [facility] 2021-09-15 2021-09-[address] [facility] [id number] Univers 15:30:00 15:30:00 GERSON reyez [facility] 2021-09-15 2021-09-[address] [facility] [id number] Univers 15:30:00 15:30:00 ity of [facility] 2021-09-15 2021-09-15 Nurse Visit, Ang-Rmchp Nurse [facility] 1.2 .[id number] [id number] Univers 14:00:00 14:00:00 Visit Gerson Rose GROCERY ASSOCIATE 350.1.13.10 ity of REGIONAL [id number] [place] as MATERNAL [phone] [facility] ical & CHILD [address] [place] [address] 2021-09-15 2021-09-[address] [facility] [id number] Univers 14:00:00 09:59:01 GERSON ity o f [facility] 2021-09-11 2021-09-11 Telephone [facility] [id number] Univers 00:00:00 00:00:00 Roshunda R GROCERY ASSOCIATE 350.1.13.10 ity of REGIONAL [id number] [place] as MATERNAL [phone] [facility] & CHILD [address] [place] [address] 2021-09-11 2021-09-11 [facility] [id number] Univers 00:00:00 00:00:00 Roshunda R GROCERY ASSOCIATE 350.1.13.10 ity of REGIONAL 4.2.7.2.686 [place] as MATERNAL [phone] [facility] [address] [place] [address] 2021-09-11 2021-09-11 [facility] [id number] Univers 00:00:00 00:00:00 Roshunda R GROCERY ASSOCIATE 350.1.13.10 ity of REGIONAL 4.2.7.2.686 [place] as MATERNAL [phone] [facility] & CHILD [address] [place] [address] 2021-09-07 2021-09-07 [facility] [id number] Univers 14:00:00 16:07:57 Roshunda R GROCERY ASSOCIATE 350.1.13.10 ity of Visit REGIONAL 4.2.7.2.686 [place] as MATERNAL [phone] [facility] ical & CHILD [address] [place] [address] 2021-09-07 2021-09-[address] [facility] [id number] Univers 14:00:00 16:07:57 RAMON burgos o [facility] 2021-09-07 2021-09-[address] [facility] [id number] Univers 14:00:00 16:07:57 RAMON burgos o fernando [facility] 2021-09-07 2021-09-[address] [facility] [id number] Univers 14:00:00 16:07:57 RAMON burgos o [facility] 2021-09-07 2021-09-07 Initial [facility] [id number] Univers 14:00:00 14:30:00 Francescanda R GROCERY ASSOCIATE 350.1.13.10 ity of Visit REGIONAL [id number] [place] as MATERNAL [phone] [facility] ical & CHILD [address] [place] [address] 2021-09-07 2021-09-[address] [facility] [id number] Univers 14:00:00 14:00:00 RAMON burgos o [facility] 2020-11-03 2020-11-03 Outpatient [facility] [id number] Memoria 10:40:00 10:40:00 13 dorothea Holder 2020-11-03 2020-11-03 Outpatient [facility] [id number] Memoria 10:40:00 10:40:00 13 dorothea Holder 2019-09-25 2019-09-25 Outpatient [facility]IE [facility] [id number] Memoria 13:30:00 13:30:00 12 dorothea Holder 2019-09-25 2019-09-25 Outpatient [facility]IE [facility] [id number] Memoria 13:30:00 13:30:00 11 dorothea Holder 2019-09-25 2019-09-25 Outpatient MHIE [facility] [id number] Memoria 13:30:00 13:30:00 12 l Gallo 2019-09-25 2019-09-25 Outpatient MHIE [facility] [id number] Memoria 13:30:00 13:30:00 11 l Ransom 2019-09-16 2019-09-16 Outpatient MHIE [facility] [id number] Memoria 14:10:00 14:10:00 08 l Ransom 2019-09-16 2019-09-16 Outpatient MHIE [facility]IE [id number] Memoria 14:10:00 14:10:00 08 l Gallo 2019-09-14 2019-09-14 Outpatient MHIE [facility] [id number] Memoria 10:20:00 10:20:00 10 l Ransom 2019-09-14 2019-09-14 Outpatient MHIE [facility] [id number] Memoria 10:20:00 10:20:00 10 l Ransom 2019-09-11 2019-09-11 Outpatient MHIE MHIE [id number] Memoria 14:50:00 14:50:00 09 l Ransom 2019-09-11 2019-09-11 Outpatient MHIE MHIE [id number] Memoria 14:50:00 14:50:00 09 l Gallo 2019-09-01 2019-09-01 Outpatient MHIE [facility]IE [id number] Memoria 11:00:00 11:00:00 07 l Gallo 2019-09-01 2019-09-01 Outpatient MHIE [facility]IE [id number] Memoria 11:00:00 11:00:00 07 l Gallo 2019-08-19 2019-08-19 Outpatient MHIE [facility] [id number] Memoria 13:15:00 13:15:00 06 l Ransom 2019-08-19 2019-08-19 Outpatient MHIE MHIE [id number] Memoria 13:15:00 13:15:00 06 l Ransom 2019-04-07 2019-04-07 Outpatient MHIE MHIE [id number] Memoria 13:15:00 13:15:00 05 l Ransom 2019-04-07 2019-04-07 Outpatient MHIE MHIE [id number] Memoria 13:15:00 13:15:00 05 l Gallo 2018-11-26 2018-11-26 [id number] Memoria 14:35:00 14:35:00 04 dorothea Holder 2018-11-26 2018-11-26 Outpatient [facility] ARU[facility] [id number] Memoria 14:35:00 14:35:00 04 dorothea Holder 2018-08-19 2018-08-19 Outpatient [facility] AR[facility] [id number] Memoria 08:15:00 08:15:00 03 dorothea Holder 2018-08-19 2018-08-19 [facility] [id number] Memoria 08:15:00 08:15:00 03 dorothea Holder 2018-05-28 2018-05-28 [facility] [id number] Memoria 16:30:00 16:30:00 02 dorothea Holder 2018-05-28 2018-05-28 Outpatient [facility]UNA ARUNA [id number] Memoria 16:30:00 16:30:00 02 dorothea Holder 2018-05-28 2018-05-28 [facility] [id number] Memoria 11:15:00 11:15:00 01 dorothea Holder 2018-05-28 2018-05-28 [facility] [id number] Memoria 11:15:00 11:15:00 01 dorothea Holder Results Test Description Test Time Test Comments Results Result Comments Source GALV ONLY - SYPHILIS IGG/IGM 2022-04-03 15:11:01 Test Item Value Reference Range Interpretation Comme nts Syphilis IgG/IgM (test code = [place] [address]-7) BK (test code = BK) Non-reactive - No serologic evidence of T. pallidum infection. Cannot exclude incubating or early syphilis. Submit a second specimen in 2-4 weeks if syphilis is clinically suspected. Equivocal - Further testing to follow. Reactive - Further testing to follow. Lab Interpretation (test code = Abnormal 03913-2) [facility] WITH [id number] 04:45:47 Test Item Value Reference Range Interpretation Comments HIV Negative Negative Semi-quantitative (test code = 02872-8) BK (test code = Non-reactive for HIV-1 BK) antigen and HIV-1/HIV-2 antibodies. ?No laboratory evidence of HIV infection. ?Repeat in 2-4 weeks if acute HIV infection is suspected. [facility] SURFACE [id number] 03:46:19 Test Item Value Reference Range Interpretation Comments HBsAg Semi-Quantitative (test code = Negative Negative 5195-3) [facility] Screen - ONCE [id number] 03:30:08 Test Item Value Reference Range Interpretation Comments ABO & RH (test AB POSITIVE Performed at [facility] code = 20) Laboratory Serv [facility]3 [address] [facility] s [address]Aawf Free: [phone] A No. [id number] IAT (test code = Negative Performed a t [facility] 1185) Laboratory Serv [facility]3 [facility] s [address]Nhqo Free: [phone] A No. [id number] [facility] W SPECIFIC [id number] 20:36:00 Test Item Value Reference Range Interpretation Comments POCT U SP GRAV (test code = . 1.005-1.025 3255) POCT PH U (test code = 3254) . 5-8 POCT U LEUK EST (test code = . Negative - Negative 3263) POCT U NIT (test code = 3262) . Negative - Negative POCT U PROT (test code = 3259) negative Negative - Negative POCT U GLU (test code = 3256) negative Negative - Negative POCT U KETONE (test code = 3258) . Negative - Negative POCT U UROBILI (test code = . 0.2-1 3260) POCT U BILI (test code = 3261) . Negative - Negative POCT U BLD (test code = 3257) . Negative - Negative POCT U COLOR (test code = 3266) yellow POCT U APPEAR (test code = 3267) [facility] [id number] 18:38:00 Test Item Value Reference Range Interpretation Comments POCT U SP GRAV (test code = 3255) . 1.005-1.025 POCT PH U (test code = 3254) . 5-8 POCT U LEUK EST (test code = 3263) . Negative - Negative POCT U NIT (test code = 3262) . Negative - Negative POCT U PROT (test code = 3259) 1+ Negative - Negative POCT U GLU (test code = 3256) Neg Negative - Negative POCT U KETONE (test code = 3258) . Negative - Negative POCT U UROBILI (test code = 3260) . 0.2-1 POCT U BILI (test code = 3261) . Negative - Negative POCT U BLD (test code = 3257) . Negative - Negative POCT U COLOR (test code = 3266) POCT U APPEAR (test code = 3267) [facility] URINALYSIS W SPECIFIC [id number] 18:37:00 Test Item Value Reference Range Interpretation Comments POCT U SP GRAV (test code = 3255) . 1.005-1.025 POCT PH U (test code = 3254) . 5-8 POCT U LEUK EST (test code = 3263) . Negative - Negative POCT U NIT (test code = 3262) . Negative - Negative POCT U PROT (test code = 3259) 1+ Negative - Negative POCT U GLU (test code = 3256) Neg Negative - Negative POCT U KETONE (test code = 3258) . Negative - Negative POCT U UROBILI (test code = 3260) . 0.2-1 POCT U BILI (test code = 3261) . Negative - Negative POCT U BLD (test code = 3257) . Negative - Negative POCT U COLOR (test code = 3266) POCT U APPEAR (test code = 3267) [facility] URINALYSIS W SPECIFIC [id number] 18:17:00 Test Item Value Reference Range Interpretation Comments POCT U SP GRAV (test code = . 1.005-1.025 3255) POCT PH U (test code = 3254) 5 mg/dl 5-8 POCT U LEUK EST (test code = negative Negative - Negative 3263) POCT U NIT (test code = 3262) negative Negative - Negative POCT U PROT (test code = 3259) trace Negative - Negative POCT U GLU (test code = 3256) negative Negative - Negative POCT U KETONE (test code = 3258) negative Negative - Negative POCT U UROBILI (test code = . 0.2-1 3260) POCT U BILI (test code = 3261) . Negative - Negative POCT U BLD (test code = 3257) negative Negative - Negative POCT U COLOR (test code = 3266) . POCT U APPEAR (test code = 3267) . [facility] URINALYSIS W SPECIFIC [id number] 21:13:00 Test Item Value Reference Range Interpretation Comments POCT U SP GRAV (test code = 3255) . 1.005-1.025 POCT PH U (test code = 3254) 5 mg/dl 5-8 POCT U LEUK EST (test code = trace Negative - Negative 3263) POCT U NIT (test code = 3262) neg Negative - Negative POCT U PROT (test code = 3259) trace Negative - Negative POCT U GLU (test code = 3256) neg Negative - Negative POCT U KETONE (test code = 3258) neg Negative - Negative POCT U UROBILI (test code = 3260) . 0.2-1 POCT U BILI (test code = 3261) . Negative - Negative POCT U BLD (test code = 3257) neg Negative - Negative POCT U COLOR (test code = 3266) POCT U APPEAR (test code = 3267) [facility] URINALYSIS W SPECIFIC [id number] 21:13:00 Test Item Value Reference Range Interpretation Comments POCT U SP GRAV (test code = 3255) . 1.005-1.025 POCT PH U (test code = 3254) 5 mg/dl 5-8 POCT U LEUK EST (test code = trace Negative - Negative 3263) POCT U NIT (test code = 3262) neg Negative - Negative POCT U PROT (test code = 3259) trace Negative - Negative POCT U GLU (test code = 3256) neg Negative - Negative POCT U KETONE (test code = 3258) neg Negative - Negative POCT U UROBILI (test code = 3260) . 0.2-1 POCT U BILI (test code = 3261) . Negative - Negative POCT U BLD (test code = 3257) neg Negative - Negative POCT U COLOR (test code = 3266) POCT U APPEAR (test code = 3267) [facility] URINALYSIS W SPECIFIC [id number] 19:38:00 Test Item Value Reference Range Interpretation Comments POCT U SP GRAV (test code = * 1.005-1.025 3255) POCT PH U (test code = 3254) * 5-8 POCT U LEUK EST (test code = * Negative - Negative 3263) POCT U NIT (test code = 3262) * Negative - Negative POCT U PROT (test code = 3259) trace Negative - Negative POCT U GLU (test code = 3256) negative Negative - Negative POCT U KETONE (test code = 3258) * Negative - Negative POCT U UROBILI (test code = * 0.2-1 3260) POCT U BILI (test code = 3261) * Negative - Negative POCT U BLD (test code = 3257) * Negative - Negative POCT U COLOR (test code = 3266) * POCT U APPEAR (test code = 3267) [facility] URINALYSIS W SPECIFIC [id number] 19:46:00 Test Item Value Reference Range Interpretation Comments POCT U SP GRAV (test code = 3255) . 1.005-1.025 POCT PH U (test code = 3254) . 5-8 POCT U LEUK EST (test code = 3263) . Negative - Negative POCT U NIT (test code = 3262) . Negative - Negative POCT U PROT (test code = 3259) trace Negative - Negative POCT U GLU (test code = 3256) neg Negative - Negative POCT U KETONE (test code = 3258) . Negative - Negative POCT U UROBILI (test code = 3260) . 0.2-1 POCT U BILI (test code = 3261) . Negative - Negative POCT U BLD (test code = 3257) . Negative - Negative POCT U COLOR (test code = 3266) . POCT U APPEAR (test code = 3267) . [facility] URINALYSIS W SPECIFIC [id number] 15:38:00 Test Item Value Reference Range Interpretation Comments POCT U SP GRAV (test code = 3255) . 1.005-1.025 POCT PH U (test code = 3254) 6 mg/dl 5-8 POCT U LEUK EST (test code = 1+ Negative - Negative 3263) POCT U NIT (test code = 3262) neg Negative - Negative POCT U PROT (test code = 3259) 2+ Negative - Negative POCT U GLU (test code = 3256) neg Negative - Negative POCT U KETONE (test code = 3258) neg Negative - Negative POCT U UROBILI (test code = 3260) . 0.2-1 POCT U BILI (test code = 3261) . Negative - Negative POCT U BLD (test code = 3257) 2+ Negative - Negative POCT U COLOR (test code = 3266) POCT U APPEAR (test code = 3267) [facility] URINALYSIS W SPECIFIC [id number] 18:33:00 Test Item Value Reference Range Interpretation Comments POCT U SP GRAV (test code = * 1.005-1.025 3255) POCT PH U (test code = 3254) * 5-8 POCT U LEUK EST (test code = * Negative - Negative 3263) POCT U NIT (test code = 3262) * Negative - Negative POCT U PROT (test code = 3259) trace Negative - Negative POCT U GLU (test code = 3256) negative Negative - Negative POCT U KETONE (test code = 3258) * Negative - Negative POCT U UROBILI (test code = * 0.2-1 3260) POCT U BILI (test code = 3261) * Negative - Negative POCT U BLD (test code = 3257) * Negative - Negative POCT U COLOR (test code = 3266) * POCT U APPEAR (test code = 3267) [facility] URINALYSIS W SPECIFIC [id number] 19:44:00 Test Item Value Reference Range Interpretation Comments POCT U SP GRAV (test code = * 1.005-1.025 3255) POCT PH U (test code = 3254) * 5-8 POCT U LEUK EST (test code = * Negative - Negative 3263) POCT U NIT (test code = 3262) * Negative - Negative POCT U PROT (test code = 3259) 1+ Negative - Negative POCT U GLU (test code = 3256) negative Negative - Negative POCT U KETONE (test code = 3258) * Negative - Negative POCT U UROBILI (test code = * 0.2-1 3260) POCT U BILI (test code = 3261) * Negative - Negative POCT U BLD (test code = 3257) * Negative - Negative POCT U COLOR (test code = 3266) * POCT U APPEAR (test code = 3267) [facility] [id number] 14:43:00 Test Item Value Reference Range Interpretation Comments POCT U SP GRAV (test code = 3255) . 1.005-1.025 POCT PH U (test code = 3254) . 5-8 POCT U LEUK EST (test code = 3263) . Negative - Negative POCT U NIT (test code = 3262) . Negative - Negative POCT U PROT (test code = 3259) 1+ Negative - Negative POCT U GLU (test code = 3256) Neg Negative - Negative POCT U KETONE (test code = 3258) . Negative - Negative POCT U UROBILI (test code = 3260) . 0.2-1 POCT U BILI (test code = 3261) . Negative - Negative POCT U BLD (test code = 3257) . Negative - Negative POCT U COLOR (test code = 3266) . POCT U APPEAR (test code = 3267) [facility] W/O [id number] 19:05:00 Test Item Value Reference Range Interpretation [...] = 0.00 K/mm3 0.0-0.1 N NRBC#) DIFFERENTIAL [id number] 19:05:00 Test Item Value Reference Range Interpretation [...] code = NORMAL NORMAL PLTMORPH) BASIC METABOLIC [id number] 18:42:00 Test Item Value Reference Range Interpretation [...] 9.2 MG/DL 8.4-10.2 N CA) HEPATIC FUNCTION [id number] 18:42:00 Test Item Value Reference Range Interpretation [...] code = 85 UNITS/L 38-126 N ALKP) [id number] 18:42:00 Test Item Value Reference Range Interpretation Comments LIPASE (test code = LIP) 109 UNITS/L 23-300 N HCG SERUM [id number] 18:42:00 Test Item Value Reference Range Interpretation Comments HCG SERUM QUAL (test code = HCGQL) NEGATIVE NEGATIVE A BASIC METABOLIC [id number] 18:40:00 Test Item Value Reference Range Interpretation [...] 9.2 MG/DL 8.4-10.2 N CA) HEPATIC FUNCTION [id number] 18:40:00 Test Item Value Reference Range Interpretation [...] code = 85 UNITS/L 38-126 N ALKP) [id number] 18:40:00 Test Item Value Reference Range Interpretation Comments LIPASE (test code = LIP) 109 UNITS/L 23-300 N HCG SERUM [id number] 18:40:00 Test Item Value Reference Range Interpretation Comments HCG SERUM QUAL (test code = HCGQL) NEGATIVE BASIC METABOLIC [id number] 18:39:00 Test Item Value Reference Range Interpretation [...] code = MG/DL 8.7-9.7 CA) HEPATIC FUNCTION [id number] 18:39:00 Test Item Value Reference Range Interpretation [...] code = 85 UNITS/L 38-126 N ALKP) [id number] 18:39:00 Test Item Value Reference Range Interpretation Comments LIPASE (test code = LIP) UNITS/L 23-300 HCG SERUM [id number] 18:39:00 Test Item Value Reference Range Interpretation Comments HCG SERUM QUAL (test code = HCGQL) NEGATIVE BASIC METABOLIC [id number] 18:37:00 Test Item Value Reference Range Interpretation [...] code = CA) MG/DL 8.7-9.7 HEPATIC FUNCTION [id number] 18:37:00 Test Item Value Reference Range Interpretation Comments TOTAL PROTEIN (test code = PROT) G/DL 6.3-8.2 ALBUMIN (test code = ALB) 4.2 G/DL 3.5-5.0 N BILIRUBIN TOTAL (test code = BILT) MG/DL 0.2-1.3 BILIRUBIN DIRECT (test code = BILD) MG/DL 0.0-0.3 SGOT/AST (test code = AST) UNITS/L 15-37 SGPT/ALT (test code = ALT) UNITS/L 9-52 ALKALINE PHOSPHATASE (test code = UNITS/L 38-126 ALKP) [id number] 18:37:00 Test Item Value Reference Range Interpretation Comments LIPASE (test code = LIP) UNITS/L 23-300 HCG SERUM [id number] 18:37:00 Test Item Value Reference Range Interpretation Comments HCG SERUM QUAL (test code = HCGQL) NEGATIVE BASIC METABOLIC [id number] 18:36:00 Test Item Value Reference Range Interpretation [...] code = CA) MG/DL 8.7-9.7 HEPATIC FUNCTION [id number] 18:36:00 Test Item Value Reference Range Interpretation Comments TOTAL PROTEIN (test code = PROT) G/DL 6.3-8.2 ALBUMIN (test code = ALB) 4.2 G/DL 3.5-5.0 N BILIRUBIN TOTAL (test code = BILT) MG/DL 0.2-1.3 BILIRUBIN DIRECT (test code = BILD) MG/DL 0.0-0.3 SGOT/AST (test code = AST) UNITS/L 15-37 SGPT/ALT (test code = ALT) UNITS/L 9-52 ALKALINE PHOSPHATASE (test code = UNITS/L 38-126 ALKP) [id number] 18:36:00 Test Item Value Reference Range Interpretation Comments LIPASE (test code = LIP) UNITS/L 23-300 HCG SERUM [id number] 18:36:00 Test Item Value Reference Range Interpretation Comments HCG SERUM QUAL (test code = HCGQL) NEGATIVE UA [id number] 18:33:00 Test Item Value Reference Range Interpretation Comments UA RBC (test code = RBCU) 3-5 RBC/HPF 0-3 A UA WBC (test code = XWBCU) 3-5 WBC/HPF 0-5 UA EPITHELIAL CELLS (test code = FEW EPI/HPF FEW EPIU) UA BACTERIA (test code = XBACU) FEW NONE UA AMORPHOUS SEDIMENT (test code FEW NONE A = AMORU) SOURCE OF URINE: CLEAN CATCHURINALYSIS [id number] 18:33:00 Test Item Value Reference Range Interpretation Comments UA COLOR (test code = YELLOW YELLOW COLU) UA APPEARANCE (test SLIGHT CLOUDY CLEAR Previou sly code = APPU) reported result : CLEAR Edited by : GUADALUPETBP on 02/26/19:456970 /08/05: APPEARANCE previously reported as: CLEAR UA [...] = UACULT) Criteria SOURCE OF URINE: CLEAN CATCHURINALYSIS [id number] 18:27:00 Test Item Value Reference Range Interpretation [...] = UACULT) SOURCE OF URINE: CLEAN CATCHUA [id number] 18:27:00 Test Item Value Reference Range Interpretation Comments UA RBC (test code = RBCU) RBC/HPF 0-3 UA WBC (test code = XWBCU) WBC/HPF 0-5 UA EPITHELIAL CELLS (test code = EPI/HPF FEW EPIU) UA BACTERIA (test code = XBACU) NONE SOURCE OF URINE: CLEAN CATCHURINALYSIS [id number] 18:27:00 Test Item Value Reference Range Interpretation [...] = UACULT) SOURCE OF URINE: CLEAN CATCHUA [id number] 18:27:00 Test Item Value Reference Range Interpretation Comments UA RBC (test code = RBCU) RBC/HPF 0-3 UA WBC (test code = XWBCU) WBC/HPF 0-5 UA EPITHELIAL CELLS (test code = EPI/HPF FEW EPIU) UA BACTERIA (test code = XBACU) NONE SOURCE OF URINE: CLEAN CATCHCBC W/O [id number] 18:25:00 Test Item Value Reference Range Interpretation [...] = 0.00 K/mm3 0.0-0.1 N NRBC#) DIFFERENTIAL [id number] 18:25:00 Test Item Value Reference Range Interpretation Comments RBC MORPHOLOGY REQUIRED (test code = RBCM) PLATELET ESTIMATE (test code = PLTEST) ADEQUATE PLATELET MORPHOLOGY (test code = NORMAL PLTMORPH) CBC W/O [id number] 18:25:00 Test Item Value Reference Range Interpretation [...] = 0.00 K/mm3 0.0-0.1 N NRBC#) DIFFERENTIAL [id number] 18:25:00 Test Item Value Reference Range Interpretation Comments RBC MORPHOLOGY REQUIRED (test code = RBCM) PLATELET ESTIMATE (test code = PLTEST) ADEQUATE PLATELET MORPHOLOGY (test code = NORMAL PLTMORPH)
--- NOTE | 2022-04-03 23:29 | EDPHYS ---
Physician Documentation [facility] Name: Karsten Zamora Age: 31 yrs Sex: Female : 1990 Arrival Date: 04/03/2022 Time: 23:16 Bed 11 Private MD: ED Physician Osbaldo Nation HPI: 04/03 23:31 This 31 yrs old Black Female presents to ER via Ambulatory with complaints of Ear Pain. snw 23:31 The patient presents with drainage, a fullness, pain, swelling. The complaints affect snw the right ear. Onset: The symptoms/episode began/occurred acutely. Modifying factors: The symptoms are alleviated by nothing, the symptoms are aggravated by pulling on ears, touching. Associated signs and symptoms: Pertinent positives: congestion. Severity of symptoms: At their worst the symptoms were moderate severe in the emergency department the symptoms are unchanged. The patient has not experienced similar symptoms in the past. The patient has been recently seen by a physician: with different complaint(s). 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, Verified, EDC 04/07/2022, Gestational age from LMP: 39 weeks 4 kb3 days Historical: - Allergies: 23:25 No Known Allergies; kb3 - Home Meds: 23:25 amlodipine 10 mg tab 1 tab once daily [Active]; hydrochlorothiazide 25 mg Oral tab 1 kb3 tab once daily [Active]; Vitamin Oral tab 1 tab once daily [Active]; aspirin 81 mg Oral cap 1 cap once daily [Active]; Iron CR 250 mg Oral cpER [Active]; - PMHx: 23:25 Hypertension; kb3 - PSHx: 23:25 None; kb3 - Immunization history:: Adult Immunizations up to date, Client reports receiving the 2nd dose of the Covid vaccine, Last tetanus immunization: up to date. - Social history:: Smoking status: Patient denies any tobacco usage or history of. ROS: 23:31 Constitutional: Negative for fever, chills, and weight loss, Eyes: Negative for injury, snw pain, redness, and discharge, Neck: Negative for injury, pain, and swelling, Cardiovascular: Negative for chest pain, palpitations, and edema, Respiratory: Negative for shortness of breath, cough, wheezing, and pleuritic chest pain, Abdomen/GI: Negative for abdominal pain, nausea, vomiting, diarrhea, and constipation, Back: Negative for injury and pain, : Negative for injury, bleeding, discharge, and swelling, MS/Extremity: Negative for injury and deformity, Skin: Negative for injury, rash, and discoloration, Neuro: Negative for headache, weakness, numbness, tingling, and seizure, Psych: Negative for depression, anxiety, suicide ideation, homicidal ideation, and hallucinations. 23:31 ENT: Positive for ear pain, sinus congestion. Exam: 23:30 Constitutional: This is a well developed, well nourished patient who is awake, alert, snw and in no acute distress. Head/Face: Normocephalic, atraumatic. Eyes: Pupils equal round and reactive to light, extra-ocular motions intact. Lids and lashes normal. Conjunctiva and sclera are non-icteric and not injected. Cornea within normal limits. Periorbital areas with no swelling, redness, or edema. Neck: Trachea midline, no thyromegaly or masses palpated, and no cervical lymphadenopathy. Supple, full range of motion without nuchal rigidity, or vertebral point tenderness. No Meningismus. Chest/axilla: Normal chest wall appearance and motion. Nontender with no deformity. No lesions are appreciated. Cardiovascular: Regular rate and rhythm with a normal S1 and S2. No gallops, murmurs, or rubs. Normal PMI, no JVD. No pulse deficits. Respiratory: Lungs have equal breath sounds bilaterally, clear to auscultation and percussion. No rales, rhonchi or wheezes noted. No increased work of breathing, no retractions or nasal flaring. Back: No spinal tenderness. No costovertebral tenderness. Full range of motion. Skin: Warm, dry with normal turgor. Normal color with no rashes, no lesions, and no evidence of cellulitis. Neuro: Awake and alert, GCS 15, oriented to person, place, time, and situation. Cranial nerves II-XII grossly intact. Motor strength 5/5 in all extremities. Sensory grossly intact. Cerebellar exam normal. Normal gait. Psych: Awake, alert, with orientation to person, place and time. Behavior, mood, and affect are within normal limits. 23:30 ENT: External ear(s): are unremarkable, Ear canal(s): erythema, purulent discharge, swelling, that is moderate, of the right canal. Vital Signs: 23:21 BP 139 / 90; Pulse 114; Resp 20; Temp 98.1; Pulse Ox 100% ; Weight 88.9 kg; Height 5 kb3 ft. 4 in. (162.56 cm); Pain 9/10; 23:21 Body Mass Index 33.64 (88.90 kg, 162.56 cm) kb3 MDM: 23:18 Patient medically screened. rn 23:30 Data reviewed: vital signs, nurses notes. Data interpreted: Pulse oximetry: on room air snw is 100 %. Interpretation: normal. Counseling: I had a detailed discussion with the patient and/or guardian regarding: the historical points, exam findings, and any diagnostic results supporting the discharge/admit diagnosis, the presence of at least one elevated blood pressure reading (>120/80) during this emergency department visit, the need for outpatient follow up, to return to the emergency department if symptoms worsen or persist or if there are any questions or concerns that arise at home. Special discussion: Based on the history and exam findings, there is no indication for further emergent testing or inpatient evaluation. I discussed with the patient/guardian the need to see the ENT specialist for further evaluation of the symptoms. Administered Medications: 23:39 Drug: Xvajbbll-Xnywkxpcn-FB Drops 4 drops Route: Otic; Site: right ear; kb3 23:52 Follow up: Response: No adverse reaction; Medication administered at discharge. kb3 23:39 Drug: HYDROcodone-acetaminophen 5 mg-325 mg 1 tabs Route: PO; kb3 23:51 Follow up: Response: No adverse reaction; Medication administered at discharge. kb3 Disposition: 04/04 00:38 Co-signature as Attending Physician, Osbaldo Nation MD. rn Disposition Summary: 04/03/22 23:28 Discharge Ordered Location: Home snw Condition: Stable snw Diagnosis - Other otitis externa, right ear snw Followup: snw - With: Emergency Department - When: As needed - Reason: Worsening of condition Followup: snw - With: Private Physician - When: 2 - 3 days - Reason: Recheck today's complaints, Continuance of care, Re-evaluation by your physician Discharge Instructions: - Discharge Summary Sheet snw - Ear Drops, Adult snw - Otitis Externa snw Forms: - Medication Reconciliation Form snw - Thank You Letter snw - Antibiotic Education snw - Prescription Opioid Use snw Prescriptions: - Cortisporin-TC 3.3-3-10-0.5 mg/mL Otic Suspension - instill 4 drops by OTIC route every 6 hours; 1 bottle; Refills: 0, Product snw Selection Permitted - Tylenol-Codeine #3 300 mg-30 mg Oral - take 1 tablet by ORAL route 2-3 times daily; 12 tablet; Refills: 0, Product snw Selection Permitted Signatures: Parsi Ann, LORI-C ILLUSTRATOR SET-Csnw Osbaldo Nation MD MD rn Bradberry, Kelly, RN RN kb3
--- NOTE | 2022-04-03 23:29 | ER ---
Nurse's Notes [facility] Name: Karsten Zamora Age: 31 yrs Sex: Female : 1990 Arrival Date: 04/03/2022 Time: 23:16 Bed 11 Private MD: Diagnosis: Other otitis externa, right ear Presentation: 04/03 23:21 Chief complaint: Patient states: Pt reports right ear pressure and popping since this kb3 morning. Also states congestion and runny nose. Coronavirus screen: Vaccine status: Patient reports receiving the 2nd dose of the covid vaccine. Client denies travel out of the [place] in the last 14 days. Ebola Screen: Patient negative for fever greater than or equal to 101.5 degrees Fahrenheit, and additional compatible Ebola Virus Disease symptoms Patient denies exposure to infectious person. Patient denies travel to an Ebola-affected area in the 21 days before illness onset. No symptoms or risks identified at this time. Initial Sepsis Screen: Does the patient meet any 2 criteria? No. Patient's initial sepsis screen is negative. Does the patient have a suspected source of infection? No. Patient's initial sepsis screen is negative. Risk Assessment: Do you want to hurt yourself or someone else? Patient reports no desire to harm self or others. Onset of symptoms was April 02, 2022. 23:21 Method Of Arrival: Ambulatory kb3 23:21 Acuity: JOSE 4 kb3 Triage Assessment: 23:25 General: Appears in no apparent distress. Behavior is calm, cooperative. Pain: kb3 Complains of pain in right ear. EENT: Reports nasal congestion nasal discharge pain. 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 - Social history:: Smoking status: Patient denies any tobacco usage or history of. Screenin:30 Abuse screen: Denies threats or abuse. Denies injuries from another. Nutritional kb3 screening: No deficits noted. Tuberculosis screening: No symptoms or risk factors identified. Fall Risk None identified. Assessment: 23:30 General: See triage note. kb3 Vital Signs: 23:21 BP 139 / 90; Pulse 114; Resp 20; Temp 98.1; Pulse Ox 100% ; Weight 88.9 kg; Height 5 kb3 ft. 4 in. (162.56 cm); Pain 9/10; 23:21 Body Mass Index 33.64 (88.90 kg, 162.56 cm) kb3 ED Course: 23:16 Patient arrived in ED. ja2 23:18 Osbaldo Nation MD is Attending Physician. rn 23:18 Paris Ann FNP-C [facility]. snw 23:25 Triage completed. kb3 23:25 Arm band placed on right wrist. kb3 23:30 Patient has correct armband on for positive identification. Bed in low position. Call kb3 light in reach. 23:30 No provider procedures requiring assistance completed. Patient did not have IV access kb3 during this emergency room visit. Administered Medications: 23:39 Drug: Epjyrlei-Irrgvrabl-ES Drops 4 drops Route: Otic; Site: right ear; kb3 23:52 Follow up: Response: No adverse reaction; Medication administered at discharge. kb3 23:39 Drug: HYDROcodone-acetaminophen 5 mg-325 mg 1 tabs Route: PO; kb3 23:51 Follow up: Response: No adverse reaction; Medication administered at discharge. kb3 Medication: 23:30 VIS not applicable for this client. kb3 Outcome: 23:28 Discharge ordered by . snw 23:45 Discharged to home ambulatory, with family. kb3 23:45 Condition: stable 23:45 Discharge instructions given to patient, family, Instructed on discharge instructions, follow up and referral plans. medication usage, Demonstrated understanding of instructions, follow-up care, medications, Prescriptions given X 2. 23:52 Patient left the ED. kb3 Signatures: Paris Ann FNP-C FNP-Csnw Osbaldo Nation MD MD rn Branden, Mandy Ham, RN RN kb3
[2022-04-03] MEDS ORDERED: HYDROCODONE/APAP 5/325 MG TAB ONE (23:30)
[2022-04-03] MEDS ORDERED: NEOMY/POLY/HC 1% OTIC DROPS ONE (23:33)
[2022-04-04 01:22] VITALS: BP 139/90; TEMP 98.1; O2SAT 100
== END 2022-04-03 23:52 | disposition home or self-care (01) ==
LOC: ER 23:10
DX: O99.891 Other specified diseases and conditions complicating pregnancy (principal); O99.413 Diseases of the circulatory system complicating pregnancy, third trimester; H60.8X1 Other otitis externa, right ear; I10 Essential (primary) hypertension; Z3A.39 39 weeks gestation of pregnancy
CPT/HCPCS: 99283

== ENCOUNTER → 2023-08-05 | Emergency (ER) | payer OTHER ==
[~2023-08-05] MED LIST: DIPHENHYDRAMINE 50 MG/ML VIAL ONE; KETOROLAC 30 MG/ML INJ ONE; METOCLOPRAMIDE 10 MG/2mL INJ ONE
[2023-08-05 18:15] LABS: Specific Gravity 1.021 (1.005-1.030); Urine Bacteria None Seen /HPF (<20); Urine Bilirubin NEGATIVE (Negative); Urine Blood 2+ (Negative); Urine Clarity Clear (Clear); Urine Color Light-Yellow (Yellow); Urine Crystals Unidentified Few /HPF (None Seen); Urine Glucose NEGATIVE (Negative); Urine Mucus Slight /HPF (None Seen); Urine Protein NEGATIVE (Negative); Urine RBC 21-50 /HPF (None Seen); Urine Urobilinogen 1+ (Normal); Urine pH 6.5 (5.0-7.0)
--- NOTE | 2023-08-05 19:03 | RAD REPORT ---
EXAM DESCRIPTION: CT - Head Brain Wo Cont - 08/05/2023 6:33 pm CLINICAL HISTORY: elevated BP;Dizziness COMPARISON: Head Brain Wo Cont dated 08/23/2020; Head Brain Wo Cont dated 08/28/2019 TECHNIQUE: Noncontrast head CT images were obtained without IV contrast. Multiplanar reformats were generated and reviewed. All CT scans are performed using dose optimization technique as appropriate and may include automated exposure control or mA/KV adjustment according to patient size. FINDINGS: No intracranial hemorrhage, mass, or edema. Midline structures are unremarkable. Normal ventricular caliber for age. Lowery-white matter differentiation is preserved, without evidence of acute infarct. No abnormal extra- axial fluid collections. Mastoid air cells and visualized portions of the paranasal sinuses are clear. No acute bony findings. IMPRESSION: No evidence of an acute intracranial process.
[2023-08-05 20:05] LABS: Hematocrit 36.9 % (36.0-45.0); MCV 65.5 fL (80-100); Platelets 340 thou/uL (152-406); RBC Red Blood Cell Count 5.63 M/uL (3.86-4.86)
[2023-08-05 20:06] LABS: MPV 7.3 fL (7.6-11.3)
--- NOTE | 2023-08-05 20:10 | RAD REPORT ---
EXAM DESCRIPTION: [facility] Single View08/05/2023 7:13 pm CLINICAL HISTORY: CHEST PAIN COMPARISON: Chest Single View dated 08/23/2020; Chest Single View dated 08/28/2019 TECHNIQUE: Portable AP view of the chest. FINDINGS: The lungs are clear. No pneumothorax or effusion. The cardiomediastinal contours are unre markable. IMPRESSION: No acute cardiopulmonary process.
[2023-08-05 20:13] LABS: Potassium 3.8 mEq/L (3.5-5.1)
--- NOTE | 2023-08-05 20:33 | ER ---
Nurse's Notes [facility] Name: Karsten Zamora Age: 33 yrs Sex: Female : 1990 Arrival Date: 08/05/2023 Time: 17:40 Bed 15 Private MD: Diagnosis: Essential (primary) hypertension Presentation: 08/05 17:48 Chief complaint: Patient states: Headache and dizziness last night at work, states that ph she felt like it was her BP, picked up her meds from [facility] and checked her BP while there and it was 160/104, went home and took her meds then went to sleep, when she woke up BP had gone down to 130s/90s but she still had a headache, also reports frequent urination and chills. Coronavirus screen: Vaccine status: Patient reports being unvaccinated. Ebola Screen: No symptoms or risks identified at this time. Initial Sepsis Screen: Does the patient meet any 2 criteria? No. Patient's initial sepsis screen is negative. Does the patient have a suspected source of infection? No. Patient's initial sepsis screen is negative. Risk Assessment: Do you want to hurt yourself or someone else? Patient reports no desire to harm self or others. Onset of symptoms was August 05, 2023. 17:48 Method Of Arrival: Ambulatory ph 17:56 Acuity: JOSE 3 ph Historical: - Home Meds: 17:52 amlodipine 10 mg tab 1 tab once daily [Active]; hydrochlorothiazide 25 mg Oral tab 1 ph tab once daily [Active]; - PMHx: 17:52 Hypertension; ph - Immunization history:: Adult Immunizations unknown. - Social history:: Smoking status: Patient reports the use of cigarette tobacco products, smokes one-half pack cigarettes per day. Screenin:11 [facility] ED Fall Risk Assessment (Adult) Score/Fall Risk Level 0 - 2 = Low Risk. Abuse as6 screen: Denies threats or abuse. Denies injuries from another. Nutritional screening: No deficits noted. Tuberculosis screening: No symptoms or risk factors identified. Assessment: 18:10 General: Appears in no apparent distress. Behavior is calm, cooperative. General: as6 Reports chills for fever for. Pain: Complains of pain in head Quality of pain is described as aching. Neuro: Level of Consciousness is awake, alert, obeys commands, Oriented to person, place, time, situation, Reports headache. Respiratory: Respiratory effort is even, unlabored, Respiratory pattern is regular, symmetrical. : Reports burning with urination, urinary frequency. Derm: Skin is intact, is healthy with good turgor. 18:17 General: pt refused COVID and flu swabs. provider notified . as6 19:00 General: Appears in no apparent distress. comfortable, well groomed, well developed, pf1 Behavior is calm, cooperative, appropriate for age, quiet. 19:00 Pain: Complains of pain in head. Neuro: Level of Consciousness is awake, alert, obeys pf1 commands, Oriented to person, place, time, situation, Reports dizziness, headache frontal area. Cardiovascular: Reports elevated BP Capillary refill < 3 seconds Patient's skin is warm and dry. Respiratory: No deficits noted. Airway is patent Respiratory effort is even, unlabored, Respiratory pattern is regular, symmetrical. GI: No deficits noted. No signs and/or symptoms were reported involving the gastrointestinal system. : No deficits noted. No signs and/or symptoms were reported regarding the genitourinary system. EENT: No deficits noted. No signs and/or symptoms were reported regarding the EENT system. 20:00 Reassessment: Patient appears in no apparent distress at this time. Patient and/or pf1 family updated on plan of care and expected duration. Pain level reassessed. Patient is alert, oriented x 3, equal unlabored respirations, skin warm/dry/pink. Patient states feeling better. Patient states symptoms have improved. Vital Signs: 17:56 BP 133 / 93; Pulse 92; Resp 18; Temp 97.8; Pulse Ox 100% ; Weight 84.82 kg; Height 5 ph ft. 3 in. ; 19:00 BP 119 / 96; Pulse 89; Resp 16; Pulse Ox 100% on R/A; Pain 7/10; pf1 20:00 BP 132 / 88; Pulse 82; Resp 19; Pulse Ox 99% ; pf1 20:30 BP 135 / 82; Pulse 87; Resp 16; Pulse Ox 99% ; Pain 0/10; pf1 17:56 Body Mass Index 33.13 (84.82 kg, 160.02 cm) ph 19:00 Pain Scale: Adult pf1 20:30 Pain Scale: Adult pf1 ED Course: 17:44 Patient arrived in ED. ae5 17:44 Erin Baxter [facility]. sb4 17:45 Thor Thornton MD is Attending Physician. sb4 17:52 Arm band placed on. ph 17:57 Triage completed. ph 18:11 Bed in low position. Call light in reach. as6 18:34 Head Brain Wo Cont CT In Process Unspecified. EDMS 19:15 XRAY Chest (1 view) In Process Unspecified. EDMS 19:48 No provider procedures requiring assistance completed. Inserted saline lock: 22 gauge pf1 in right antecubital area, using aseptic technique. Blood collected. 20:02 Margaret Dobbins, RN is Primary Nurse. pf1 20:47 IV discontinued, intact, bleeding controlled, No redness/swelling at site. Pressure pf1 dressing applied. 20:50 Provided Education on: follow up . pf1 Administered Medications: 19:56 Drug: Ketorolac IVP 15 mg IVP once Route: IVP; Site: right antecubital; pf1 20:48 Follow up: Response: No adverse reaction; Marked relief of symptoms pf1 19:56 Drug: metoCLOPramide IVP 10 mg IVP once; over 1 to 2 minutes Route: IVP; Site: right pf1 antecubital; 20:47 Follow up: Response: No adverse reaction; Marked relief of symptoms pf1 19:56 Drug: diphenhydrAMINE IVP 25 mg IVP once Route: IVP; Site: right antecubital; pf1 20:47 Follow up: Response: No adverse reaction; Marked relief of symptoms pf1 Medication: 18:11 VIS not applicable for this client. as6 Outcome: 20:33 Discharge ordered by . sb4 20:48 Discharged to home ambulatory, pf1 20:48 Condition: improved 20:48 Discharge instructions given to patient, Instructed on discharge instructions, follow up and referral plans. Demonstrated understanding of instructions, follow-up care, 20:50 Patient left the ED. pf1 Signatures: Dispatcher [employer] Linda Jimenez, RN RN Jonathan Louie RN RN as6 Erin Baxter PA-C PA-C sb4 Margaret Dobbins, NORMAN RN pf1 Karen Montaño ae5 Corrections: (The following items were deleted from the chart) 08/06 05:46 08/05 20:30 BP 135 / 82; Pulse 7bpm; Resp 16bpm; Pulse Ox 99%; Pain 0/10, Adult; pf1 pf1
--- NOTE | 2023-08-05 20:34 | EDPHYS ---
Physician Documentation [facility] Name: Karsten Zamora Age: 33 yrs Sex: Female : 1990 Arrival Date: 08/05/2023 Time: 17:40 Bed 15 Private MD: ED Physician Thor Thornton HPI: 08/05 17:55 This 33 yrs old Black Female presents to ER via Ambulatory with complaints of high sb4 blood pressure. 17:56 Patient states that she had headache this morning associated with some dizziness so she sb4 checked her blood pressure noted to be elevated. She does not take her blood pressure medicine regularly. She states she noted it to be 160/104. She then took her amlodipine and hydrochlorothiazide and took a nap. She states when she woke up her blood pressure had improved to 135/97 but was still experiencing headache. She also endorses chills and frequent urination. Historical: - Home Meds: 17:52 amlodipine 10 mg tab 1 tab once daily [Active]; hydrochlorothiazide 25 mg Oral tab 1 ph tab once daily [Active]; - PMHx: 17:52 Hypertension; ph - Immunization history:: Adult Immunizations unknown. - Social history:: Smoking status: Patient reports the use of cigarette tobacco products, smokes one-half pack cigarettes per day. ROS: 17:56 Cardiovascular: Negative for chest pain, palpitations, and edema, sb4 17:56 Constitutional: Positive for chills, 17:56 : Positive for urinary frequency, 17:56 Neuro: Positive for dizziness, headache, 17:56 All other systems are negative, Exam: 17:56 Constitutional: This is a well developed, well nourished patient who is awake, alert, sb4 and in no acute distress. Head/Face: Normocephalic, atraumatic. Eyes: Extra-ocular motions intact. Periorbital areas with no swelling, redness, or edema. ENT: Mucous membranes moist. Cardiovascular: Regular rate and rhythm with a normal S1 and S2. Respiratory: Lungs have equal breath sounds bilaterally, clear to auscultation and percussion. No rales, rhonchi or wheezes noted. No increased work of breathing, no retractions or nasal flaring. Abdomen/GI: Soft, non-tender, no distension. Skin: Warm, dry with normal turgor. Normal color with no rashes, no lesions, and no evidence of cellulitis. MS/ Extremity: Pulses equal, no cyanosis. Neurovascular intact. Full, normal range of motion. Neuro: Awake and alert, GCS 15, oriented to person, place, time, and situation. Motor strength 5/5 in all extremities. Sensory grossly intact. Vital Signs: 17:56 BP 133 / 93; Pulse 92; Resp 18; Temp 97.8; Pulse Ox 100% ; Weight 84.82 kg; Height 5 ph ft. 3 in. ; 19:00 BP 119 / 96; Pulse 89; Resp 16; Pulse Ox 100% on R/A; Pain 7/10; pf1 20:00 BP 132 / 88; Pulse 82; Resp 19; Pulse Ox 99% ; pf1 20:30 BP 135 / 82; Pulse 87; Resp 16; Pulse Ox 99% ; Pain 0/10; pf1 17:56 Body Mass Index 33.13 (84.82 kg, 160.02 cm) ph 19:00 Pain Scale: Adult pf1 20:30 Pain Scale: Adult pf1 MDM: 17:47 Patient medically screened. sb4 17:57 Differential Diagnosis Hypertensive emergency, COVID, flu, UTI. sb4 20:32 Data reviewed: vital signs, nurses notes, lab test result(s), EKG, radiologic studies, sb4 and as a result, I will discharge patient. Counseling: I had a detailed discussion with the patient and/or guardian regarding the historical points, exam findings, and any diagnostic results supporting the discharge/admit diagnosis, the presence of at least one elevated blood pressure reading (>120/80) during this emergency department visit, lab results, radiology results, the need for outpatient follow up, for definitive care, to return to the emergency department if symptoms worsen or persist or if there are any questions or concerns that arise at home. 08/05 17:54 Order name: UAM; Complete Time: 18:16 sb4 08/05 17:54 Order name: Test, Urine; Complete Time: 18:15 sb4 08/05 19:03 Order name: Basic Metabolic Panel; Complete Time: 20:48 sb4 08/05 19:03 Order name: CBC with Diff sb4 08/05 19:03 Order name: Troponin HS; Complete Time: 20:48 sb4 08/05 18:17 Order name: Head Brain Wo Cont CT; Complete Time: 19:05 sb4 08/05 19:03 Order name: XRAY Chest (1 view); Complete Time: 20:12 sb4 08/05 18:17 Order name: EKG Strip; Complete Time: 18:31 sb4 EC:37 Rate is 90 beats/min. Rhythm is regular, Normal Sinus Rhythm. CO interval is normal at sb4 124 msec. QRS interval is normal at 82 msec. QT interval is normal at 368 msec. No Q waves. T waves are Normal. No ST changes noted. Clinical impression: Normal ECG. Interpreted by me. Reviewed by me. Administered Medications: 19:56 Drug: Ketorolac IVP 15 mg IVP once Route: IVP; Site: right antecubital; pf1 20:48 Follow up: Response: No adverse reaction; Marked relief of symptoms pf1 19:56 Drug: metoCLOPramide IVP 10 mg IVP once; over 1 to 2 minutes Route: IVP; Site: right pf1 antecubital; 20:47 Follow up: Response: No adverse reaction; Marked relief of symptoms pf1 19:56 Drug: diphenhydrAMINE IVP 25 mg IVP once Route: IVP; Site: right antecubital; pf1 20:47 Follow up: Response: No adverse reaction; Marked relief of symptoms pf1 Disposition Summary: 08/05/23 20:33 Discharge Ordered Notes: Location: Home sb4 Problem: new sb4 Symptoms: have improved sb4 Condition: Stable sb4 Diagnosis - Essential (primary) hypertension sb4 Followup: sb4 - With: Emergency Department - When: As needed - Reason: Trouble breathing, Worsening of condition Discharge Instructions: - Discharge Summary Sheet sb4 - Hypertension, Adult sb4 Forms: - Work release form sb4 - Family Work Release sb4 - Thank You Letter sb4 - Patient Portal Instructions sb4 - Leadership Thank You Letter sb4 Signatures: Dispatcher [employer] Linda Jimenez RN RN ph Slawson, Ashby, RN RN as6 Erin Baxter PAYadira PAYadira sb4 Margaret Dobbins RN RN pf1
[2023-08-05 20:47] LABS: Troponin High Sensitivity 3.5 pg/mL (<58.9)
[2023-08-05 21:03] LABS: White Blood Cell Scan OK (OK)
[2023-08-05 21:04] LABS: Anisocytosis 1+; Blood Morphology Comment NOTED (NOT SEEN); Platelet Estimate ADEQ; Poikilocytosis 1+
[2023-08-05 21:51] VITALS: BP 135/82; TEMP 97.8; O2SAT 99
== END ==
LOC: ER 17:40
DX: I10 Essential (primary) hypertension (principal); F17.210 Nicotine dependence, cigarettes, uncomplicated
CPT/HCPCS: 85025; 81001; 80048; 36415; 81025; 84484; 70450; 71045; 96375; 96374; 99284; J2765; J1200